=== PATIENT | female | born 1930 | race Caucasian/White ===

== ENCOUNTER 2019-02-07 06:43 | Inpatient (IN) | payer MEDICARE, OTHER ==
[~2019-02-07] VITALS: Ht 160 cm; Wt 54.9 kg
[~2019-02-07 06:43] MED LIST: CEREFOLIN NAC1 EAC1 PO; COLACE100 MG ORAL; COZAAR50 MG ORAL; CREON DR 24,001 EACH PO; CYMBALTA30 MG ORAL; DOXEPIN HCL10 MG ORAL; FERROUS SULFAT325 MG ORAL; IBUPROFEN400 MG ORAL; INVANZ1 G1 IM; INVANZ1 G1 IV; JANUVIA100 MG ORAL; LANTUS5 UNITS SUBQ; LINZESS145 MCG PO; LYRICA50 MG ORAL; METFORMIN HCL500 M1 ORAL; NORCO 5-325 TA1 EACH ORAL; NORTRIPTYLINE H50 MG PO; OMEPRAZOLE20 M2 ORAL; PRANDIN1 MG ORAL; REMERON15 MG ORAL; SYNTHROID75 MCG ORAL; TROSPIUM CHLORI20 MG PO; TYLENOL EXTRA500 MG ORAL; VITAMIN C500 M1 ORAL; VITAMIN D310000 UNIT PO; [UNRECOGNIZED DRUG - OTHER] PO
--- NOTE | 2019-02-07 06:45 | NUR ---
ED Nurse Note: pt brought in by [facility] from [facility] c/c seizure, per EMS report, pt was found on bed having seizure by nursing staff, tonic clonic 1 to 2 min. unk last known date for seizure, ems stated pt takes gabapentin for seizure. pt awake, withdraws to pain, makes incomprehensible sounds. Pt vss, NSR on radiographer cardiac catheterization, resp even and unlabored on RA, airway intact, -n/v/d. noted rooney. noted vaginal bleeding with clots. noted BM x1, brown formed stool. ERMD notified regarding pt's rooney condition and vaginal bleeding. noted redness on buttock area. pt cleaned and changed into gown. will cont monitor.
[2019-02-07] MEDS ORDERED: levETIRAcetam 1,000mg/NS100ml 100 ML IVPB ONE (07:00)
--- NOTE | 2019-02-07 07:05 | NUR ---
ED Nurse Note: pt off to CT.
--- NOTE | 2019-02-07 07:08 | NUR ---
HAND-OFF: Report given to YUE [facility]. PT KEISHALTEsther OFF TO CT.
--- NOTE | 2019-02-07 07:08 | NUR ---
ED Nurse Note: informed receiving RN regarding med recon, pt's packet w/ Dr. Armstrong, and regarding pt's skin condition, redness on buttoc, endorsed picture.
[2019-02-07 07:13] VITALS: BP 138/68
[2019-02-07 07:16] LABS: APPEARANCE,URINE CLEAR; BILIRUBIN, URINE NEGATIVE (NEGATIVE); COLOR,URINE PALE YELLOW; GLUCOSE, URINE (UA) NEGATIVE (NEGATIVE); KETONES,URINE NEGATIVE (NEGATIVE); LEUKOCYTE ESTERASE ,URINE 2+ (NEGATIVE); NITRITE,URINE NEGATIVE (NEGATIVE); PH,URINE 7 (4.5-8.0); PROTEIN,URINE 1+ (NEGATIVE); UROBILINOGEN,URINE NORMAL MG/DL (0.0-1.0)
[2019-02-07 07:21] LABS: BASOPHILS % (AUTO) 1.4 % (0.0-2.0); EOSINOPHILS % (AUTO) 1.8 % (0.0-3.0); HEMATOCRIT 38.7 % (37.0-47.0); HEMOGLOBIN 12.9 G/DL (12.0-16.0); LYMPHOCYTES % (AUTO) 36.4 % (20.0-45.0); MEAN CORPUSCULAR VOLUME 88 FL (80-99); MONOCYTES % (AUTO) 8.1 % (1.0-10.0); NEUTROPHILS % (AUTO) 52.2 % (45.0-75.0); PLATELET COUNT 145 K/UL (150-450); RED BLOOD COUNT 4.39 M/UL (4.20-5.40); RED CELL DISTRIBUTION WIDTH 12.4 % (11.6-14.8); WHITE BLOOD COUNT 7.7 K/UL (4.8-10.8)
[2019-02-07 07:29] LABS: INR 0.9 (0.9-1.1)
[2019-02-07 07:37] LABS: ANION GAP 11 mmol/L (5-15); BLOOD UREA NITROGEN 9 mg/dL (7-18); CALCIUM 9.7 MG/DL (8.5-10.1); CARBON DIOXIDE 23 MMOL/L (21-32); CHLORIDE 103 MMOL/L (98-107); CREATININE 0.7 MG/DL (0.55-1.30); POTASSIUM 4.5 MMOL/L (3.5-5.1); SODIUM 137 MMOL/L (136-145)
[2019-02-07 07:42] LABS: ALANINE AMINOTRANSFERASE 21 U/L (12-78); ALBUMIN 3.3 G/DL (3.4-5.0); ALBUMIN/GLOBULIN RATIO 1.1 (1.0-2.7); ALKALINE PHOSPHATASE 73 U/L (46-116); ASPARTATE AMINO TRANSFERASE 38 U/L (15-37); BILIRUBIN,TOTAL 0.3 MG/DL (0.2-1.0); CKMB 0.8 NG/ML (0.0-3.6); CREATINE KINASE 87 U/L (26-308)
--- NOTE | 2019-02-07 07:48 | NUR ---
ED Nurse Note: RN TOOK PICTURE OF SACRAL REDNESS. UNABLE TO UPLOAD IMAGE AT THIS TIME.
[2019-02-07] MEDS ORDERED: Azithromycin 500 MG in NS 275 ML IV ONE (08:00)
[2019-02-07] MEDS ORDERED: Piperacillin/Tazobactam 3.375 GM in NS 110 ML IVPB ONE (08:00)
--- NOTE | 2019-02-07 08:15 | History and Physical Report ---
DATE OF ADMISSION: 02/07/2019 CHIEF COMPLAINT: Seizures. HISTORY OF PRESENT ILLNESS: The patient is an 88-year-old female. She has multiple medical problems including history of stroke with left-sided hemiparesis, bronchospasm, bronchiectasis, history of urinary tract infections, meningioma, and diabetes. She was [facility] for [facility] antibiotic therapy for urinary tract infection. 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 She was less responsive after the seizure episode, was transferred here to the emergency room. She is currently just arrived. She is awake and just nod, but otherwise she does not follow commands. She is fairly somnolent and she does open her eyes and quickly falls back to sleep, but is easily arousable. PAST MEDICAL HISTORY: As above. PAST SURGICAL HISTORY: None. CURRENT MEDICATIONS: Reconciled and reviewed. ALLERGIES: None. FAMILY HISTORY: Unknown. SOCIAL HISTORY: There is no known history of tobacco, ethanol, or drugs. REVIEW OF SYSTEMS: Unobtainable as the patient is nonverbal. PHYSICAL EXAMINATION: VITAL SIGNS: Temperature 98 degrees, blood pressure 110/70, pulse 60, respirations 20. GENERAL: The patient is a chronically ill-appearing female. She is arousable, but is minimally verbal. NECK: Supple. HEART: Regular rate and rhythm. LUNGS: Clear. ABDOMEN: Soft, nontender, nondistended. EXTREMITIES: Without clubbing, cyanosis. NEUROLOGIC: The patient just nod yes and no to questions, but otherwise does not follow any commands. LABORATORY DATA: CT scan of the head are currently pending. ASSESSMENT: This is an elderly female with a history of diabetes, hypertension, prior history of stroke, questionable history of meningioma, admitted with new onset seizures. PLAN: Follow up head CT and routine laboratories. Well with Keppra. Neurology consultation. Admit to tele bed for further monitoring. The patient need swallow evaluation. Oh Armstrong M.D. DR: IVONE JOB#: [id number] CC:
[2019-02-07 09:00] VITALS: BP 117/60
--- NOTE | 2019-02-07 09:10 | NUR ---
ED Nurse Note: FAMILY MEMBER AT THE BED SIDE. SPOKEN TO DR GUTIERREZ ABOUT PT'S CONDITION.
--- NOTE | 2019-02-07 09:23 | Emergency Room Report ---
History of Present Illness General Chief Complaint: Seizure Source: Family Member, Medical Record, EMS Present Illness HPI 88-year-old female presents ED for evaluation. Patient brought in by EMS status post seizure this morning. Witnessed by nursing staff. Patient resides in [facility] facility. Lasted for a minute then resolved. Upon arrival patient postictal. EMS notes there is a history of seizures but does not see any antiepileptic occasions on her list. No reported fevers or chills. Nursing staff states that patient was transferred to SNF from [facility]. 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 At [facility]. Was on epileptic medication shortly after. But none at this time. Is currently receiving antibiotics for UTI. Patient is unable to provide any additional history at this time. No other aggravating relieving factors. No other associated symptoms Allergies: Coded Allergies: No Known Allergies (Unverified , 01/20/15) Patient History Past Medical History: DM, CVA/TIA Past Surgical History: other - brain surgery Pertinent Family History: none Social History: Denies: smoking, alcohol use, drug use Now: No Immunizations: UTD Reviewed Nursing Documentation: PMH: Agreed; PSxH: Agreed Nursing Documentation-PMH Hx Cardiac Problems: No Hx Diabetes: Yes Hx Cancer: Yes - Skin Ca on top of head,Bx done Hx Gastrointestinal Problems: No Hx Neurological Problems: Yes Hx Cerebrovascular Accident: Yes - 2011 Hx Neurologic Surgery: Yes - Head tumor surgery in 2011 Review of Systems All Other Systems: negative except mentioned in HPI Physical Exam Vital Signs Date Time Temp Pulse Resp B/P (MAP) Pulse Ox O2 Delivery O2 Flow Rate FiO2 02/07/19 06:45 98.8 79 18 138/68 (91) 100 Room Air Sp02 EP Interpretation: reviewed, normal General Appearance: lethargic, Postictal Head: normocephalic, atraumatic Eyes: bilateral eye normal inspection, bilateral eye PERRL ENT: hearing grossly normal, normal pharynx, no angioedema, normal voice Neck: full range of motion, supple/symm/no masses Respiratory: chest non-tender, lungs clear, normal breath sounds, speaking full sentences Cardiovascular #1: regular rate, rhythm, no edema Cardiovascular #2: 2+ carotid (R), 2+ carotid (L), 2+ radial (R), 2+ radial (L) , 2+ dorsalis pedis (R), 2+ dorsalis pedis (L) Gastrointestinal: normal bowel sounds, non tender, soft, non-distended, no guarding, no rebound Rectal: deferred Genitourinary: normal inspection, no CVA tenderness Musculoskeletal: back normal, gait/station normal, normal range of motion, non- tender Neurologic: other - nonverbal Psychiatric: other - nonverbal Reflexes: 3+ bicep (R), 3+ bicep (L), 3+ tricep (R), 3+ tricep (L), 3+ knee (R) , 3+ knee (L) Skin: normal color, no rash, warm/dry, well hydrated Lymphatic: no adenopathy Medical Decision Making Diagnostic Impression: Primary Impression: Sepsis Qualified Codes: A41.9 - Sepsis, unspecified organism Additional Impressions: UTI (lower urinary tract infection) Pneumonia Qualified Codes: J18.9 - Pneumonia, unspecified organism Seizure Brain mass ER Course Hospital Course 88-year-old F presents to ED status post seizure. currently on antibiotics for UTI. h/o brain mass Differential diagnosis includes- hypontremia, sepsis, intracranial bleed Clinical course Patient placed on stretcher. Initial history and physical I ordered labs, IV fluids, CT brain Labs-electrolytes okay, no leukocyosis, hemoglobin/hematocrit stable. UA + bacteria. lactic elevated EKG - NSR, no acute ischemic changes interpreted by me CXR - bilateral infltrates CT Brain R sided mass with some mass effect and edema Given loading dose of Keppra. Given 30 cc/kg fluid bolus. Given antibiotics. discussed findings with son who is at bedside. Case discussed with Dr. Armstrong and he agreed to accept the patient to his service for further care and support. i. I feel this is a highly complex case requiring extensive working including EKG/Rhythm strip, Xray/CT/US, Blood/urine lab work, repeat exams while in ED, and administration of strong opiates/narcotics for pain control, admission to hospital or close patient follow up. Diagnosis - sepsis, UTI, pneumonia, seizure, brain mass admitted to telemetry in serious condition Labs Test 02/07/19 06:30 White Blood Count 7.7 K/UL (4.8-10.8) Red Blood Count 4.39 M/UL (4.20-5.40) Hemoglobin 12.9 G/DL (12.0-16.0) Hematocrit 38.7 % (37.0-47.0) Mean Corpuscular Volume 88 FL (80-99) Mean Corpuscular Hemoglobin 29.4 PG (27.0-31.0) Mean Corpuscular Hemoglobin Concent 33.4 G/DL (32.0-36.0) Red Cell Distribution Width 12.4 % (11.6-14.8) Platelet Count 145 K/UL (150-450) Mean Platelet Volume 8.0 FL (6.5-10.1) Neutrophils (%) (Auto) 52.2 % (45.0-75.0) Lymphocytes (%) (Auto) 36.4 % (20.0-45.0) Monocytes (%) (Auto) 8.1 % (1.0-10.0) Eosinophils (%) (Auto) 1.8 % (0.0-3.0) Basophils (%) (Auto) 1.4 % (0.0-2.0) Prothrombin Time 10.1 SEC (9.30-11.50) Prothromb Time International Ratio 0.9 (0.9-1.1) Activated Partial Thromboplast Time 25 SEC (23-33) Urine Color Pale yellow Urine Appearance Clear Urine pH 7 (4.5-8.0) Urine Specific [place] 1.010 (1.005-1.035) Urine Protein 1+ (NEGATIVE) Urine Glucose (UA) Negative (NEGATIVE) Urine Ketones Negative (NEGATIVE) Urine Blood 4+ (NEGATIVE) Urine Nitrite Negative (NEGATIVE) Urine Bilirubin Negative (NEGATIVE) Urine Urobilinogen Normal MG/DL (0.0-1.0) Urine Leukocyte Esterase 2+ (NEGATIVE) Urine RBC 5-10 /HPF (0 - 2) Urine WBC 10-15 /HPF (0 - 2) Urine Squamous Epithelial Cells Few /LPF (NONE/OCC) Urine Bacteria Few /HPF (NONE) Sodium Level 137 MMOL/L (136-145) Potassium Level 4.5 MMOL/L (3.5-5.1) Chloride Level 103 MMOL/L (98-107) Carbon Dioxide Level 23 MMOL/L (21-32) Anion Gap 11 mmol/L (5-15) Blood Urea Nitrogen 9 mg/dL (7-18) Creatinine 0.7 MG/DL (0.55-1.30) Estimat Glomerular Filtration Rate mL/min (>60) Glucose Level 141 MG/DL (74-106) Lactic Acid Level 3.00 mmol/L (0.4-2.0) Calcium Level 9.7 MG/DL (8.5-10.1) Total Bilirubin 0.3 MG/DL (0.2-1.0) Aspartate Amino Transf (AST/SGOT) 38 U/L (15-37) Alanine Aminotransferase (ALT/SGPT) 21 U/L (12-78) Alkaline Phosphatase 73 U/L (46-116) Total Creatine Kinase 87 U/L (26-308) Creatine Kinase MB 0.8 NG/ML (0.0-3.6) Creatine Kinase MB Relative Index 0.9 Troponin I 0.007 ng/mL (0.000-0.056) Pro-B-Type Natriuretic Peptide 156 pg/mL (0-125) Total Protein 6.2 G/DL (6.4-8.2) Albumin 3.3 G/DL (3.4-5.0) Globulin 2.9 g/dL Albumin/Globulin Ratio 1.1 (1.0-2.7) EKG Diagnostic Results Rate: normal Rhythm: NSR ST Segments: no acute changes ASA given to the pt in ED: No Rhythm Strip Diag. Results EP Interpretation: yes Rhythm: NSR, no PVC's, no ectopy Chest X-Ray Diagnostic Results Chest X-Ray Diagnostic Results : Chest X-Ray Ordered: Yes # of Views/Limited/Complete: 1 View Indication: Other EP Interpretation: Yes Interpretation: no pneumothorax, other - interstitial congestion/infiltrate Impression: Other - pneumonia Electronically Signed by: Electronically signed by Scar Boo MD CT/MRI/US Diagnostic Results CT/MRI/US Diagnostic Results : Imaging Test Ordered: CT head Impression Brain: However, there is a new heterogeneous masslike structure in the right centrum semi-ovale, extending to the right vertex. It measures approximate 5.2 x 3.5 cm in AP by transverse dimension. There is evidence of surrounding edema. There is slight mass effect upon the occipital horn of the right lateral ventricle. There is no evidence of acute intracranial hemorrhage. Midline shift: There is slight midline shift to the left, approximately 5 mm. Ventricles: Unremarkable. No ventriculomegaly. Last Vital Signs Date Time Temp Pulse Resp B/P (MAP) Pulse Ox O2 Delivery O2 Flow Rate FiO2 02/07/19 07:13 79 18 Room Air 02/07/19 07:13 98.8 138/68 100 Status: improved Disposition: ADMITTED INPATIENT Condition: Serious Referrals: Oh Armstrong MD (PCP) Scar Boo MD Feb 07, 2019 09:23
--- NOTE | 2019-02-07 10:16 | NUR ---
ED Nurse Note: REPEAT LACTIC ACID SPECIMEN SENT.
[2019-02-07 11:00] VITALS: BP 108/70
--- NOTE | 2019-02-07 11:02 | NUR ---
ED Nurse Note: REPORT GIVEN TO HOLLI TURNER OF TELEMTRY UNIT.
--- NOTE | 2019-02-07 11:34 | NUR ---
ED Nurse Note: PT [facility] VSS.
--- NOTE | 2019-02-07 11:58 | NUR ---
NURSE NOTES: Pt transferred to floor safely from ED. teletypesetter monitor applied and pt is SR. Patient belongings list verified. Report received from YUE Beaver. Pt shows no signs of distress. Pt is oriented, but lethargic. Difficult to get answers to questions due to lethargy. Daughter at bedside. IV sites are patent, intact, and saline locked. Negron is in place, patent, and draining to gravity at foot of bed. Seizure precautions in place. Bed is at lowest position, brakes engaged, siderails x2, bed alarm on, and call light within reach. Pt is in stable condition. Left message with Dr. Armstrong regarding admission orders; awaiting response.
[2019-02-07 12:00] VITALS: BP 106/57
[2019-02-07] MEDS ORDERED: HYDROcodone/Acetamin 5/325 tab ORAL PRN (12:00)
[2019-02-07] MEDS ORDERED: Acetaminophen 500mg (ES) tab ORAL PRN (12:00)
--- NOTE | 2019-02-07 13:20 | NUR ---
NURSE NOTES: Left two messages (one at 1218 and one at 1311) with Dr. Armstrong regarding DVT prophylaxis, code status, and whether he wants to continue rooeny catheter. Awaiting response.
--- NOTE | 2019-02-07 13:50 | NUR ---
NURSE NOTES: Pt's heart rate getting at low as 45 on personnel monitor. With arousal, patient's heart rate increases to 60s. Left message with Dr. Armstrong regarding heart rate; awaiting response.
--- NOTE | 2019-02-07 15:24 | NUR ---
NURSE NOTES: Dr. Armstrong aware of pt's heart rate; no new orders. Dr. Armstrong also hasn't responded about code status, so patient will be full code for now until Dr. Armstrong responds.
[2019-02-07] MEDS: Ertapenem 1gm in NS 55ml IVPB SCH (15:39)
[2019-02-07] MEDS: Dexamethasone 4mg/ml vial IVP SCH ×2 (15:40→17:17)
[2019-02-07 16:00] VITALS: BP 145/93
--- NOTE | 2019-02-07 16:07 | Consultation ---
History of Present Illness General Date patient seen: Feb 07, 2019 Chief Complaint: Seizure Referring physician: Dr. Armstrong Present Illness HPI The patient is an 88-year-old female. She has multiple medical problems including history of stroke with left-sided hemiparesis, bronchospasm, bronchiectasis, history of urinary tract infections, meningioma, and diabetes. [facility] for urinary tract infection. 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 She was less responsive after the seizure episode, was transferred here to the emergency room. She is currently just arrived. She is awake and just nod, but otherwise she does not follow commands. She is fairly somnolent and she does open her eyes and quickly falls back to sleep, but is easily arousable. Allergies: Coded Allergies: No Known Allergies (Unverified , 01/20/15) Medication History Scheduled Amlodipine Besylate* (Amlodipine Besylate*), 2.5 MG ORAL DAILY, (Reported) Ascorbic Acid* (Vitamin C*), 500 MG ORAL DAILY, (Reported) Bisacodyl (Dulcolax), 10 MG RC DAILY, (Reported) Budesonide (Pulmicort), 0.5 MG IH RT BID, (Reported) Carvedilol* (Carvedilol*), 3.125 MG ORAL BID, (Reported) Cholecalciferol (Vitamin D3) (Vitamin D3), 1,000 UNIT PO Q1200, (Reported) Docusate Sodium* (Colace*), 100 MG ORAL TWICE A DAY, (Reported) Doxepin HCl (Doxepin HCl), 10 MG ORAL BEDTIME, (Reported) Duloxetine Hcl* (Cymbalta*), 30 MG ORAL DAILY, (Reported) Enoxaparin* (Lovenox*), 40 MG SUBQ DAILY, (Reported) Ertapenem (Invanz), 1 GM IV DAILY Famotidine (Famotidine), 20 MG ORAL TWICE A DAY, (Reported) Ferrous Sulfate* (Ferrous Sulfate*), 325 MG ORAL DAILY, (Reported) Gabapentin* (Gabapentin*), 100 MG ORAL BID, (Reported) Insulin Lispro (Humalog), 6 SUBQ 4X Daily WC and HS, (Reported) Levothyroxine Sodium* (Synthroid*), 88 MCG ORAL DAILY, (Reported) Lipase/Protease/Amylase (Creon Dr 24,000 Units Capsule), 1 EACH PO TID, ( Reported) Magnesium Hydroxide* (Milk Of Magnesia*), 30 ML ORAL DAILY, (Reported) Melatonin (Melatonin), 0.5 MG PO BEDTIME, (Reported) Potassium Chloride (Klor-Con 10), 10 MEQ ORAL BID, (Reported) Rosuvastatin Calcium* (Crestor*), 5 MG ORAL TWICE A WEEK, (Reported) Sennosides (Senokot), 8.6 MG PO BID, (Reported) Sitagliptin (Januvia), 50 MG ORAL DAILY, (Reported) [Erythromycin], 1 APPLIC BOTH EYES BEDTIME, (Reported) Scheduled PRN Acetaminophen (Tylenol), 650 MG ORAL Q6H PRN for Prn Pain/Headache/Temp > 101, ( Reported) Acetaminophen* (Tylenol Extra Strength*), 500 MG ORAL Q6H PRN for Mild Pain/ Temp > 100.5, (Reported) Hydrocodone Bit/Acetaminophen 5-325* ([place] 5-325*), 1 TAB ORAL Q6H PRN for For Pain, (Reported) Miscellaneous Medications Insulin Detemir (Levemir Flexpen), 12 SUBQ, (Reported) Discontinued Medications Erythromycin Base (Erythromycin*), 1 APPLIC BOTH EYES, (Reported) Discontinued Reason: Prescription changed Ibuprofen* (Motrin*), 400 MG ORAL Q6H PRN for Moderate Pain (Pain Scale 4-6), ( Reported) Discontinued Reason: Pt stopped taking med Insulin Glargine (Lantus), 12 SUBQ DAILY , (Reported) Discontinued Reason: Pt stopped taking med Levothyroxine Sodium* (Levothyroxine Sodium*), 88 MCG ORAL DAILY, (Reported) Discontinued Reason: Prescription changed Linaclotide (Linzess), 145 MCG PO DAILY, (Reported) Discontinued Reason: Pt stopped taking med Lmfol Ca/Acetyl/Mb12/Algal Oil (Cerefolin Nac Caplet), 1 EACH PO DAILY, ( Reported) Discontinued Reason: Pt stopped taking med Losartan Potassium* (Cozaar*), 50 MG ORAL DAILY, (Reported) Discontinued Reason: Pt stopped taking med Metformin Hcl* (Metformin Hcl*), 500 MG ORAL TID, (Reported) Discontinued Reason: Pt stopped taking med Mirtazapine* (Remeron*), 15 MG ORAL BEDTIME, (Reported) Discontinued Reason: Pt stopped taking med Nortriptyline Hcl (Nortriptyline Hcl), 50 MG PO QHS, (Reported) Discontinued Reason: Pt stopped taking med Omeprazole (Omeprazole), 20 MG ORAL ACBREAKFAST, (Reported) Discontinued Reason: Pt stopped taking med Pregabalin (Lyrica), 50 MG ORAL THREE TIMES A DAY, (Reported) Discontinued Reason: Pt stopped taking med Repaglinide (Prandin), 1 MG ORAL THREE TIMES A DAY, (Reported) Discontinued Reason: Pt stopped taking med Sitagliptin (Januvia), 100 MG ORAL 0800, (Reported) Discontinued Reason: Pt stopped taking med Trospium Chloride (Trospium Chloride), 20 MG PO BID, (Reported) Discontinued Reason: Pt stopped taking med [Mitochondrial Nrg], 1 TAB PO Q1200, (Reported) Discontinued Reason: Pt stopped taking med Patient History Limited by: language barrier History Provided By: Medical Record Healthcare decision maker Resuscitation status Full Code Advanced Directive on File No Review of Systems Constitutional: Denies: no symptoms, see HPI, chills, sweats, fever, malaise, weakness, other Eye: Denies: no symptoms, see HPI, eye pain, blurred vision, tearing, double vision, nose pain, nose congestion, acuity changes, discharge, other ENT: Denies: no symptoms, see HPI, ear pain, ear discharge, nose pain, nose congestion, throat pain, throat swelling, mouth pain, hearing loss, nasal discharge, other Respiratory: Denies: no symptoms, see HPI, cough, orthopnea, shortness of breath, stridor, wheezing, SHARP, sputum, other Cardiovascular: Denies: no symptoms, see HPI, chest pain, edema, palpitations, syncope, PND, other Gastrointestinal: Denies: no symptoms, see HPI, abdominal pain, constipation, diarrhea, nausea, vomiting, melena, hematemesis, other Genitourinary: Denies: no symptoms, see HPI, discharge, dysuria, frequency, hematuria, pain, retention, incontinence, urgency, vag bleed/dc, other Musculoskeletal: Denies: no symptoms, see HPI, back pain, gout, joint pain, joint swelling, muscle pain, muscle stiffness, other Skin: Denies: no symptoms, see HPI, rash, change in color, change in hair/nails , dryness, lesions, other Psychiatric: Denies: no symptoms, see HPI, prior hx, anxiety, depressed feelings, emotional problems, SI, HI, hallucinations, other Neurological: Denies: no symptoms, see HPI, headache, numbness, paresthesia, seizure, tingling, tremors, focal weakness, syncope, dizziness, other Endocrine: Denies: no symptoms, see HPI, excessive sweating, flushing, intolerance to temperature, increased thirst, increased urine, unexplained weight loss, other Hematologic/Lymphatic: Denies: no symptoms, see HPI, anemia, blood clots, easy bleeding, easy bruising, swollen glands, diathesis, other All Other Systems: negative except mentioned in HPI Physical Exam General Appearance: WD/WN, no apparent distress, alert Lines, tubes and drains: peripheral HEENT: normocephalic, atraumatic, anicteric, mucous membranes moist, PERRL Neck: non-tender, normal alignment, supple, normal inspection Respiratory/Chest: normal breath sounds, no respiratory distress, no accessory muscle use Cardiovascular/Chest: normal peripheral pulses, no JVD Extremities: normal range of motion, non-tender, normal inspection Skin Exam: normal pigmentation, warm/dry Neurologic: alert, oriented x 3, responsive, normal mood/affect, motor weakness , other - Left facial weakness, left arm/ leg hemiparesis. Full strength on right side. No dysarthria / aphasia Last 24 Hour Vital Signs Date Time Temp Pulse Resp B/P (MAP) Pulse Ox O2 Delivery O2 Flow Rate FiO2 02/07/19 11:34 98.6 88 15 105/76 98 Room Air 02/07/19 11:00 97.9 76 17 108/70 100 Room Air 02/07/19 09:00 98.5 80 15 117/60 100 Room Air 02/07/19 07:13 79 18 Room Air 02/07/19 07:13 98.8 79 18 138/68 100 Room Air 02/07/19 06:45 98.8 79 18 138/68 (91) 100 Room Air Laboratory Tests Test 02/07/19 06:30 02/07/19 10:10 02/07/19 14:06 White Blood Count 7.7 K/UL (4.8-10.8) Red Blood Count 4.39 M/UL (4.20-5.40) Hemoglobin 12.9 G/DL (12.0-16.0) Hematocrit 38.7 % (37.0-47.0) Mean Corpuscular Volume 88 FL (80-99) Mean Corpuscular Hemoglobin 29.4 PG (27.0-31.0) Mean Corpuscular Hemoglobin Concent 33.4 G/DL (32.0-36.0) Red Cell Distribution Width 12.4 % (11.6-14.8) Platelet Count 145 K/UL (150-450) L Mean Platelet Volume 8.0 FL (6.5-10.1) Neutrophils (%) (Auto) 52.2 % (45.0-75.0) Lymphocytes (%) (Auto) 36.4 % (20.0-45.0) Monocytes (%) (Auto) 8.1 % (1.0-10.0) Eosinophils (%) (Auto) 1.8 % (0.0-3.0) Basophils (%) (Auto) 1.4 % (0.0-2.0) Prothrombin Time 10.1 SEC (9.30-11.50) Prothromb Time International Ratio 0.9 (0.9-1.1) Activated Partial Thromboplast Time 25 SEC (23-33) Urine Color Pale yellow Urine Appearance Clear Urine pH 7 (4.5-8.0) Urine Specific [place] 1.010 (1.005-1.035) Urine Protein 1+ (NEGATIVE) H Urine Glucose (UA) Negative (NEGATIVE) Urine Ketones Negative (NEGATIVE) Urine Blood 4+ (NEGATIVE) H Urine Nitrite Negative (NEGATIVE) Urine Bilirubin Negative (NEGATIVE) Urine Urobilinogen Normal MG/DL (0.0-1.0) Urine Leukocyte Esterase 2+ (NEGATIVE) H Urine RBC 5-10 /HPF (0 - 2) H Urine WBC 10-15 /HPF (0 - 2) H Urine Squamous Epithelial Cells Few /LPF (NONE/OCC) Urine Bacteria Few /HPF (NONE) Sodium Level 137 MMOL/L (136-145) Potassium Level 4.5 MMOL/L (3.5-5.1) Chloride Level 103 MMOL/L (98-107) Carbon Dioxide Level 23 MMOL/L (21-32) Anion Gap 11 mmol/L (5-15) Blood Urea Nitrogen 9 mg/dL (7-18) Creatinine 0.7 MG/DL (0.55-1.30) Estimat Glomerular Filtration Rate mL/min (>60) Glucose Level 141 MG/DL (74-106) H Lactic Acid Level 3.00 mmol/L (0.4-2.0) H 1.50 mmol/L (0.66-2.22) Calcium Level 9.7 MG/DL (8.5-10.1) Total Bilirubin 0.3 MG/DL (0.2-1.0) Aspartate Amino Transf (AST/SGOT) 38 U/L (15-37) H Alanine Aminotransferase (ALT/SGPT) 21 U/L (12-78) Alkaline Phosphatase 73 U/L (46-116) Total Creatine Kinase 87 U/L (26-308) Creatine Kinase MB 0.8 NG/ML (0.0-3.6) Creatine Kinase MB Relative Index 0.9 Troponin I 0.007 ng/mL (0.000-0.056) Pro-B-Type Natriuretic Peptide 156 pg/mL (0-125) H Total Protein 6.2 G/DL (6.4-8.2) L Albumin 3.3 G/DL (3.4-5.0) L Globulin 2.9 g/dL Albumin/Globulin Ratio 1.1 (1.0-2.7) Thyroid Stimulating Hormone (TSH) 2.401 uiU/mL (0.358-3.740) Arterial Blood pH 7.452 (7.350-7.450) Arterial Blood Partial Pressure CO2 33.4 mmHg (35.0-45.0) L Arterial Blood Partial Pressure O2 90.6 mmHg (75.0-100.0) Arterial Blood HCO3 22.8 mmol/L (22.0-26.0) Arterial Blood Oxygen Saturation 96.3 % (95-100) Arterial Blood Base Excess -0.6 (-2-2) Bacilio Test Positive Height (Feet): 5 Height (Inches): 3.00 Weight (Pounds): 145 Medications Current Medications Medications (Trade) Dose Ordered Sig/Stefano Route PRN Reason Start Time Stop Time Status Last Admin Dose Admin Acetaminophen (Tylenol) 500 mg Q6H PRN ORAL Mild Pain/Temp > 100.5 02/07/19 12:00 03/09/19 11:59 Acetaminophen/ Hydrocodone Bitart ([place] 5/325) 1 tab Q6H PRN ORAL pain 4-10 02/07/19 12:00 02/14/19 11:59 Ascorbic Acid (Vitamin C) 500 mg DAILY ORAL 02/08/19 09:00 03/10/19 08:59 Dexamethasone Sodium Phosphate (Decadron 4mg/ml vial) 4 mg Q6HR IVP 02/07/19 15:00 03/09/19 14:59 02/07/19 15:40 Dextrose (Dextrose 50%) 25 ml Q30M PRN IV Hypoglycemia 02/07/19 12:15 03/09/19 12:14 Dextrose (Dextrose 50%) 50 ml Q30M PRN IV Hypoglycemia 02/07/19 12:15 03/09/19 12:14 Docusate Sodium (Colace) 100 mg TWICE A DAY ORAL 02/07/19 18:00 03/09/19 17:59 Doxepin HCl (SINEquan) 10 mg BEDTIME ORAL 02/07/19 21:00 03/09/19 20:59 Duloxetine HCl (Cymbalta) 30 mg DAILY ORAL 02/08/19 09:00 03/10/19 08:59 Ertapenem 1 gm/ Sodium Chloride 55 ml @ 110 mls/hr Q24H IVPB 02/07/19 15:00 02/12/19 14:59 02/07/19 15:39 Ferrous Sulfate (Feosol) 325 mg DAILY ORAL 02/08/19 09:00 03/10/19 08:59 Insulin Aspart (NovoLOG) BEFORE MEALS AND HS SUBQ 02/07/19 16:30 03/09/19 16:29 Insulin Detemir (Levemir) 12 units BEDTIME SUBQ 02/07/19 21:00 03/09/19 20:59 Levetiracetam 100 ml @ 400 mls/hr Q12HR IVPB 02/07/19 21:00 03/09/19 20:59 Levothyroxine Sodium (Synthroid) 75 mcg ACBREAKFAST ORAL 02/08/19 06:30 03/10/19 06:29 Losartan Potassium (Cozaar) 50 mg DAILY ORAL 02/08/19 09:00 03/10/19 08:59 Metformin HCl (Glucophage) 500 mg TID ORAL 02/07/19 18:00 03/09/19 17:59 Mirtazapine (Remeron) 15 mg BEDTIME ORAL 02/07/19 21:00 03/09/19 20:59 Pregabalin (Lyrica) 50 mg THREE TIMES A DAY ORAL 02/07/19 18:00 03/09/19 17:59 Repaglinide (Prandin) 1 mg TIAC ORAL 02/07/19 16:30 03/09/19 16:29 Sitagliptin Phosphate (Januvia) 100 mg Q24H ORAL 02/08/19 08:00 03/10/19 07:59 Assessment/Plan Problem List: (1) Limited mobility ICD Codes: Z74.09 - Limited mobility SNOMED: 6883794 (2) Pneumonia ICD Codes: J18.9 - Pneumonia, unspecified organism SNOMED: 979045337 Qualifiers: Qualified Codes: J18.9 - Pneumonia, unspecified organism (3) UTI (lower urinary tract infection) ICD Codes: N39.0 - Urinary tract infection, site not specified SNOMED: 0098045 (4) Sepsis ICD Codes: A41.9 - Sepsis, unspecified organism SNOMED: 18061947 Qualifiers: Qualified Codes: A41.9 - Sepsis, unspecified organism (5) Seizure ICD Codes: R56.9 - Unspecified convulsions SNOMED: 27751000 (6) Episode of generalized weakness ICD Codes: R53.1 - Weakness SNOMED: 52031398 (7) Encephalopathy due to metabolic factor or toxin SNOMED: 032423911 (8) Lactic acidosis ICD Codes: E87.2 - Acidosis SNOMED: 09483360 (9) History of meningioma of the brain ICD Codes: Z86.011 - Personal history of benign neoplasm of the brain SNOMED: 148696877 Status: stable Assessment/Plan: Metabolic disturbance vs Centralized seizure Q4 Hour Neuro Obs Keppra 500mg BID to continue IV EEG Routine MRI Brain W/o Contrast SBP<140 Maintain normoglycemia with ISS ST Evaluation Consider Enteral Nutrition? Seizure Precautions Fidelina Ortiz N.P. Feb 07, 2019 16:07
[2019-02-07] MEDS: Repaglinide 1mg tab ORAL SCH (16:13)
[2019-02-07] MEDS: NovoLOG Insulin Flexpen SUBQ SCH ×2 (16:30→21:11)
[2019-02-07] MEDS: metFORMIN 500mg tab ORAL SCH (17:08)
[2019-02-07] MEDS: Docusate 100mg cap ORAL SCH (17:08)
[2019-02-07] MEDS: Lyrica 50mg cap ORAL SCH (17:09)
--- NOTE | 2019-02-07 19:16 | NUR ---
HAND-OFF: Report given to YUE Cruz. Pt is in stable condition; plan of care endorsed.
--- NOTE | 2019-02-07 19:20 | NUR ---
NURSE NOTES: Received report from Denilson Briceño RN. Patient in bed asleep with no S/S of acute pain or distress noted at this time. Kept clean, dry, and comfortable in bed. IV line intact and patent SL and on continuous cardiac monitoring per protocol. FC intact patent, and draining for retention, MD aware and order renewed. Safety precaution in place; siderails X3 up, call light within reach, bed in lowest position, brakes and alarm on at all times. Needs and wants anticipated and attended, will continue plan of care and monitor for any changes noted.
[2019-02-07 20:00] VITALS: BP 156/66
--- NOTE | 2019-02-07 20:30 | NUR ---
NURSE NOTES: Called and notified Ferny Armstrong MD regarding additional orders. Left message and awaiting call-back
--- NOTE | 2019-02-07 21:00 | NUR ---
NURSE NOTES: New orders received and carried out per Ferny Armstrong MD. Will continue plan of care.
[2019-02-07] MEDS: levETIRAcetam 500mg/NS100ml 100 ML IVPB SCH (21:10)
[2019-02-07] MEDS: Levemir Flexpen SUBQ SCH (21:11)
[2019-02-07] MEDS: D5NS 1,000 ML IV SCH (21:25)
--- NOTE | 2019-02-07 23:15 | Consultation ---
DATE OF CONSULTATION: 02/07/2019 CARDIOLOGY CONSULTATION CONSULTING PHYSICIAN: Jimmie Cosby M.D. REQUESTING PHYSICIAN: Oh Armstrong M.D. REASON FOR CONSULTATION: Bradycardia in the setting of seizures. HISTORY OF PRESENT ILLNESS: This is an 88-year-old female. She has a known history of meningioma. She resides at a assisted facility. She developed twitching and partial seizure activity this morning and was transferred here. She was also notably less responsive after that episode. Cardiology consult has been requested due to the development of episodes of bradycardia. The patient has been arousable, but mostly somnolent since her admission. She has not had any episodes of hypertension. PAST MEDICAL HISTORY: Notable for coronary artery disease, insulin-requiring diabetes mellitus, dementia, depression, bronchiectasis, CVA with left hemiparesis, recurrent urinary tract infections, history of meningioma, and hypothyroidism. MEDICATIONS: Prior to admission, reviewed and reconciled. ALLERGIES: None. FAMILY HISTORY: Not known. SOCIAL HISTORY: Negative for smoking, alcohol, or substance abuse. REVIEW OF SYSTEMS: Cannot be reliably obtained from the patient. Pertinent data from review of records is outlined above. PHYSICAL EXAM: VITAL SIGNS: Blood pressure 110/70, heart rate 65, respiratory rate 20, and afebrile. Monitored rhythm, sinus with first-degree AV block and episodes of bradycardia as well as junctional rhythm in the high 30s. HEENT: Conjunctiva pink. Oropharynx clear. NECK: Supple. No jugular venous distention. LUNGS: Clear. CARDIAC: Regular rhythm and rate. Normal S1, S2. A 1/6 systolic apical murmur. ABDOMEN: Soft. EXTREMITIES: No edema. NEUROLOGIC: Left-sided weakness. LABORATORY DATA: Potassium 4.5, BUN 9, and creatinine 0.7. Lactic acid #1 is 3, repeated 1.5. Glucose 141. Troponin is normal. TSH 2.4. EKG with sinus rhythm, anterior and inferior infarction of indeterminate age. IMPRESSION: 1. Seizure disorder. 2. History of meningioma. 3. History of cerebrovascular accident. 4. 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 5. Ischemic heart disease with stable angina. 6. Mild protein-calorie malnutrition. 7. Insulin-requiring diabetes mellitus. 8. Resolved lactic acidosis. PLAN: 1. Cardiac monitoring. 2. Discontinue as necessary. 3. Psychiatric medications for now. 4. Maintenance hydration. 5. Seizure precautions. 6. Review CAT scan of the brain to evaluate for any central mediated etiology for her bradycardia. Otherwise, we will need to consider placement of a permanent pacemaker. 7. Echocardiogram will be obtained in the interim as well. Jimmie Cosby M.D. DR: SAMUEL JOB#: [id number] CC:
[2019-02-08] VITALS: BP 127/62
[2019-02-08] MEDS: Dexamethasone 4mg/ml vial IVP SCH ×4 (00:27→17:30)
--- NOTE | 2019-02-08 03:21 | NUR ---
NURSE NOTES: Patient in bed asleep with no S/S of distress at this time. Will continue to monitor.
[2019-02-08 04:00] VITALS: BP 117/68
[2019-02-08] MEDS: Repaglinide 1mg tab ORAL SCH ×3 (06:03→16:30)
[2019-02-08] MEDS: NovoLOG Insulin Flexpen SUBQ SCH ×4 (06:14→20:28)
--- NOTE | 2019-02-08 07:20 | NUR ---
HAND-OFF: Report given to Vitaliy Sales RN. Patient in bed with no S/S of distress noted. Endorsed plan of care.
--- NOTE | 2019-02-08 07:25 | NUR ---
NURSE NOTES: Received report from Anthony TURNER. Pt awake in bed and no c/o pain. Currently on NPO. No signs of distress noted. IV site in RFA 20G running with D5 NS@70ml/hr and LFA 22G SL patent and symptomatic. On room air. Bed in lowest position and locked. 3 X siderails up and covered with padding for seizure precaution. Pt on SCDs for DVT ppx. Will continue to monitor with current plan of care.
[2019-02-08 08:00] VITALS: BP 166/116
[2019-02-08] MEDS: Docusate 100mg cap ORAL SCH ×2 (08:43→18:00)
[2019-02-08] MEDS: Losartan 50mg tab ORAL SCH (08:43)
[2019-02-08] MEDS: metFORMIN 500mg tab ORAL SCH ×3 (08:43→18:00)
[2019-02-08] MEDS: DULoxetine 30mg cap ORAL SCH (08:43)
[2019-02-08] MEDS: Lyrica 50mg cap ORAL SCH ×3 (08:43→18:00)
[2019-02-08] MEDS: Ascorbic Acid 500mg tab ORAL SCH (08:44)
[2019-02-08] MEDS ORDERED: Ertapenem (INVanz) 1gm Inj IV SCH (09:00)
--- NOTE | 2019-02-08 09:30 | NUR ---
NURSE NOTES: Dr. Cosby aware of patient's intermittent A-Fib
[2019-02-08] MEDS: levETIRAcetam 500mg/NS100ml 100 ML IVPB SCH ×2 (09:31→20:23)
--- NOTE | 2019-02-08 09:35 | General Progress Note ---
Assessment/Plan Problem List: (1) Brain tumor ICD Codes: D49.6 - Neoplasm of unspecified behavior of brain SNOMED: 237994966 (2) Episode of generalized weakness ICD Codes: R53.1 - Weakness SNOMED: 08082607 (3) Brain mass ICD Codes: G93.9 - Disorder of brain, unspecified SNOMED: 046420305 (4) UTI (lower urinary tract infection) ICD Codes: N39.0 - Urinary tract infection, site not specified SNOMED: 6658449 (5) Sepsis ICD Codes: A41.9 - Sepsis, unspecified organism SNOMED: 58358068 Qualifiers: Qualified Codes: A41.9 - Sepsis, unspecified organism (6) Seizure ICD Codes: R56.9 - Unspecified convulsions SNOMED: 70638089 Status: stable, progressing Assessment/Plan: cont sz rx steroids swallow eval ivf monitor bs abx per id d/w son. wants to transfer pt to [facility](where pts PMD) is later this week Subjective ROS Limited/Unobtainable: No Constitutional: Reports: malaise, weakness HEENT: Reports: no symptoms Cardiovascular: Reports: no symptoms Respiratory: Reports: no symptoms Gastrointestinal/Abdominal: Reports: difficulty swallowing Genitourinary: Reports: no symptoms Neurologic/Psychiatric: Reports: pre-existing deficit, seizure Endocrine: Reports: no symptoms Hematologic/Lymphatic: Reports: no symptoms Allergies: Coded Allergies: No Known Allergies (Unverified , 01/20/15) All Systems: reviewed and negative except above Subjective no events. hypotension better. no szs. more alert. responds to simple questions/ commands. Objective Last 24 Hour Vital Signs Date Time Temp Pulse Resp B/P (MAP) Pulse Ox O2 Delivery O2 Flow Rate FiO2 02/08/19 08:43 117/68 02/08/19 04:00 60 02/08/19 04:00 97.9 75 17 117/68 (84) 95 02/08/19 00:00 98.1 73 18 127/62 (83) 97 02/08/19 00:00 66 02/07/19 21:00 Room Air 02/07/19 20:00 61 02/07/19 20:00 97.6 66 18 156/66 (96) 98 02/07/19 16:00 62 02/07/19 16:00 98.3 63 15 145/93 (110) 98 02/07/19 14:40 Room Air 02/07/19 12:00 60 02/07/19 12:00 97.7 73 16 106/57 (73) 98 02/07/19 11:34 98.6 88 15 105/76 98 Room Air 02/07/19 11:00 97.9 76 17 108/70 100 Room Air Intake and Output 02/07/19 02/08/19 19:00 07:00 Intake Total 2485 ml Output Total 1400 ml 850 ml Balance 1085 ml -850 ml Intake IV Total 2485 ml Output Urine Total 1400 ml 850 ml Laboratory Tests 02/07/19 10:10: Lactic Acid Level 1.50 02/07/19 14:06: Arterial Blood pH 7.452H, Arterial Blood Partial Pressure CO2 33.4L, Arterial Blood Partial Pressure O2 90.6, Arterial Blood HCO3 22.8, Arterial Blood Oxygen Saturation 96.3, Arterial Blood Base Excess -0.6, Bacilio Test Positive Height (Feet): 5 Height (Inches): 3.00 Weight (Pounds): 145 General Appearance: WD/WN, alert Neck: supple Cardiovascular: normal rate, regular rhythm Respiratory/Chest: chest wall non-tender, lungs clear, normal breath sounds Abdomen: normal bowel sounds, non tender, soft, no organomegaly Edema: no edema noted Arm (L), no edema noted Arm (R), no edema noted Leg (L), no edema noted Leg (R), no edema noted Pedal (L), no edema noted Pedal (R), no edema noted Generalized Neurologic: stitch separator II-XII grossly normal, motor weakness - left hemiparesis Oh Armstrong MD Feb 08, 2019 09:35
[2019-02-08 12:00] VITALS: BP 118/59
[2019-02-08] MEDS: D5NS 1,000 ML IV SCH (12:52)
[2019-02-08] MEDS: Ertapenem 1gm in NS 55ml IVPB SCH (14:34)
[2019-02-08 16:00] VITALS: BP 134/63
[2019-02-08] MEDS ORDERED: D5NS 1000ml IV ONE (16:02)
[2019-02-08] MEDS ORDERED: Tubing IV Secondary IV ONE (16:02)
[2019-02-08] MEDS ORDERED: LEVOTHYROXINE75 MCG ORAL (17:55)
[2019-02-08] MEDS ORDERED: HUMALOG100 UNIT/1 SUBQ (18:10)
[2019-02-08] MEDS ORDERED: DULCOLAX10 MG RC (18:10)
[2019-02-08] MEDS ORDERED: TYLENOL325 MG ORAL (18:10)
[2019-02-08] MEDS ORDERED: CARVEDILOL3.125 MG ORAL (18:10)
[2019-02-08] MEDS ORDERED: SENOKOT8.6 MG PO (18:10)
[2019-02-08] MEDS ORDERED: AMLODIPINE BES2.5 MG ORAL (18:10)
[2019-02-08] MEDS ORDERED: CRESTOR10 M2 ORAL (18:10)
[2019-02-08] MEDS ORDERED: ERYTHROMYCIN3.5 GM BOTH EYES (18:10)
[2019-02-08] MEDS ORDERED: PULMICORT0.5 MG/2 M IH (18:10)
[2019-02-08] MEDS ORDERED: KLOR-CON 1010 MEQ ORAL (18:10)
[2019-02-08] MEDS ORDERED: FAMOTIDINE20 MG ORAL (18:10)
[2019-02-08] MEDS ORDERED: LEVEMIR FL100 UNIT/1 SUBQ (18:10)
[2019-02-08] MEDS ORDERED: GABAPENTIN100 MG ORAL (18:10)
[2019-02-08] MEDS ORDERED: MILK OF MA400 MG/51 ORAL (18:10)
[2019-02-08] MEDS ORDERED: MELATONIN1 MG PO (18:10)
[2019-02-08] MEDS ORDERED: LOVENOX10 M4 SUBQ (18:10)
--- NOTE | 2019-02-08 18:45 | Consultation ---
DATE OF CONSULTATION: 02/08/2019 INFECTIOUS DISEASES CONSULTATION This consult is for coverage of Dr. Sue. CONSULTING PHYSICIAN: Phil Cortez M.D. PRIMARY ATTENDING PHYSICIAN: Oh Armstrong M.D. REASON FOR CONSULTATION: Pneumonitis, questionable urinary tract infection. HISTORY OF PRESENT ILLNESS: The patient is an 88-year-old white female admitted on 02/07/2019 from a halfway facility because of partial seizure. The patient was recently admitted to the nursing facility from another hospital and was taking ertapenem for treatment of UTI, seems to have dementia, and is a poor historian. PAST MEDICAL HISTORY: Significant for history of brain tumor, had craniotomy, diabetes mellitus, left CVA and hemiplegia, meningioma, hypothyroidism, and hypertension. ALLERGIES: No known drug allergy. MEDICATIONS: Ertapenem , Cymbalta, ferrous sulfate, losartan, Januvia, levothyroxine, Remeron, Keppra, Levemir insulin, Colace, metformin, [place], Tylenol. SOCIAL HISTORY: shelter resident with poor mental status. No other history obtainable. The patient speaks Farsi, few words. PHYSICAL EXAMINATION: VITAL SIGNS: Temperature 97.9, no fever since admission, pulse 68, blood pressure 117/68. GENERAL APPEARANCE: No acute distress. Awake. HEAD AND NECK: Julian conjunctivae. HEART: Normal rate. LUNGS: Clear. ABDOMEN: Soft and nontender. EXTREMITIES: Has no edema. NEUROLOGIC: Awake, alert, and responsive. Seems to have dementia. LABORATORY AND DIAGNOSTIC DATA: WBC 7.7, hemoglobin 12.9, hematocrit 38.7, and platelets 145,000. Sodium 137, potassium 4.5, chloride 103, bicarbonate 23, BUN 9, creatinine 0.7, glucose 141. Lactic acid 3. Albumin 3.3. Chest x-ray showed interstitial infiltrates, questionable pneumonitis, or edema. Blood gas showing pCO2 33.4, pO2 90.6, O2 saturation 96.3. CT scan of the head showed some mass in the brain. Urine culture still no growth. IMPRESSION: 1. Seizure activity, 2. Brain tumor. 3. Recent history of urinary tract infection, was on ertapenem. 4. May have pneumonitis or aspiration. 5. Diabetes mellitus. 6. Hypertension. 7. Hypothyroidism. RECOMMENDATIONS: We will continue Ertapenem. We will follow up the chest x-ray. If the patient remains stable, may stop antibiotics soon. At the end of my exam, I thank Dr. Armstrong, for involving me in the care of this patient. Phil Cortez M.D. DR: Quirino JOB#: [id number] CC: SELVIN
[2019-02-08] MEDS ORDERED: JANUVIA50 MG ORAL (19:08)
[2019-02-08] MEDS ORDERED: SYNTHROID88 MCG ORAL (19:08)
[2019-02-08] MEDS ORDERED: JANUVIA100 MG ORAL (19:08)
--- NOTE | 2019-02-08 19:08 | NUR ---
HAND-OFF: Report given to Anthony RN. Pt remains stable.
[2019-02-08] MEDS ORDERED: Erythromycin BOTH EYES (19:12)
--- NOTE | 2019-02-08 19:45 | NUR ---
NURSE NOTES: Still placed on NPO status until ST eval tomorrow. Will continue to monitor.
[2019-02-08 20:00] VITALS: BP 138/58
[2019-02-08] MEDS: Levemir Flexpen SUBQ SCH (20:27)
--- NOTE | 2019-02-08 20:30 | NUR ---
NURSE NOTES: Patient refusing cardiac care nurse placement. Whenever it is put pack, patient removes monitor. Explained risks and benefits but still takes it off. CN and monitoring tech aware. Will continue to monitor.
[2019-02-09] VITALS: BP 122/57
[2019-02-09] MEDS: Dexamethasone 4mg/ml vial IVP SCH ×5 (00:28→23:26)
--- NOTE | 2019-02-09 00:30 | NUR ---
NURSE NOTES: Patient still removes cardiac cath rn when put on. Explained risks and benefits but still refused.
--- NOTE | 2019-02-09 02:15 | Progress Note ---
DATE: 02/08/2019 CARDIOLOGY PROGRESS NOTE SUBJECTIVE: The patient developed atrial fibrillation today. Yesterday, she had pauses with first-degree AV block. All episodes were asymptomatic. Blood pressure has stabilized. OBJECTIVE: VITAL SIGNS: Blood pressure 117/68, heart rate 60 to 75 respiratory rate 17, and afebrile. LUNGS: Clear. CARDIAC: Irregularly irregular. Normal S1, S2. A 1/6 systolic murmur at apex. ABDOMEN: Soft. EXTREMITIES: No edema. DIAGNOSTIC DATA: Echocardiogram was reviewed. Ejection fraction normal with mild degenerative valve disease. CAT scan of the brain revealed brain tumor with some edema. IMPRESSION: 1. Paroxysmal atrial fibrillation. 2. Conduction system disease of the heart. 3. Sinus node disease. 4. CVA with left-sided weakness. 5. Brain tumor with edema and prior history of craniotomy. 6. Hypertensive heart disease. 7. Type 2 diabetes mellitus. 8. Hypothyroidism on replacement therapy. PLAN: 1. No anticoagulation due to increased risk of bleeding. 2. Continue to avoid any drugs with negative chronotropic potential. 3. Titrate antihypertensives. 4. Antiseizure therapy. 5. Maintenance dose of thyroid replacement. Jimmie Cosby M.D. DR: YESSICA JOB#: [id number] CC:
[2019-02-09] MEDS: D5NS 1,000 ML IV SCH ×2 (02:51→19:13)
--- NOTE | 2019-02-09 03:21 | NUR ---
NURSE NOTES: Patient asleep with no S/S of distress at this time. Will continue to monitor.
[2019-02-09 04:00] VITALS: BP 121/59
--- NOTE | 2019-02-09 04:38 | NUR ---
NURSE NOTES: Patient still removes appeals rn when put on. Explained risks and benefits but still refused.
[2019-02-09] MEDS: sitaGLIPtin 50mg tab ORAL SCH (05:33)
[2019-02-09] MEDS: Repaglinide 1mg tab ORAL SCH ×3 (05:34→16:49)
[2019-02-09] MEDS: NovoLOG Insulin Flexpen SUBQ SCH ×5 (07:02→20:07)
--- NOTE | 2019-02-09 07:38 | NUR ---
HAND-OFF: Report given to Monroe Golden RN. Patient in bed with no S/S of distress noted at this time. Endorsed plan of care.
--- NOTE | 2019-02-09 07:59 | General Progress Note ---
Assessment/Plan Problem List: (1) Brain tumor ICD Codes: D49.6 - Neoplasm of unspecified behavior of brain SNOMED: 137615312 (2) Episode of generalized weakness ICD Codes: R53.1 - Weakness SNOMED: 24600295 (3) Brain mass ICD Codes: G93.9 - Disorder of brain, unspecified SNOMED: 475568193 (4) UTI (lower urinary tract infection) ICD Codes: N39.0 - Urinary tract infection, site not specified SNOMED: 2850278 (5) Sepsis ICD Codes: A41.9 - Sepsis, unspecified organism SNOMED: 61435528 Qualifiers: Qualified Codes: A41.9 - Sepsis, unspecified organism (6) Seizure ICD Codes: R56.9 - Unspecified convulsions SNOMED: 15177024 Status: stable Assessment/Plan: cont sz rx steroids swallow eval ivf monitor bs abx per id d/w son. wants to transfer pt to [facility](where pts PMD) Subjective ROS Limited/Unobtainable: No Constitutional: Reports: malaise, weakness HEENT: Reports: no symptoms Cardiovascular: Reports: no symptoms Respiratory: Reports: no symptoms Gastrointestinal/Abdominal: Reports: difficulty swallowing Genitourinary: Reports: no symptoms Neurologic/Psychiatric: Reports: no symptoms Endocrine: Reports: no symptoms Hematologic/Lymphatic: Reports: no symptoms Allergies: Coded Allergies: No Known Allergies (Unverified , 01/20/15) All Systems: reviewed and negative except above Subjective no events. no szs. more alert. responds to simple questions/commands. Objective Last 24 Hour Vital Signs Date Time Temp Pulse Resp B/P (MAP) Pulse Ox O2 Delivery O2 Flow Rate FiO2 02/09/19 04:00 97.6 59 18 121/59 (79) 99 02/09/19 00:00 97.7 58 19 122/57 (78) 98 02/08/19 21:00 Room Air 02/08/19 20:00 97.5 64 19 138/58 (84) 98 02/08/19 16:00 54 02/08/19 16:00 97.0 55 22 134/63 (86) 98 02/08/19 12:00 70 02/08/19 12:00 97.0 76 21 118/59 (78) 97 02/08/19 09:00 Room Air 02/08/19 08:43 117/68 02/08/19 08:00 71 Intake and Output 02/08/19 02/09/19 18:59 06:59 Output Total 800 ml 700 ml Balance -800 ml -700 ml Output Urine Total 800 ml 700 ml # Bowel Movements 1 Height (Feet): 5 Height (Inches): 3.00 Weight (Pounds): 145 General Appearance: WD/WN, alert, confused Neck: supple Cardiovascular: normal peripheral pulses, normal rate, regular rhythm Respiratory/Chest: chest wall non-tender, lungs clear, normal breath sounds, no respiratory distress Abdomen: normal bowel sounds, non tender, soft, no organomegaly Edema: no edema noted Arm (L), no edema noted Arm (R), no edema noted Leg (L), no edema noted Leg (R), no edema noted Pedal (L), no edema noted Pedal (R), no edema noted Generalized Oh Armstrong MD Feb 09, 2019 07:59
[2019-02-09 08:00] VITALS: BP 130/46
[2019-02-09 08:37] LABS: BASOPHILS % (AUTO) 0.5 % (0.0-2.0); HEMATOCRIT 35.3 % (37.0-47.0); LYMPHOCYTES % (AUTO) 22.4 % (20.0-45.0); MEAN CORPUSCULAR VOLUME 87 FL (80-99); MONOCYTES % (AUTO) 3.1 % (1.0-10.0); NEUTROPHILS % (AUTO) 73.9 % (45.0-75.0); PLATELET COUNT 189 K/UL (150-450); RED BLOOD COUNT 4.07 M/UL (4.20-5.40); RED CELL DISTRIBUTION WIDTH 12.3 % (11.6-14.8); WHITE BLOOD COUNT 5.9 K/UL (4.8-10.8)
[2019-02-09 08:57] LABS: ALANINE AMINOTRANSFERASE 26 U/L (12-78); ALBUMIN 3.1 G/DL (3.4-5.0); ALBUMIN/GLOBULIN RATIO 1.1 (1.0-2.7); ALKALINE PHOSPHATASE 67 U/L (46-116); ANION GAP 12 mmol/L (5-15); ASPARTATE AMINO TRANSFERASE 34 U/L (15-37); BILIRUBIN,TOTAL 0.2 MG/DL (0.2-1.0); BLOOD UREA NITROGEN 10 mg/dL (7-18); CALCIUM 9.9 MG/DL (8.5-10.1); CARBON DIOXIDE 26 MMOL/L (21-32); CHLORIDE 107 MMOL/L (98-107); CREATININE 0.6 MG/DL (0.55-1.30); POTASSIUM 3.3 MMOL/L (3.5-5.1); SODIUM 144 MMOL/L (136-145)
[2019-02-09] MEDS: metFORMIN 500mg tab ORAL SCH ×3 (09:00→18:00)
[2019-02-09] MEDS: Ascorbic Acid 500mg tab ORAL SCH (09:00)
[2019-02-09] MEDS: DULoxetine 30mg cap ORAL SCH (09:00)
[2019-02-09] MEDS: Losartan 50mg tab ORAL SCH (09:00)
[2019-02-09] MEDS: Docusate 100mg cap ORAL SCH ×2 (09:00→18:00)
[2019-02-09] MEDS: Lyrica 50mg cap ORAL SCH ×3 (09:00→18:00)
--- NOTE | 2019-02-09 10:44 | NUR ---
ST NOTE: BEDSIDE SWALLOW EVAL RECEIVED BEDSIDE SWALLOW EVAL ORDER CHART REVIEWED PRIOR THE EVALUATION PT IS A 88-YEAR-OLD FEMALE WHO WAS ADMITTED DUE TO SEIZURE AND ALTERED MENTAL STATUS. DYSPHAGIA RISK FACTORS: H/O CVA W/L-SIDED HEMIPARESIS, BRAIN TUMOR, H/O MENINGIOMA, CHRONIC A-FIB, CRANIOTOMY (2011), DM, H/O ACUTE RESP FAILURE. PLOF: PT RESIDES AT [facility]. (RECENTLY DISCHARGED FROM [facility]) PER CHART, PT WAS ON REGULAR WITH THIN LIQUIDS. NO POLST WAS NOTED IN THE CHART. CURRENT STATUS: PT SEEN AT BEDSIDE. ALERT, COOPERATIVE, NOT ABLE TO FOLLOW DIRECTIONS, CONFUSED. GIVEN PO TRIALS: NECTAR THICK(TSP) AND PUREE(TSP) INITIAL IMPRESSION: PT HAS UPPER AND LOWER DENTURES. MILDLY INCREASED ORAL TRANSIT TIME (4 SECONDS) UNTIL PT INITIATED PHARYNGEAL SWALLOW, MILDLY REDUCED LARYNGEAL ELEVATION, NO OVERT S/S OF ASPIRATION. DUE TO PT HAS H/O CVA, NEW ONSET OF SEIZURE AND BRAIN TUMOR, PT HAS (HIGH) RISK FOR ASPIRATION. RECOMMENDATIONS: 1. CONSERVATIVELY, MODIFIED BARIUM SWALLOW STUDY IS RECOMMENDED PRIOR PO DIET. 2. FOR QUALITY OF LIFE, SLOWLY INITIATE LIQUIFIED PUREED, LIKE NECTAR THICK SOUP CONSISTENCY WITH NECTAR THICK LIQUIDS 3. STRICT ASPIRATION PRECAUTIONS WITH 1TO1 FEEDING 4. MODIFIED BARIUM SWALLOW STUDY 5. SKILLED ST SERVICE TO FOLLOW UP. D/W RNKEVIN AND THE STAFF POSTED ASPIRATION PRECAUTIONS SIGN.
[2019-02-09] MEDS ORDERED: LORazepam Inj 2mg/ml 1ml IV SCH (10:50)
[2019-02-09] MEDS: levETIRAcetam 500mg/NS100ml 100 ML IVPB SCH ×2 (11:00→20:53)
[2019-02-09] MEDS ORDERED: Gadavist 7.5mMol/7.5ml vial IV PRN (11:00)
[2019-02-09 12:00] VITALS: BP 136/70
--- NOTE | 2019-02-09 14:59 | NUR ---
MRI BRAIN W/O AND WITH CONTRAST COMPLETED.
--- NOTE | 2019-02-09 15:23 | NUR ---
CASE MANAGEMENT:REVIEW 88YR OLD FEMALE BIBA FROM [facility] CC: WITNESSED SEIZURE SI: SEIZURE. AMS SEPSIS. PNA. BRAIN MASS 98.7 79 18 138/68 100% ON RA GLUCOSE+141 AST+38 IS: IV KEPPRA URINE CX CT HEAD BLOOD CX CHEST XRAY : TO TELEMETRY PLAN: SEIZURE PRECAUTION NEURO CHECKS Q4
[2019-02-09 16:00] VITALS: BP 126/57
[2019-02-09] MEDS: Ertapenem 1gm in NS 55ml IVPB SCH (16:49)
[2019-02-09] MEDS: Pancrelipase Dr Cap ORAL SCH (18:00)
--- NOTE | 2019-02-09 18:32 | Diagnostic Imaging Report ---
Indication: Seizures, abnormal recent head CT Technique: sagittal T1 fast spin echo, axial T1 and T2 FLAIR PROPELLER, axial T2 FS PROPELLER, T2* GRE, axial diffusion weighted images, post contrast axial and coronal T1 FLAIR PROPELLER images. ADC and exponential ADC maps generated Comparison: Reference made to head CTs of 02/07/2019 and 01/22/2015. Findings: There is a large mass in the posterior parasagittal high parietal region. This measures 6 cm AP by 3.9 cm transverse by 4.8 cm craniocaudad. There is considerable edema of the occipital, temporal, parietal, and posterior frontal deep white matter. Mass effect mostly manifests as attenuation of the adjacent CSF spaces. There is approximately 4 mm of [id number]-er-[id number] midline shift. The basilar cisterns are open. Lesion is slightly hyperintense to gomez matter on the T2-weighted images, isointense to white matter on the T2 FLAIR, slightly hypointense to gomez matter on the T1-weighted images.. Lesion and intensely and fairly homogeneously. Lesion is probably although not definitively extra-axial. There is also a small separate lesion along the superior sagittal sinus which demonstrates similar signal characteristics, measures 13 mm long axis dimension. There is also generalized thickening and enhancement of the falx, with some extension of the meningeal thickening into the lateral dura on both sides of the falx. Parafalcine epidural components appear, however, to be separate from the main lesion. This area is subjacent to a craniotomy defect which is better appreciated on the prior CT scans. The lesions demonstrate restricted diffusion. Some abnormal signal in the posterior right temporal and occipital lobes is more suggestive of cystic encephalomalacia than of acute vasogenic edema and there is an addition some cortical encephalomalacia in this area There is an extra-axial mass in the left posterior frontal region which demonstrates intense susceptibility artifact, indicative of heavy calcification demonstrated on recent CT scans. Another similar 11 mm lesion is seen in the right frontal region. These are hypointense on the spin echo sequences, and has slightly on the postcontrast images. No other foci of restricted diffusion to suggest acute infarct. No acute hemorrhage. Old lacunar infarct is seen in the left parietal deep white matter. Visualized orbits and sinuses are unremarkable. Vascular flow voids are preserved. Impression: 6 x 3.9 x 4.8 cm mass in the parasagittal right posterior parietal region as described. Associated edema and mass effect as described. Quite possibly recurrent tumor, given location deep to a prior craniotomy. Most likely a meningioma, particularly in view of the stated clinical history of such. Old ossified left posterior frontal and right anterior frontal region meningiomas, also demonstrated on prior CT scans Some of the abnormal signal in the left posterior temporal and occipital lobe is more suggestive of chronic encephalomalacia than acute vasogenic edema. Age-related volume loss Old right parietal deep white matter lacunar infarct
[2019-02-09 20:00] VITALS: BP 143/76
[2019-02-09] MEDS: Levemir Flexpen SUBQ SCH ×2 (20:05→20:07)
--- NOTE | 2019-02-09 20:14 | NUR ---
NURSE NOTES: RECEIVED PATIENT FROM KEVIN TURNER. PATIENT ASLEEP, ON RA, NO SOB, NO S/SX OF DISTRESS. ON CARDIAC MONITORING PER PROTOCOL. IV ON R WRIST 20G INTACT, PATENT RUNNNING D5NS 70CC/HR. F/C INPLACE DRAINING URINE BY GRAVITY. SIDE RAILS PADDED FOR SEIZURE PRECAUTION. BED IN LOWEST POSITION, LOCKED, ALARMS ON. CALL LIGHT IN REACH. POTASSIUM NOTED 3.3, NOTIFIED DR GAITAN, RECEIVED ORDER FOR IV K. CARRIED OUT.
--- NOTE | 2019-02-09 20:16 | NUR ---
HAND-OFF: Report given to Gerber Dutta.
--- NOTE | 2019-02-09 22:16 | Neurology Progress Note ---
Interim History Interim History ROS Limited/Unobtainable: No Complaints: Seizure/ Weakness Events: No seizures recorded Interim History This visit was performed on February 08, [address] Dickson Fischer. Review of Systems Neuro Review of Systems No seizures, patient alert and oriented, eating and tolerating diet well. All Systems: reviewed and negative except above Objective Physical Exam Last Vital Signs Date Time Temp Pulse Resp B/P (MAP) Pulse Ox O2 Delivery O2 Flow Rate FiO2 02/09/19 21:00 Room Air 02/09/19 16:00 96 02/09/19 16:00 97.0 21 126/57 (80) 93 Laboratory Tests Test 02/09/19 08:20 White Blood Count 5.9 K/UL (4.8-10.8) Red Blood Count 4.07 M/UL (4.20-5.40) L Hemoglobin 12.0 G/DL (12.0-16.0) Hematocrit 35.3 % (37.0-47.0) L Mean Corpuscular Volume 87 FL (80-99) Mean Corpuscular Hemoglobin 29.5 PG (27.0-31.0) Mean Corpuscular Hemoglobin Concent 34.0 G/DL (32.0-36.0) Red Cell Distribution Width 12.3 % (11.6-14.8) Platelet Count 189 K/UL (150-450) Mean Platelet Volume 7.2 FL (6.5-10.1) Neutrophils (%) (Auto) 73.9 % (45.0-75.0) Lymphocytes (%) (Auto) 22.4 % (20.0-45.0) Monocytes (%) (Auto) 3.1 % (1.0-10.0) Eosinophils (%) (Auto) 0.0 % (0.0-3.0) Basophils (%) (Auto) 0.5 % (0.0-2.0) Sodium Level 144 MMOL/L (136-145) Potassium Level 3.3 MMOL/L (3.5-5.1) L Chloride Level 107 MMOL/L (98-107) Carbon Dioxide Level 26 MMOL/L (21-32) Anion Gap 12 mmol/L (5-15) Blood Urea Nitrogen 10 mg/dL (7-18) Creatinine 0.6 MG/DL (0.55-1.30) Estimat Glomerular Filtration Rate mL/min (>60) Glucose Level 247 MG/DL (74-106) H Calcium Level 9.9 MG/DL (8.5-10.1) Total Bilirubin 0.2 MG/DL (0.2-1.0) Aspartate Amino Transf (AST/SGOT) 34 U/L (15-37) Alanine Aminotransferase (ALT/SGPT) 26 U/L (12-78) Alkaline Phosphatase 67 U/L (46-116) Total Protein 6.0 G/DL (6.4-8.2) L Albumin 3.1 G/DL (3.4-5.0) L Globulin 2.9 g/dL Albumin/Globulin Ratio 1.1 (1.0-2.7) General: well developed, well nourished Head: normocophalic Neck: no rigidity EENT: benign Neurologic Exam Mental Status: awake, alert, oriented x4, normal cognition, good mathematical skills, normal recent memory, normal remote memory, preserved visuospatial function Speech: normal speech, no dysarthia Language: normal language, no aphasia Cranial Nerve II: fundus normal, visual perrin, no papilledema Cranial Nerves III, IV, : PERRLA, EOMI, pupils Cranial Nerve V: normal facial sensations, temporales function normal, masseters function normal, pterygoids function normal Cranial Nerve VII: normal facial expressions Cranial Nerve VIII: normal hearing, no nystagmus Cranial Nerve IX: normal palate elevation, gag response Cranial Nerve X: no voice hoarseness Cranial Nerve XI: SCM symmetric, trapezii function normal Cranial Nerve XII: no tongue atrophy/fasciculations Motor System: normal muscle tone, no involuntary movement, no muscle wasting Sensory: normal pinprick, normal light touch, normal position sense, normal graphesthesia Coordination: normal finger to nose bilaterally, normal heel to landeros bilaterally, negative Romberg test Deep Tendon Reflexes: 2+ bicep (L), 2+ bicep (R), 2+ tricep (L), 2+ tricep (R) , 2+ brachioradialis (L), 2+ brachioradialis (R), 2+ knee (L), 2+ knee (R), 2+ ankle (L), 2+ ankle (R) Stance: normal Objective Patient has left hemiparesis from prior tumor resection- left face/arm/leg Impression/Recommendations Problems: (1) Limited mobility (2) Pneumonia (3) UTI (lower urinary tract infection) (4) Sepsis (5) Seizure (6) Episode of generalized weakness (7) Encephalopathy due to metabolic factor or toxin (8) Lactic acidosis (9) History of meningioma of the brain (10) Brain mass Status: stable Diagnostic Impression Q4 Hour Neuro Obs Keppra 500mg BID to continue IV EEG Routine - pending Dexamethasone 2mg TID should be sufficient- try downtitrating dexamethasone from 6mg QID IV - SBP<140 Maintain normoglycemia with ISS ST Evaluation Consider Enteral Nutrition? Seizure Precautions Fidelina Ortiz N.P. Feb 09, 2019 22:16
--- NOTE | 2019-02-09 22:17 | Neurology Progress Note ---
Interim History Interim History ROS Limited/Unobtainable: Yes Complaints: Seizure Events: MRI done Interim History This visit was performed on February 09, [address] Dickson Fischer. Review of Systems Neuro Review of Systems No seizures seen - MRI showing mass Objective Physical Exam Last Vital Signs Date Time Temp Pulse Resp B/P (MAP) Pulse Ox O2 Delivery O2 Flow Rate FiO2 02/09/19 21:00 Room Air 02/09/19 16:00 96 02/09/19 16:00 97.0 21 126/57 (80) 93 Laboratory Tests Test 02/09/19 08:20 White Blood Count 5.9 K/UL (4.8-10.8) Red Blood Count 4.07 M/UL (4.20-5.40) L Hemoglobin 12.0 G/DL (12.0-16.0) Hematocrit 35.3 % (37.0-47.0) L Mean Corpuscular Volume 87 FL (80-99) Mean Corpuscular Hemoglobin 29.5 PG (27.0-31.0) Mean Corpuscular Hemoglobin Concent 34.0 G/DL (32.0-36.0) Red Cell Distribution Width 12.3 % (11.6-14.8) Platelet Count 189 K/UL (150-450) Mean Platelet Volume 7.2 FL (6.5-10.1) Neutrophils (%) (Auto) 73.9 % (45.0-75.0) Lymphocytes (%) (Auto) 22.4 % (20.0-45.0) Monocytes (%) (Auto) 3.1 % (1.0-10.0) Eosinophils (%) (Auto) 0.0 % (0.0-3.0) Basophils (%) (Auto) 0.5 % (0.0-2.0) Sodium Level 144 MMOL/L (136-145) Potassium Level 3.3 MMOL/L (3.5-5.1) L Chloride Level 107 MMOL/L (98-107) Carbon Dioxide Level 26 MMOL/L (21-32) Anion Gap 12 mmol/L (5-15) Blood Urea Nitrogen 10 mg/dL (7-18) Creatinine 0.6 MG/DL (0.55-1.30) Estimat Glomerular Filtration Rate mL/min (>60) Glucose Level 247 MG/DL (74-106) H Calcium Level 9.9 MG/DL (8.5-10.1) Total Bilirubin 0.2 MG/DL (0.2-1.0) Aspartate Amino Transf (AST/SGOT) 34 U/L (15-37) Alanine Aminotransferase (ALT/SGPT) 26 U/L (12-78) Alkaline Phosphatase 67 U/L (46-116) Total Protein 6.0 G/DL (6.4-8.2) L Albumin 3.1 G/DL (3.4-5.0) L Globulin 2.9 g/dL Albumin/Globulin Ratio 1.1 (1.0-2.7) Neurologic Exam Mental Status: awake, alert, oriented x4, normal cognition, good mathematical skills, normal recent memory, normal remote memory, preserved visuospatial function Speech: normal speech, no dysarthia Language: normal language, no aphasia Cranial Nerve II: fundus normal, visual perrin, no papilledema Cranial Nerves III, IV, : PERRLA, EOMI, pupils Cranial Nerve V: normal facial sensations, temporales function normal, masseters function normal, pterygoids function normal Cranial Nerve VII: other - Left facial weakness and hemiparesis at baseline and on exam. Cranial Nerve VIII: normal hearing, no nystagmus Cranial Nerve IX: normal palate elevation, gag response Cranial Nerve X: no voice hoarseness Cranial Nerve XI: SCM symmetric, trapezii function normal Cranial Nerve XII: tongue midline, no tongue atrophy/fasciculations Motor System: normal muscle tone, no involuntary movement, no muscle wasting Sensory: normal pinprick, normal light touch, normal position sense, normal graphesthesia Coordination: normal finger to nose bilaterally, normal heel to landeros bilaterally, negative Romberg test Stance: normal Gait: stable, normal regular, heel + toe gait Imaging [facility] [address] [place] [address] [phone], fax [phone] Anthony Monroe M.D. Child Neurologist Patient : PAOLA LEON Referring Physician: Fidelina Ortiz N.P. ID Number: [id number] Service Date: 02/09/19 : 1930 Report Date: 02/09/19 Gender: F Accession No.: [id number] Location: 2E Procedure: MRI Brain w/wo Contrast Indication: Seizures, abnormal recent head CT Technique: sagittal T1 fast spin echo, axial T1 and T2 FLAIR PROPELLER, axial T2 FS PROPELLER, T2* GRE, axial diffusion weighted images, post contrast axial and coronal T1 FLAIR PROPELLER images. ADC and exponential ADC maps generated Comparison: Reference made to head CTs of 02/07/2019 and 01/22/2015. Findings: There is a large mass in the posterior parasagittal high parietal region. This measures 6 cm AP by 3.9 cm transverse by 4.8 cm craniocaudad. There is considerable edema of the occipital, temporal, parietal, and posterior frontal deep white matter. Mass effect mostly manifests as attenuation of the adjacent CSF spaces. There is approximately 4 mm of [id number]-eh-[id number] midline shift. The basilar cisterns are open. Lesion is slightly hyperintense to gomez matter on the T2-weighted images, isointense to white matter on the T2 FLAIR, slightly hypointense to gomez matter on the T1-weighted images.. Lesion and intensely and fairly homogeneously. Lesion is probably although not definitively extra-axial. There is also a small separate lesion along the superior sagittal sinus which demonstrates similar signal characteristics, measures 13 mm long axis dimension. There is also generalized thickening and enhancement of the falx, with some extension of the meningeal thickening into the lateral dura on both sides of the falx. Parafalcine epidural components appear, however, to be separate from the main lesion. This area is subjacent to a craniotomy defect which is better appreciated on the prior CT scans. The lesions demonstrate restricted diffusion. Some abnormal signal in the posterior right temporal and occipital lobes is more suggestive of cystic encephalomalacia than of acute vasogenic edema and there is an addition some cortical encephalomalacia in this area There is an extra-axial mass in the left posterior frontal region which demonstrates intense susceptibility artifact, indicative of heavy calcification demonstrated on recent CT scans. Another similar 11 mm lesion is seen in the right frontal region. These are hypointense on the spin echo sequences, and has slightly on the postcontrast images. No other foci of restricted diffusion to suggest acute infarct. No acute hemorrhage. Old lacunar infarct is seen in the left parietal deep white matter. Visualized orbits and sinuses are unremarkable. Vascular flow voids are preserved. Impression: 6 x 3.9 x 4.8 cm mass in the parasagittal right posterior parietal region as described. Associated edema and mass effect as described. Quite possibly recurrent tumor, given location deep to a prior craniotomy. Most likely a meningioma, particularly in view of the stated clinical history of such. Old ossified left posterior frontal and right anterior frontal region meningiomas, also demonstrated on prior CT scans Some of the abnormal signal in the left posterior temporal and occipital lobe is more suggestive of chronic encephalomalacia than acute vasogenic edema. Age-related volume loss Old right parietal deep white matter lacunar infarct Dictated By: Juve Hill MD Electronically Signed By: Juve Hill MD Signed Date/Time 02/09/19 [id number] CC: Fidelina Ortiz N.P.; Oh Armstrong MD Impression/Recommendations Problems: (1) Limited mobility (2) Pneumonia (3) UTI (lower urinary tract infection) (4) Sepsis (5) Seizure (6) Episode of generalized weakness (7) Encephalopathy due to metabolic factor or toxin (8) Lactic acidosis (9) History of meningioma of the brain (10) Brain mass (11) Sepsis Status: stable Recommendations Start Dexamethasone 2mg BID for Cerebral Edema SBP<140 Continue Q4 Neuro Obs EEG Pending Continue ABx as per ID Maintain Normothermia Maintain normoglycemia with ISS Neurosurgical consultation + Heme Onc COnsultation regarding medical / surgical treatment options. Na 135-110 Fidelina Ortiz N.P. Feb 09, 2019 22:17
--- NOTE | 2019-02-09 22:45 | Progress Note ---
DATE: 02/09/2019 CARDIOLOGY PROGRESS NOTE SUBJECTIVE: The patient is awake, alert. No seizure activity. Monitored rhythm, sinus with paroxysms of atrial fibrillation. She does have episodes of bradycardia with heart rates in the high 30s, all asymptomatic. OBJECTIVE: VITAL SIGNS: Blood pressure 121/59, pulse 59, respiratory 18, afebrile. LUNGS: Bilateral breath sounds. HEART: Regular rhythm and rate. Normal S1, S2. ABDOMEN: Soft. EXTREMITIES: No edema. IMPRESSION: 1. Brain tumor with edema. 2. Seizure disorder. 3. Paroxysmal atrial fibrillation. 4. 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 5. Hypertensive heart disease. PLAN: 1. She is not a candidate for anticoagulation. 2. Seizure precautions. 3. Continue steroid. 4. No medications at this time with negative chronotropic potential and consideration for permanent pacemaker in the future. 5. The patient is more ambulatory. Family members want to defer to primary care physician at [facility]. Jimmie Cosby M.D. DR: ROGELIO JOB#: [id number] CC:
[2019-02-10] VITALS: BP 142/56
[2019-02-10 04:00] VITALS: BP 109/59
[2019-02-10] MEDS: sitaGLIPtin 50mg tab ORAL SCH (05:03)
[2019-02-10] MEDS: Dexamethasone 4mg/ml vial IVP SCH ×3 (05:26→17:10)
[2019-02-10] MEDS: NovoLOG Insulin Flexpen SUBQ SCH ×4 (05:53→21:51)
[2019-02-10] MEDS: D5NS 1,000 ML IV SCH (06:40)
--- NOTE | 2019-02-10 07:12 | NUR ---
HAND-OFF: Report given to Flor TURNER.
--- NOTE | 2019-02-10 07:34 | NUR ---
NURSE NOTES: Received report from YUE Dutta. Pt is sleeping in bed. No distress noted. Bed is in lowest position, side rails up X2, and call light is within reach. Will continue to monitor.
[2019-02-10 08:00] VITALS: BP 139/61
[2019-02-10] MEDS: Ascorbic Acid 500mg tab ORAL SCH (09:00)
[2019-02-10] MEDS: Lisinopril 10mg tab ORAL SCH (09:00)
[2019-02-10] MEDS: metFORMIN 500mg tab ORAL SCH ×3 (09:00→17:11)
[2019-02-10] MEDS: DULoxetine 30mg cap ORAL SCH (09:00)
[2019-02-10] MEDS: Pancrelipase Dr Cap ORAL SCH ×3 (09:00→17:11)
[2019-02-10] MEDS: Docusate 100mg cap ORAL SCH ×2 (09:00→17:11)
[2019-02-10] MEDS: Lyrica 50mg cap ORAL SCH ×3 (09:00→17:11)
--- NOTE | 2019-02-10 09:24 | General Progress Note ---
Assessment/Plan Problem List: (1) Brain tumor ICD Codes: D49.6 - Neoplasm of unspecified behavior of brain SNOMED: 732196829 (2) Episode of generalized weakness ICD Codes: R53.1 - Weakness SNOMED: 98793979 (3) Brain mass ICD Codes: G93.9 - Disorder of brain, unspecified SNOMED: 798253543 (4) UTI (lower urinary tract infection) ICD Codes: N39.0 - Urinary tract infection, site not specified SNOMED: 6969238 (5) Sepsis ICD Codes: A41.9 - Sepsis, unspecified organism SNOMED: 46905956 Qualifiers: Qualified Codes: A41.9 - Sepsis, unspecified organism (6) Seizure ICD Codes: R56.9 - Unspecified convulsions SNOMED: 27400683 Status: stable Assessment/Plan: cont sz rx steroids video swallow eeg- r/o subclinical seizures ivf monitor bs abx per id d/w son. wants to transfer pt to [facility](where pts PMD) Subjective ROS Limited/Unobtainable: No Constitutional: Reports: malaise, weakness HEENT: Reports: no symptoms Cardiovascular: Reports: no symptoms Respiratory: Reports: no symptoms Gastrointestinal/Abdominal: Reports: no symptoms Genitourinary: Reports: no symptoms Neurologic/Psychiatric: Reports: anxiety, pre-existing deficit, seizure Endocrine: Reports: no symptoms Hematologic/Lymphatic: Reports: no symptoms Allergies: Coded Allergies: No Known Allergies (Unverified , 01/20/15) All Systems: reviewed and negative except above Subjective no events. resting. no szs noted. w/o family- pt still more confused compared to baseline. Objective Last 24 Hour Vital Signs Date Time Temp Pulse Resp B/P (MAP) Pulse Ox O2 Delivery O2 Flow Rate FiO2 02/10/19 08:00 97.3 51 20 139/61 (87) 93 02/10/19 04:00 97.9 55 16 109/59 (76) 97 02/10/19 04:00 54 02/10/19 00:00 53 02/10/19 00:00 96.8 53 16 142/56 (84) 100 02/09/19 21:00 Room Air 02/09/19 20:00 37 02/09/19 20:00 97.2 55 20 143/76 (98) 98 02/09/19 16:00 96 02/09/19 16:00 97.0 52 21 126/57 (80) 93 02/09/19 12:00 40 02/09/19 12:00 97.5 58 21 136/70 (92) 95 Intake and Output 02/09/19 02/10/19 18:59 06:59 Output Total 600 ml 1100 ml Balance -600 ml -1100 ml Output Urine Total 600 ml 1100 ml Height (Feet): 5 Height (Inches): 3.00 Weight (Pounds): 145 General Appearance: WD/WN, alert, confused Neck: supple Cardiovascular: normal rate, regular rhythm Respiratory/Chest: chest wall non-tender, lungs clear, normal breath sounds, no respiratory distress Abdomen: normal bowel sounds, non tender, soft, no organomegaly Edema: no edema noted Arm (L), no edema noted Arm (R), no edema noted Leg (L), no edema noted Leg (R), no edema noted Pedal (L), no edema noted Pedal (R), no edema noted Generalized Neurologic: alert, responsive, disoriented Oh Armstrong MD Feb 10, 2019 09:24
--- NOTE | 2019-02-10 09:38 | NUR ---
NURSE NOTES: Received call from Alejandra BRAVO for Dr. Nazario at [facility]. She wants our case management department to start the process of transferring the patient to them. The admitting doctor for [facility] would be Dr. Xavier Hamilton. Left message for Paulette with all the information. Alejandra BRAVO cell: [phone] [facility]: [phone]
[2019-02-10 10:03] LABS: BASOPHILS % (AUTO) 0.5 % (0.0-2.0); HEMATOCRIT 40.1 % (37.0-47.0); HEMOGLOBIN 13.7 G/DL (12.0-16.0); LYMPHOCYTES % (AUTO) 26.8 % (20.0-45.0); MEAN CORPUSCULAR VOLUME 88 FL (80-99); MONOCYTES % (AUTO) 3.4 % (1.0-10.0); NEUTROPHILS % (AUTO) 69.3 % (45.0-75.0); PLATELET COUNT 196 K/UL (150-450); RED BLOOD COUNT 4.57 M/UL (4.20-5.40); RED CELL DISTRIBUTION WIDTH 12.2 % (11.6-14.8); WHITE BLOOD COUNT 4.3 K/UL (4.8-10.8)
[2019-02-10] MEDS: levETIRAcetam 500mg/NS100ml 100 ML IVPB SCH ×2 (10:14→21:50)
[2019-02-10 10:17] LABS: ALANINE AMINOTRANSFERASE 25 U/L (12-78); ALBUMIN 3.1 G/DL (3.4-5.0); ALBUMIN/GLOBULIN RATIO 1.1 (1.0-2.7); ALKALINE PHOSPHATASE 65 U/L (46-116); ANION GAP 12 mmol/L (5-15); ASPARTATE AMINO TRANSFERASE 38 U/L (15-37); BILIRUBIN,TOTAL 0.3 MG/DL (0.2-1.0); BLOOD UREA NITROGEN 10 mg/dL (7-18); CALCIUM 9.2 MG/DL (8.5-10.1); CARBON DIOXIDE 25 MMOL/L (21-32); CHLORIDE 104 MMOL/L (98-107); CREATININE 0.6 MG/DL (0.55-1.30); POTASSIUM 3.6 MMOL/L (3.5-5.1); SODIUM 141 MMOL/L (136-145)
--- NOTE | 2019-02-10 10:39 | Infectious Diseases Prog Note ---
Assessment/Plan Assessment/Plan antibiotics : ertapenem A 1. fungal UTI 2. meningioma 3. seizures 4. diabetes mellitus 5. hypertension P 1. start fluconazole 2. d/c ertapenem 3. will follow up cultures Subjective ROS Limited/Unobtainable: Yes Allergies: Coded Allergies: No Known Allergies (Unverified , 01/20/15) Objective Vital Signs Last 24 Hour Vital Signs Date Time Temp Pulse Resp B/P (MAP) Pulse Ox O2 Delivery O2 Flow Rate FiO2 02/10/19 08:00 97.3 51 20 139/61 (87) 93 02/10/19 08:00 50 02/10/19 04:00 97.9 55 16 109/59 (76) 97 02/10/19 04:00 54 02/10/19 00:00 53 02/10/19 00:00 96.8 53 16 142/56 (84) 100 02/09/19 21:00 Room Air 02/09/19 20:00 37 02/09/19 20:00 97.2 55 20 143/76 (98) 98 02/09/19 16:00 96 02/09/19 16:00 97.0 52 21 126/57 (80) 93 02/09/19 12:00 40 02/09/19 12:00 97.5 58 21 136/70 (92) 95 Height (Feet): 5 Height (Inches): 3.00 Weight (Pounds): 145 Respiratory/Chest: lungs clear Cardiovascular: normal rate, regular rhythm, no gallop/murmur Abdomen: soft, non tender Extremities: no edema Laboratory Tests Test 02/10/19 09:45 White Blood Count 4.3 K/UL (4.8-10.8) L Red Blood Count 4.57 M/UL (4.20-5.40) Hemoglobin 13.7 G/DL (12.0-16.0) Hematocrit 40.1 % (37.0-47.0) Mean Corpuscular Volume 88 FL (80-99) Mean Corpuscular Hemoglobin 30.0 PG (27.0-31.0) Mean Corpuscular Hemoglobin Concent 34.2 G/DL (32.0-36.0) Red Cell Distribution Width 12.2 % (11.6-14.8) Platelet Count 196 K/UL (150-450) Mean Platelet Volume 7.7 FL (6.5-10.1) Neutrophils (%) (Auto) 69.3 % (45.0-75.0) Lymphocytes (%) (Auto) 26.8 % (20.0-45.0) Monocytes (%) (Auto) 3.4 % (1.0-10.0) Eosinophils (%) (Auto) 0.0 % (0.0-3.0) Basophils (%) (Auto) 0.5 % (0.0-2.0) Sodium Level 141 MMOL/L (136-145) Potassium Level 3.6 MMOL/L (3.5-5.1) Chloride Level 104 MMOL/L (98-107) Carbon Dioxide Level 25 MMOL/L (21-32) Anion Gap 12 mmol/L (5-15) Blood Urea Nitrogen 10 mg/dL (7-18) Creatinine 0.6 MG/DL (0.55-1.30) Estimat Glomerular Filtration Rate mL/min (>60) Glucose Level 251 MG/DL (74-106) H Calcium Level 9.2 MG/DL (8.5-10.1) Total Bilirubin 0.3 MG/DL (0.2-1.0) Aspartate Amino Transf (AST/SGOT) 38 U/L (15-37) H Alanine Aminotransferase (ALT/SGPT) 25 U/L (12-78) Alkaline Phosphatase 65 U/L (46-116) Total Protein 6.0 G/DL (6.4-8.2) L Albumin 3.1 G/DL (3.4-5.0) L Globulin 2.9 g/dL Albumin/Globulin Ratio 1.1 (1.0-2.7) Current Medications Medications (Trade) Dose Ordered Sig/Stefano Route PRN Reason Start Time Stop Time Status Last Admin Dose Admin Acetaminophen (Tylenol) 500 mg Q6H PRN ORAL Mild Pain/Temp > 100.5 02/07/19 12:00 03/09/19 11:59 Acetaminophen/ Hydrocodone Bitart ([place] 5/325) 1 tab Q6H PRN ORAL pain 4-10 02/07/19 12:00 02/14/19 11:59 Amlodipine Besylate (Norvasc) 2.5 mg DAILY ORAL 02/10/19 09:00 03/12/19 08:59 Amylase/Lipase/ Protease (Zenpep) 1 ea TIPC ORAL 02/09/19 18:00 03/11/19 17:59 Ascorbic Acid (Vitamin C) 500 mg DAILY ORAL 02/08/19 09:00 03/10/19 08:59 Dexamethasone Sodium Phosphate (Decadron 4mg/ml vial) 4 mg Q6HR IVP 02/07/19 15:00 03/09/19 14:59 02/10/19 05:26 Dextrose (Dextrose 50%) 25 ml Q30M PRN IV Hypoglycemia 02/07/19 12:15 03/09/19 12:14 Dextrose (Dextrose 50%) 50 ml Q30M PRN IV Hypoglycemia 02/07/19 12:15 03/09/19 12:14 Dextrose/Sodium Chloride 1,000 ml @ 70 mls/hr [id number] IV 02/07/19 22:00 03/09/19 21:59 02/09/19 19:13 Docusate Sodium (Colace) 100 mg TWICE A DAY ORAL 02/07/19 18:00 03/09/19 17:59 Duloxetine HCl (Cymbalta) 30 mg DAILY ORAL 02/08/19 09:00 03/10/19 08:59 Ertapenem 1 gm/ Sodium Chloride 55 ml @ 110 mls/hr Q24H IVPB 02/07/19 15:00 02/12/19 14:59 02/09/19 16:49 Ferrous Sulfate (Feosol) 325 mg DAILY ORAL 02/08/19 09:00 03/10/19 08:59 Gadobutrol (Gadavist) 7.5 mmol NOW PRN IV Radiology Procedure 02/09/19 11:00 02/13/19 10:46 Insulin Aspart (NovoLOG) BEFORE MEALS AND HS SUBQ 02/07/19 16:30 03/09/19 16:29 02/10/19 05:53 Insulin Detemir (Levemir) 12 units BEDTIME SUBQ 02/07/19 21:00 03/09/19 20:59 02/08/19 20:27 Levetiracetam 100 ml @ 400 mls/hr Q12HR IVPB 02/07/19 21:00 03/09/19 20:59 02/10/19 10:14 Levothyroxine Sodium (Synthroid) 88 mcg DAILY@0630 ORAL 02/10/19 06:30 03/12/19 06:29 Lisinopril (Zestril) 10 mg DAILY ORAL 02/10/19 09:00 03/12/19 08:59 Metformin HCl (Glucophage) 500 mg TID ORAL 02/07/19 18:00 03/09/19 17:59 02/09/19 12:42 Mirtazapine (Remeron) 15 mg BEDTIME ORAL 02/07/19 21:00 03/09/19 20:59 Pregabalin (Lyrica) 50 mg THREE TIMES A DAY ORAL 02/07/19 18:00 03/09/19 17:59 02/09/19 12:43 Sitagliptin Phosphate (Januvia) 50 mg ACBREAKFAST ORAL 02/09/19 06:30 03/11/19 06:29 Teodoro Sue MD Feb 10, 2019 10:39
[2019-02-10] MEDS: Fluconazole 100mg tab ORAL SCH (12:37)
--- NOTE | 2019-02-10 14:21 | NUR ---
ST NOTE: MODIFIED BARIUM SWALLOW STUDY COMPLETED MODIFIED BARIUM SWALLOW STUDY PT ALERT, COOPERATIVE, LIMITED ABILITY TO FOLLOW SIMPLE DIRECTIONS, PT'S CAREGIVER PRESENTED. GIVEN PO TRIALS: THIN(TSPX2/MED CUP/MED CUP-SEQUENTIAL), NECTAR THICK(TSP/MED CUP-SEQUENTIAL), HONEY THICK(TSP) AND PUDDING(TSP), ATTEMPTED 1/2 CRACKER WITH 3CC PUDDING(PT HELD THE CRACKER AND DID NOT MASTICATE IT, REMOVED THE CRACKER AND PT SWALLOWED THE PUDDING). IMPRESSION: PT PRESENTS WITH MILD OROPHARYNGEAL DYSPHAGIA CHARACTERIZED BY MILDLY TO MODERATELY INCREASED ORAL TRANSIT TIME(3 TO 6 SECONDS) UNTIL PT INITIATED PHARYNGEAL SWALLOW WHEN BOLUS HEADED IN PYRIFORMS. NO SIGNIFICANT PENETRATION NOR ASPIRATION WITH ALL CONSISTENCY BUT DELAYED SWALLOW WAS NOTED. MILD TONGUE BASE AND VALLECULAR RESIDUE, ESPECIALLY WITH THIN LIQUID, WAS NOTED DUE TO REDUCED TONGUE BASE RETRACTION. PT HAS RISK FOR ASPIRATION IF PRECAUTIONS ARE NOT STRICTLY APPLIED. LIMITED SWALLOW TECHNIQUES WERE ABLE TO USE DUE TO PT IS COGNITIVELY IMPAIRED. PT BENEFITS FROM SWALLOW X 2 TIMES AND ALLOW TIME. RECOMMENDATIONS: 1. FOR QUALITY OF LIFE, SLOWLY INITIATE MOIST PUREE WITH THIN LIQUIDS DIET 2. STRICT ASPIRATION PRECAUTIONS WITH 1TO[address] SERVICE TO FOLLOW UP. D/W PT'S SON, CAREGIVER, RN AND INFORMED DR. ARNIE RUTLEDGE RE: RESULTS AND RECOMMENDATIONS. POSTED ASPIRATION PRECAUTIONS SIGN.
--- NOTE | 2019-02-10 15:17 | NUR ---
DISCHARGE PLANNING PATIENT HAS BEEN REFERRED TO [facility] T: [phone] F: [phone] SEVERAL MESSAGES LEFT FOR TEACHER INSTRUMENTAL AT [facility] WAITING FOR RETURN CALL
[2019-02-10 16:00] VITALS: BP 153/70
--- NOTE | 2019-02-10 16:15 | Electroencephalogram ---
DATE OF TRACIN02/09/2019 REQUESTING PHYSICIAN: Oh Armstrong M.D. READING PHYSICIAN: Sid Acuña M.D. HISTORY: This EEG was performed on an 88-year-old lady with a history of a brain tumor that was surgically removed with a right craniotomy and in addition multiple lesions involving the brain at this point in time. The patient was admitted with an altered mental state, a urinary tract infection and sepsis. The purpose of this EEG was to evaluate the patient for the degree and type of cerebral dysfunction and to exclude ongoing ictal or interictal phenomena as she continues to have an altered mental state. TECHNICAL NOTE: This EEG was performed on a [employer] Digital [employer] Unit with electrodes placed on the scalp according to the International 10-20 system. Bmtus-xm-xempe and stwch-kt-hrm montages were used. The EEG was technically satisfactory and was performed while the patient was in a stuporous state. OBSERVATIONS: In the reportedly stuporous state, the background activity consisted of 5-6 Hz theta with intermixed delta frequencies. Right frontocentroparietal polymorphic delta activity was also noted. Multiple episodes of sharp and wave and runs of rapid sharps lasting 10 to 50 seconds were seen emanating from the C4-T4 electrodes. No clinical manifestations were noted when the patient was having these abnormal discharges. IMPRESSION: This is an abnormal EEG characterized by: 1. Slowing of the background predominantly in the 5-6 Hz theta range with some intermixed delta frequencies. 2. Right frontocentroparietal polymorphic delta activity. 3. Multiple runs of electrographic discharges emanating from C4-T4 lasting 10 to 50 seconds at a time. COMMENT: This study is consistent with: 1. An encephalopathy of a moderate degree. 2. Focal right frontocentroparietal dysfunction. 3. Electrographic seizures emanating from the right centrotemporal region. Clinical correlation is recommended. Sid Acuña M.D., M.S.P.H. DR: KHADRA JOB#: [id number]
--- NOTE | 2019-02-10 16:19 | NUR ---
NURSE NOTES: left message for Dr. Armstrong regarding patients regular diet and fluids she is currently on. Asked if we could DC the fluids and change diet to [facility]. Will await call back.
--- NOTE | 2019-02-10 16:32 | NUR ---
DISCHARGE PLANNING THIS FAMILY COURT REGISTRAR RECEIVED MESSAGE FROM BUCK AT [facility] STATING THEY CAN ACCEPT THIS PATIENT TOMORROW TO THEIR FACILITY Addendum: 02/11/19 at 0647 by JC RASHID LVN LVN RECEIVED VMM FROM MELY SANTOS, T: [phone] STATING HE WOULD LIKE HIS MOTHER TRANSFERRED TO [facility] IN [place] REQUEST IS FOR HOSPITAL CHANGE NOT USP CHANGE FAMILY COURT REGISTRAR WILL RETURN SON'S CALL TODAY AT THE APPROPRIATE HOUR
--- NOTE | 2019-02-10 19:43 | NUR ---
HAND-OFF: Report given to Gerber Dutta.
--- NOTE | 2019-02-10 19:44 | NUR ---
NURSE NOTES: Received report from YUE Ray. Pt is resting in bed. In no acute distress. IV line intact and patents. Bed in lowest position, call light within reach. Will continue plan of care.
[2019-02-10 20:00] VITALS: BP 153/70
[2019-02-10] MEDS: Levemir Flexpen SUBQ SCH (21:51)
--- NOTE | 2019-02-10 23:57 | Neurology Progress Note ---
Interim History Interim History ROS Limited/Unobtainable: Yes - Secondary to primary language-Far Complaints: Seizure Events: Currently on 4mg QID Dex Interim History Patient is alert / eating well with no seizures. Objective Physical Exam Last Vital Signs Date Time Temp Pulse Resp B/P (MAP) Pulse Ox O2 Delivery O2 Flow Rate FiO2 02/10/19 21:00 Room Air 02/10/19 20:00 74 02/10/19 20:00 98.2 18 153/70 (97) 100 Laboratory Tests Test 02/10/19 09:45 White Blood Count 4.3 K/UL (4.8-10.8) L Red Blood Count 4.57 M/UL (4.20-5.40) Hemoglobin 13.7 G/DL (12.0-16.0) Hematocrit 40.1 % (37.0-47.0) Mean Corpuscular Volume 88 FL (80-99) Mean Corpuscular Hemoglobin 30.0 PG (27.0-31.0) Mean Corpuscular Hemoglobin Concent 34.2 G/DL (32.0-36.0) Red Cell Distribution Width 12.2 % (11.6-14.8) Platelet Count 196 K/UL (150-450) Mean Platelet Volume 7.7 FL (6.5-10.1) Neutrophils (%) (Auto) 69.3 % (45.0-75.0) Lymphocytes (%) (Auto) 26.8 % (20.0-45.0) Monocytes (%) (Auto) 3.4 % (1.0-10.0) Eosinophils (%) (Auto) 0.0 % (0.0-3.0) Basophils (%) (Auto) 0.5 % (0.0-2.0) Sodium Level 141 MMOL/L (136-145) Potassium Level 3.6 MMOL/L (3.5-5.1) Chloride Level 104 MMOL/L (98-107) Carbon Dioxide Level 25 MMOL/L (21-32) Anion Gap 12 mmol/L (5-15) Blood Urea Nitrogen 10 mg/dL (7-18) Creatinine 0.6 MG/DL (0.55-1.30) Estimat Glomerular Filtration Rate mL/min (>60) Glucose Level 251 MG/DL (74-106) H Calcium Level 9.2 MG/DL (8.5-10.1) Total Bilirubin 0.3 MG/DL (0.2-1.0) Aspartate Amino Transf (AST/SGOT) 38 U/L (15-37) H Alanine Aminotransferase (ALT/SGPT) 25 U/L (12-78) Alkaline Phosphatase 65 U/L (46-116) Total Protein 6.0 G/DL (6.4-8.2) L Albumin 3.1 G/DL (3.4-5.0) L Globulin 2.9 g/dL Albumin/Globulin Ratio 1.1 (1.0-2.7) Neurologic Exam Mental Status: awake, alert, oriented x4, normal cognition, good mathematical skills, normal recent memory, normal remote memory, preserved visuospatial function Speech: normal speech, no dysarthia Language: normal language, no aphasia Cranial Nerve II: fundus normal, visual perrin, no papilledema Cranial Nerves III, IV, : PERRLA, EOMI, pupils Cranial Nerve V: normal facial sensations, temporales function normal, masseters function normal, pterygoids function normal Cranial Nerve VII: normal facial expressions Cranial Nerve VIII: normal hearing, no nystagmus Cranial Nerve IX: normal palate elevation, gag response Cranial Nerve X: no voice hoarseness Cranial Nerve XI: SCM symmetric, trapezii function normal Cranial Nerve XII: tongue midline, no tongue atrophy/fasciculations Motor System: normal muscle tone, no involuntary movement, no muscle wasting, other Sensory: normal pinprick, normal light touch, normal position sense, normal graphesthesia Coordination: other Objective Patient with left facial weakness of left lower face and hemiparesis of left side at baseline and on exam. Imaging [facility] Medical Imaging [address] [place] [address] [phone], fax [phone] Anthony Monroe M.D. Electromyographic Technician Patient : PAOLA LEON Referring Physician: Fidelina Ortiz N.P. ID Number: [id number] Service Date: 02/09/19 : 1930 Report Date: 02/09/19 Gender: F Accession No.: [id number] Location: Procedure: MRI Brain w/wo Contrast Indication: Seizures, abnormal recent head CT Technique: sagittal T1 fast spin echo, axial T1 and T2 FLAIR PROPELLER, axial T2 FS PROPELLER, T2* GRE, axial diffusion weighted images, post contrast axial and coronal T1 FLAIR PROPELLER images. ADC and exponential ADC maps generated Comparison: Reference made to head CTs of 02/07/2019 and 01/22/2015. Findings: There is a large mass in the posterior parasagittal high parietal region. This measures 6 cm AP by 3.9 cm transverse by 4.8 cm craniocaudad. There is considerable edema of the occipital, temporal, parietal, and posterior frontal deep white matter. Mass effect mostly manifests as attenuation of the adjacent CSF spaces. There is approximately 4 mm of [id number]-vx-[id number] midline shift. The basilar cisterns are open. Lesion is slightly hyperintense to gomez matter on the T2-weighted images, isointense to white matter on the T2 FLAIR, slightly hypointense to gomez matter on the T1-weighted images.. Lesion and intensely and fairly homogeneously. Lesion is probably although not definitively extra-axial. There is also a small separate lesion along the superior sagittal sinus which demonstrates similar signal characteristics, measures 13 mm long axis dimension. There is also generalized thickening and enhancement of the falx, with some extension of the meningeal thickening into the lateral dura on both sides of the falx. Parafalcine epidural components appear, however, to be separate from the main lesion. This area is subjacent to a craniotomy defect which is better appreciated on the prior CT scans. The lesions demonstrate restricted diffusion. Some abnormal signal in the posterior right temporal and occipital lobes is more suggestive of cystic encephalomalacia than of acute vasogenic edema and there is an addition some cortical encephalomalacia in this area There is an extra-axial mass in the left posterior frontal region which demonstrates intense susceptibility artifact, indicative of heavy calcification demonstrated on recent CT scans. Another similar 11 mm lesion is seen in the right frontal region. These are hypointense on the spin echo sequences, and has slightly on the postcontrast images. No other foci of restricted diffusion to suggest acute infarct. No acute hemorrhage. Old lacunar infarct is seen in the left parietal deep white matter. Visualized orbits and sinuses are unremarkable. Vascular flow voids are preserved. Impression: 6 x 3.9 x 4.8 cm mass in the parasagittal right posterior parietal region as described. Associated edema and mass effect as described. Quite possibly recurrent tumor, given location deep to a prior craniotomy. Most likely a meningioma, particularly in view of the stated clinical history of such. Old ossified left posterior frontal and right anterior frontal region meningiomas, also demonstrated on prior CT scans Some of the abnormal signal in the left posterior temporal and occipital lobe is more suggestive of chronic encephalomalacia than acute vasogenic edema. Age-related volume loss Old right parietal deep white matter lacunar infarct Dictated By: Juve Hill MD Electronically Signed By: Juve Hlil MD Signed Date/Time 02/09/19 5420 CC: Fidelina Ortiz N.P.; Oh Armstrong MD [facility] Medical Imaging [address] [place] [address] [phone], fax [phone] Anthony Monroe M.D. Electromyographic Technician Patient : ADRIAN BURNETTE Referring Physician: Kehinde Leo MD ID Number: [id number] Service Date: 02/09/19 : 07/05/1949 Report Date: 02/09/19 Gender: M Accession No.: [id number] Location: Procedure: MRI Brain no Contrast Indication: Seizure, altered level consciousness Technique: sagittal T1 fast spin echo, axial T1 FLAIR, axial T2 FLAIR, axial T2 FS PROPELLER, axial T2* GRE, axial diffusion weighted images. ADC and exponential ADC maps generated Comparison: Head CT 02/08/2019 Findings: Large area of encephalomalacia is seen involving the right parietal lobe, posterior frontal lobe, and much of the temporal lobe. A few areas of cortex at the edge of the encephalomalacia demonstrate high diffusion signal and corresponding low intensity on the ADC map.. Minimal susceptibility artifact at the medial periphery of the area of encephalomalacia likely reflects old petechial microhemorrhage. No acute intracranial hemorrhage. No acute edema. Also demonstrated is encephalomalacia involving the right cerebellar hemisphere. There is generalized age-related enlargement of the ventricles and extra axial CSF spaces. There is periventricular deep white matter high T2 signal consistent with chronic microvascular ischemic change. No mass effect nor midline shift. The vascular flow voids are preserved.. There is a mucous retention cyst or polyp in the left maxillary sinus.. 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 Negative for acute intracranial bleed or mass effect Old right cerebellar hemispheric infarct, also previously reported Chronic age-related volume loss and periventricular deep white matter high T2 signal consistent with chronic periventricular deep white matter ischemic changes Dictated By: Juve Hill MD Electronically Signed By: Juve Hill MD Signed Date/Time 02/09/19 4438 CC: Kehinde Leo MD Impression/Recommendations Problems: (1) Limited mobility (2) Pneumonia (3) UTI (lower urinary tract infection) (4) Sepsis (5) Seizure (6) Episode of generalized weakness (7) Encephalopathy due to metabolic factor or toxin (8) Lactic acidosis (9) History of meningioma of the brain (10) Brain mass (11) Sepsis Status: stable Recommendations Consider decreased dose of dexamethasone as able. 4mg TID now rec'd SBP<140 Continue Q4 Neuro Obs EEG Pending Continue ABx as per ID Maintain Normothermia Maintain normoglycemia with ISS Neurosurgical consultation + Heme Onc COnsultation regarding medical / surgical treatment options. Na 135-145 Fidelina Ortiz N.P. Feb 10, 2019 23:57
[2019-02-11] VITALS: BP 129/70
[2019-02-11] MEDS: Dexamethasone 4mg/ml vial IVP SCH ×4 (00:52→17:20)
[2019-02-11 04:00] VITALS: BP 119/66
[2019-02-11] MEDS: sitaGLIPtin 50mg tab ORAL SCH (06:25)
[2019-02-11] MEDS: NovoLOG Insulin Flexpen SUBQ SCH ×4 (06:30→20:19)
--- NOTE | 2019-02-11 06:47 | NUR ---
TRANSFER REQUEST RECEIVED VMM FROM SON, MELY, T: [phone] STATING HE WOULD LIKE HIS MOTHER TRANSFERRED TO [facility] IN [place] REQUEST IS FOR HOSPITAL CHANGE NOT HALF-WAY CHANGE PLATE DRYING MACHINE TENDER WILL RETURN SON'S CALL TODAY AT THE APPROPRIATE HOUR TO DISCUSS THE NAME OF ACCEPTING PHYSICIAN. [facility] T: [phone]
[2019-02-11 07:33] LABS: BASOPHILS % (AUTO) 0.7 % (0.0-2.0); HEMATOCRIT 39.6 % (37.0-47.0); HEMOGLOBIN 13.7 G/DL (12.0-16.0); LYMPHOCYTES % (AUTO) 25.9 % (20.0-45.0); MEAN CORPUSCULAR VOLUME 87 FL (80-99); MONOCYTES % (AUTO) 5.6 % (1.0-10.0); NEUTROPHILS % (AUTO) 67.8 % (45.0-75.0); PLATELET COUNT 212 K/UL (150-450); RED BLOOD COUNT 4.55 M/UL (4.20-5.40); RED CELL DISTRIBUTION WIDTH 12.1 % (11.6-14.8)
--- NOTE | 2019-02-11 07:37 | NUR ---
HAND-OFF: Report given to YUE Oden.
--- NOTE | 2019-02-11 07:39 | NUR ---
NURSE NOTES: Report received from YUE Dutta. Patient lying in bed. AO 1. Will continue to monitor and orient to situation. Denies pain. No S/S of breathing difficulty noticed. IV patent, intact and SL. Bed on lowest position, side rails upx2, brakes engaged, alarm on. Call light within easy reach.
[2019-02-11 07:55] LABS: ALANINE AMINOTRANSFERASE 45 U/L (12-78); ALBUMIN 3.1 G/DL (3.4-5.0); ALBUMIN/GLOBULIN RATIO 0.9 (1.0-2.7); ALKALINE PHOSPHATASE 71 U/L (46-116); ANION GAP 11 mmol/L (5-15); ASPARTATE AMINO TRANSFERASE 49 U/L (15-37); BILIRUBIN,TOTAL 0.3 MG/DL (0.2-1.0); BLOOD UREA NITROGEN 13 mg/dL (7-18); CARBON DIOXIDE 25 MMOL/L (21-32); CHLORIDE 110 MMOL/L (98-107); CREATININE 0.6 MG/DL (0.55-1.30); SODIUM 146 MMOL/L (136-145)
[2019-02-11 08:00] VITALS: BP 114/76
--- NOTE | 2019-02-11 08:34 | General Progress Note ---
Assessment/Plan Problem List: (1) Brain tumor ICD Codes: D49.6 - Neoplasm of unspecified behavior of brain SNOMED: 663667069 (2) Episode of generalized weakness ICD Codes: R53.1 - Weakness SNOMED: 53616980 (3) Brain mass ICD Codes: G93.9 - Disorder of brain, unspecified SNOMED: 952656932 (4) UTI (lower urinary tract infection) ICD Codes: N39.0 - Urinary tract infection, site not specified SNOMED: 0463265 (5) Sepsis ICD Codes: A41.9 - Sepsis, unspecified organism SNOMED: 47725467 Qualifiers: Qualified Codes: A41.9 - Sepsis, unspecified organism (6) Seizure ICD Codes: R56.9 - Unspecified convulsions SNOMED: 99419218 Status: stable Assessment/Plan: cont sz rx steroids eeg- r/o subclinical seizures ivf as neeed monitor bs abx per id d/w son. wants to transfer pt to [facility](where pts PMD) Subjective ROS Limited/Unobtainable: No Constitutional: Reports: malaise, weakness HEENT: Reports: no symptoms Cardiovascular: Reports: no symptoms Respiratory: Reports: no symptoms Gastrointestinal/Abdominal: Reports: no symptoms Genitourinary: Reports: no symptoms Neurologic/Psychiatric: Reports: pre-existing deficit, seizure Endocrine: Reports: no symptoms Hematologic/Lymphatic: Reports: no symptoms Allergies: Coded Allergies: No Known Allergies (Unverified , 01/20/15) All Systems: reviewed and negative except above Subjective no events. resting. no szs noted. d/w neurosurgeon at [facility]. recommends hospice eval. Objective Last 24 Hour Vital Signs Date Time Temp Pulse Resp B/P (MAP) Pulse Ox O2 Delivery O2 Flow Rate FiO2 02/11/19 04:00 46 02/11/19 04:00 98.0 46 20 119/66 (83) 96 02/11/19 00:00 56 02/11/19 00:00 97.5 56 20 129/70 (89) 100 02/10/19 21:00 Room Air 02/10/19 20:00 74 02/10/19 20:00 98.2 74 18 153/70 (97) 100 02/10/19 16:00 97.3 60 18 153/70 (97) 100 02/10/19 16:00 63 6/18/19 12:00 50 02/10/19 09:00 Room Air Intake and Output 02/10/19 02/11/19 18:59 06:59 Intake Total 120 ml Output Total 2000 ml Balance 120 ml -2000 ml Intake Oral 120 ml Output Urine Total 2000 ml # Bowel Movements 2 Laboratory Tests 02/10/19 09:45: White Blood Count 4.3L, Red Blood Count 4.57, Hemoglobin 13.7, Hematocrit 40.1, Mean Corpuscular Volume 88, Mean Corpuscular Hemoglobin 30.0, Mean Corpuscular Hemoglobin Concent 34.2, Red Cell Distribution Width 12.2, Platelet Count 196, Mean Platelet Volume 7.7, Neutrophils (%) (Auto) 69.3, Lymphocytes (%) (Auto) 26.8, Monocytes (%) (Auto) 3.4, Eosinophils (%) (Auto) 0.0, Basophils (%) (Auto ) 0.5, Sodium Level 141, Potassium Level 3.6, Chloride Level 104, Carbon Dioxide Level 25, Anion Gap 12, Blood Urea Nitrogen 10, Creatinine 0.6, Estimat Glomerular Filtration Rate , Glucose Level 251H, Calcium Level 9.2, Total Bilirubin 0.3, Aspartate Amino Transf (AST/SGOT) 38H, Alanine Aminotransferase ( ALT/SGPT) 25, Alkaline Phosphatase 65, Total Protein 6.0L, Albumin 3.1L, Globulin 2.9, Albumin/Globulin Ratio 1.1 02/11/19 06:35: White Blood Count 5.0, Red Blood Count 4.55, Hemoglobin 13.7, Hematocrit 39.6, Mean Corpuscular Volume 87, Mean Corpuscular Hemoglobin 30.1, Mean Corpuscular Hemoglobin Concent 34.5, Red Cell Distribution Width 12.1, Platelet Count 212, Mean Platelet Volume 7.5, Neutrophils (%) (Auto) 67.8, Lymphocytes (%) (Auto) 25.9, Monocytes (%) (Auto) 5.6, Eosinophils (%) (Auto) 0.0, Basophils (%) (Auto ) 0.7, Sodium Level 146H, Potassium Level 3.0L, Chloride Level 110H, Carbon Dioxide Level 25, Anion Gap 11, Blood Urea Nitrogen 13, Creatinine 0.6, Estimat Glomerular Filtration Rate , Glucose Level 193H, Calcium Level 10.0, Total Bilirubin 0.3, Aspartate Amino Transf (AST/SGOT) 49H, Alanine Aminotransferase ( ALT/SGPT) 45, Alkaline Phosphatase 71, Total Protein 6.4, Albumin 3.1L, Globulin 3.3, Albumin/Globulin Ratio 0.9L, Magnesium Level 1.8, Pro-B-Type Natriuretic Peptide 1475H Height (Feet): 5 Height (Inches): 3.00 Weight (Pounds): 121 General Appearance: WD/WN, alert, lethargic, confused Neck: supple Cardiovascular: normal peripheral pulses, normal rate, regular rhythm Respiratory/Chest: chest wall non-tender, lungs clear, normal breath sounds, no respiratory distress Abdomen: normal bowel sounds, non tender, soft, no organomegaly Edema: no edema noted Arm (L), no edema noted Arm (R), no edema noted Leg (L), no edema noted Leg (R), no edema noted Pedal (L), no edema noted Pedal (R), no edema noted Generalized Oh Armstrong MD Feb 11, 2019 08:34
[2019-02-11] MEDS ORDERED: Sodium Chloride for KCL Premix X 3hrs IV SCH (09:00)
[2019-02-11] MEDS: Docusate 100mg cap ORAL SCH ×2 (09:51→17:20)
[2019-02-11] MEDS: Pancrelipase Dr Cap ORAL SCH ×3 (09:53→17:20)
[2019-02-11] MEDS: Fluconazole 100mg tab ORAL SCH (09:54)
[2019-02-11] MEDS: Ascorbic Acid 500mg tab ORAL SCH (09:54)
[2019-02-11] MEDS: metFORMIN 500mg tab ORAL SCH ×3 (09:55→17:20)
[2019-02-11] MEDS: Lyrica 50mg cap ORAL SCH ×3 (09:55→17:27)
[2019-02-11] MEDS: Lisinopril 10mg tab ORAL SCH (09:56)
[2019-02-11] MEDS: DULoxetine 30mg cap ORAL SCH (09:57)
[2019-02-11] MEDS: levETIRAcetam 500mg/NS100ml 100 ML IVPB SCH ×2 (10:59→20:16)
--- NOTE | 2019-02-11 11:12 | Diagnostic Imaging Report ---
EXAM: XR Chest, 1 View CLINICAL HISTORY: SZ TECHNIQUE: Frontal view of the chest. COMPARISON: 01/20/2015 FINDINGS: Lungs: There are diffuse interstitial infiltrates which are less prominent than on the prior study, possibly due to a greater degree of inspiration. These could represent chronic interstitial changes but mild pulmonary edema and/or pneumonitis cannot be excluded. There is no area of consolidation or evidence of pleural effusion. Heart: There is stable mild enlargement of the cardiac silhouette. The aorta is tortuous. Mediastinum: Unremarkable. Bones/joints: Unremarkable. IMPRESSION: Diffuse interstitial infiltrates which may represent chronic interstitial change but mild pulmonary edema and/or pneumonitis cannot definitely be excluded.
--- NOTE | 2019-02-11 11:12 | Diagnostic Imaging Report ---
EXAM: CT Head Without Intravenous Contrast CLINICAL HISTORY: SZ TECHNIQUE: Axial computed tomography images of the head/brain without intravenous contrast. CTDI is 70.5 mGy and DLP is 1386 mGy-cm. One or more of the following dose reduction techniques were used: automated exposure control, adjustment of the mA and/or kV according to patient size, use of iterative reconstruction technique. COMPARISON: 01/22/2015 FINDINGS: Brain: However, there is a new heterogeneous masslike structure in the right centrum semi-ovale, extending to the right vertex. It measures approximate 5.2 x 3.5 cm in AP by transverse dimension. There is evidence of surrounding edema. There is slight mass effect upon the occipital horn of the right lateral ventricle. There is no evidence of acute intracranial hemorrhage. Midline shift: There is slight midline shift to the left, approximately 5 mm. Ventricles: Unremarkable. No ventriculomegaly. Bones/joints: There are stable postsurgical changes from craniotomy at the posterior vertex. There are stable extra-axial calcification of the frontal regions bilaterally, possibly calcified granulomas. No acute fracture. Soft tissues: Unremarkable. Sinuses: There is minimal mucosal thickening within mastoid air cells bilaterally.. No acute sinusitis. Mastoid air cells: Unremarkable as visualized. No mastoid effusion. IMPRESSION: There is an ill-defined heterogeneous masslike area in the right centrum semiovale extending to the vertex with surrounding edema. Further evaluation with MRI, with and without contrast is recommended. No evidence of acute intracranial hemorrhage. <MYCVCSECTION> Critical Value Communications 02/07/19 07:47 Verify Receipt Verified receipt with ANA Carver, given to Dr Alcantar on 02/07 07:47 (-07:00)
--- NOTE | 2019-02-11 11:19 | NUR ---
CASE MANAGEMENT:REVIEW 02/11/19 SI: SEPSIS. UTI. BRAIN TUMOR/MASS 97.4 55 20 114/76 98% ON RA K-3.0 IS: IV KCL Q1HRS X3 BAGS IVF@100/HR IV KEPPRA Q12 DIFLUCAN PO QD NORVASC PO QD LISINOPRIL PO QD SYNTHROID PO QD CYMBALTA PO QD : TELEMETRY STATUS DCP: PATIENT IS FROM [facility]
[2019-02-11 12:00] VITALS: BP 128/62
--- NOTE | 2019-02-11 13:23 | NUR ---
RD ASSESSMENT & RECOMMENDATIONS SEE CARE ACTIVITY FOR COMPLETE ASSESSMENT DAILY ESTIMATED NEEDS: Needs based on DM, CA/ 55kg 25-30 kcals/kg 3815-2003 total kcals 1-1.5 g protein/kg 55-83 g total protein 25-30 mL/kg 0974-3623 total fluid mLs NUTRITION DIAGNOSIS: * Swallowing difficulty R/T dysphagia, h/o CVA and brain tumor, s/p craniotomy as evidenced by pt on pureed moist, HTL at this time. * Altered nutrition related lab values R/T diabetes as evidenced by elev BGs and POC glu ([phone]) CURRENT DIET:CCHO MED, pureed moist NTL PO DIET RECOMMENDATIONS: CCHO LOW, LOW NA/ Texture per AUTOMATIC BUFFING WHEEL FORMER ADDITIONAL RECOMMENDATIONS: * Calibrated bedscale wt for accurate CBW * Monitor lytes, replete as needed (K 3.0) * Add Glucerna 1 bottle BID in b/w meals w/ variable PO intake * A1C for eval of glycemic control
[2019-02-11 16:00] VITALS: BP 115/64
--- NOTE | 2019-02-11 16:01 | NUR ---
Social Service Note MALCOLM spoke with patient's son Lenin Méndez [phone] regarding family request for transfer to [facility]. Per son he has spoke with Dr. Be patient's PCP regarding possible transfer. Son will follow up with Dr. Be tomorrow once he speaks to patient's neurologist Dr. Duke to formulate a transfer plan. Son will follow up with MALCOLM in AM.
--- NOTE | 2019-02-11 19:48 | NUR ---
HAND-OFF: Report given to YUE Gardiner. Patient in stable condition.
--- NOTE | 2019-02-11 19:49 | NUR ---
NURSE NOTES: Report received from YUE Oden. PAtient seen in bed in semi loo position on room air with no SOB noted. Alert, verbally responsive, able to make needs known with episode of confusion. denies any pain at this time. Noted IV Site to right wrist 20g and is intact. Negron cath in place and is intact. urine is flowing. Bed is in lowest position. Call light is within easy reach while in bed. will continue to monitor.
[2019-02-11 20:00] VITALS: BP 119/66
[2019-02-11] MEDS: Levemir Flexpen SUBQ SCH (20:17)
[2019-02-12] VITALS: BP 104/59
[2019-02-12] MEDS: Dexamethasone 4mg/ml vial IVP SCH ×5 (00:15→23:57)
--- NOTE | 2019-02-12 02:07 | Neurology Progress Note ---
Interim History Interim History ROS Limited/Unobtainable: Yes - Secondary to primary language-Farsi Complaints: Seizure/ Weakness Events: Currently on 4mg QID Dex Interim History This visit was performed on February 11, [address] Fischer Review of Systems Neuro Review of Systems No seizures noted, Video Swallow study pending All Systems: reviewed and negative except above Objective Physical Exam Last Vital Signs Date Time Temp Pulse Resp B/P (MAP) Pulse Ox O2 Delivery O2 Flow Rate FiO2 02/12/19 00:00 98.0 71 18 104/59 (74) 96 02/11/19 21:00 Room Air Laboratory Tests Test 02/11/19 06:35 White Blood Count 5.0 K/UL (4.8-10.8) Red Blood Count 4.55 M/UL (4.20-5.40) Hemoglobin 13.7 G/DL (12.0-16.0) Hematocrit 39.6 % (37.0-47.0) Mean Corpuscular Volume 87 FL (80-99) Mean Corpuscular Hemoglobin 30.1 PG (27.0-31.0) Mean Corpuscular Hemoglobin Concent 34.5 G/DL (32.0-36.0) Red Cell Distribution Width 12.1 % (11.6-14.8) Platelet Count 212 K/UL (150-450) Mean Platelet Volume 7.5 FL (6.5-10.1) Neutrophils (%) (Auto) 67.8 % (45.0-75.0) Lymphocytes (%) (Auto) 25.9 % (20.0-45.0) Monocytes (%) (Auto) 5.6 % (1.0-10.0) Eosinophils (%) (Auto) 0.0 % (0.0-3.0) Basophils (%) (Auto) 0.7 % (0.0-2.0) Sodium Level 146 MMOL/L (136-145) H Potassium Level 3.0 MMOL/L (3.5-5.1) L Chloride Level 110 MMOL/L (98-107) H Carbon Dioxide Level 25 MMOL/L (21-32) Anion Gap 11 mmol/L (5-15) Blood Urea Nitrogen 13 mg/dL (7-18) Creatinine 0.6 MG/DL (0.55-1.30) Estimat Glomerular Filtration Rate mL/min (>60) Glucose Level 193 MG/DL (74-106) H Calcium Level 10.0 MG/DL (8.5-10.1) Magnesium Level 1.8 MG/DL (1.8-2.4) Total Bilirubin 0.3 MG/DL (0.2-1.0) Aspartate Amino Transf (AST/SGOT) 49 U/L (15-37) H Alanine Aminotransferase (ALT/SGPT) 45 U/L (12-78) Alkaline Phosphatase 71 U/L (46-116) Pro-B-Type Natriuretic Peptide 1475 pg/mL (0-125) H Total Protein 6.4 G/DL (6.4-8.2) Albumin 3.1 G/DL (3.4-5.0) L Globulin 3.3 g/dL Albumin/Globulin Ratio 0.9 (1.0-2.7) L General: well developed, well nourished Head: normocophalic Neck: no rigidity EENT: benign Neurologic Exam Mental Status: awake, alert, oriented x4, normal cognition, good mathematical skills, normal recent memory, normal remote memory, preserved visuospatial function Speech: normal speech, no dysarthia Language: normal language, no aphasia Cranial Nerve II: fundus normal, visual perrin, no papilledema Cranial Nerves III, IV, : PERRLA, EOMI, pupils Cranial Nerve V: normal facial sensations, temporales function normal, masseters function normal, pterygoids function normal Cranial Nerve VII: normal facial expressions Cranial Nerve VIII: normal hearing, no nystagmus Cranial Nerve IX: normal palate elevation, gag response Cranial Nerve X: no voice hoarseness Cranial Nerve XI: SCM symmetric, trapezii function normal Cranial Nerve XII: no tongue atrophy/fasciculations Motor System: normal muscle tone, no involuntary movement, no muscle wasting, other Sensory: normal pinprick, normal light touch, normal position sense, normal graphesthesia Coordination: other Objective Patient with left facial weakness of left lower face and hemiparesis of left side at baseline and on exam. Imaging [facility] [place] Medical Imaging [address] [place] , [place] [id number] , fax [phone] Anthony Monroe M.D. Lace Sewer Patient : PAOLA LEON Referring Physician: Fidelina Ortiz N.P. Number: [id number] Service Date: 02/09/19 : 1930 Report Date: 02/09/19 Gender: F Accession No.: [id number] Location: 2E Procedure: MRI Brain w/wo Contrast Indication: Seizures, abnormal recent head CT Technique: sagittal T1 fast spin echo, axial T1 and T2 FLAIR PROPELLER, axial T2 FS PROPELLER, T2* GRE, axial diffusion weighted images, post contrast axial and coronal T1 FLAIR PROPELLER images. ADC and exponential ADC maps generated Comparison: Reference made to head CTs of 02/07/2019 and 01/22/2015. Findings: There is a large mass in the posterior parasagittal high parietal region. This measures 6 cm AP by 3.9 cm transverse by 4.8 cm craniocaudad. There is considerable edema of the occipital, temporal, parietal, and posterior frontal deep white matter. Mass effect mostly manifests as attenuation of the adjacent CSF spaces. There is approximately 4 mm of vhybp-sm-ovzk midline shift. The basilar cisterns are open. Lesion is slightly hyperintense to gomez matter on the T2-weighted images, isointense to white matter on the T2 FLAIR, slightly hypointense to gomez matter on the T1-weighted images.. Lesion and intensely and fairly homogeneously. Lesion is probably although not definitively extra-axial. There is also a small separate lesion along the superior sagittal sinus which demonstrates similar signal characteristics, measures 13 mm long axis dimension. There is also generalized thickening and enhancement of the falx, with some extension of the meningeal thickening into the lateral dura on both sides of the falx. Parafalcine epidural components appear, however, to be separate from the main lesion. This area is subjacent to a craniotomy defect which is better appreciated on the prior CT scans. The lesions demonstrate restricted diffusion. Some abnormal signal in the posterior right temporal and occipital lobes is more suggestive of cystic encephalomalacia than of acute vasogenic edema and there is an addition some cortical encephalomalacia in this area There is an extra-axial mass in the left posterior frontal region which demonstrates intense susceptibility artifact, indicative of heavy calcification demonstrated on recent CT scans. Another similar 11 mm lesion is seen in the right frontal region. These are hypointense on the spin echo sequences, and has slightly on the postcontrast images. No other foci of restricted diffusion to suggest acute infarct. No acute hemorrhage. Old lacunar infarct is seen in the left parietal deep white matter. Visualized orbits and sinuses are unremarkable. Vascular flow voids are preserved. Impression: 6 x 3.9 x 4.8 cm mass in the parasagittal right posterior parietal region as described. Associated edema and mass effect as described. Quite possibly recurrent tumor, given location deep to a prior craniotomy. Most likely a meningioma, particularly in view of the stated clinical history of such. Old ossified left posterior frontal and right anterior frontal region meningiomas, also demonstrated on prior CT scans Some of the abnormal signal in the left posterior temporal and occipital lobe is more suggestive of chronic encephalomalacia than acute vasogenic edema. Age-related volume loss Old right parietal deep white matter lacunar infarct Dictated By: Juve Hill MD Electronically Signed By: Juve Hill MD Signed Date/Time 02/09/19 1827 CC: Fidelina Ortiz N.P.; Oh Armstrong MD DATE OF TRACIN02/09/2019 REQUESTING PHYSICIAN: Oh Armstrong M.D. READING PHYSICIAN: Sid Acuña M.D. HISTORY: This EEG was performed on an 88-year-old lady with a history of a brain tumor that was surgically removed with right craniotomy and in addition multiple lesions involving the brain at this point in time. The patient was admitted with an altered mental state, urinary tract infection and sepsis. The purpose of this EEG was to evaluate the patient for the degree and type of cerebral dysfunction and to exclude ongoing ictal or interictal phenomena as she continues to have an altered mental state. TECHNICAL NOTE: This EEG was performed on a [employer] with electrodes placed on the scalp according to the international 10-20 system. Fcwbp-st-knwve and whucp-re-bxf montages were used. The EEG was technically satisfactory and was performed while the patient was in a stuporous state. OBSERVATIONS: In the reportedly stuporous state, the background activity consisted of 5 to 6 hertz theta with intermixed delta frequencies. Right frontocentral parietal polymorphic delta activity was also noted. Multiple episodes of spike and wave and runs of rapid spikes lasting 10 to 50 seconds was seen emanating from the C4-T4 electrodes. No clinical manifestations were noted when the patient was having these abnormal discharges. IMPRESSION: This is an abnormal EEG characterized by, 1. Slowing of the background predominantly in the 5 to 6 hertz theta range with some intermixed delta frequencies. 2. Right frontocentral parietal polymorphic delta activity. 3. Multiple runs of electrographic discharges emanating from C4-T4 lasting 10 to 50 seconds at a time. COMMENT: The study is consistent with: 1. An encephalopathy of a moderate degree. 2. Focal right frontocentral parietal dysfunction. 3. Electrographic seizures emanating from the right central parietal region. Clinical correlation is recommended. Sid Acuña M.D. DR: KHADRA JOB#: [id number] CC: Impression/Recommendations Problems: (1) Limited mobility (2) Pneumonia (3) UTI (lower urinary tract infection) (4) Sepsis (5) Seizure (6) Episode of generalized weakness (7) Encephalopathy due to metabolic factor or toxin (8) Lactic acidosis (9) History of meningioma of the brain (10) Brain mass Status: stable Diagnostic Impression Q4 Hour Neuro Obs Given waxing/ waning mentation- stay on 4mg QID Dex Evidence of seizures on EEG- increased Keppra to 1000mg BID- converting to oral given transfer planning for [facility] with primary Neurologist. SBP<140 Maintain normoglycemia with [facility] Evaluation- Recs given regarding need for supervised feeding. Consider Enteral Nutrition? Seizure Precautions Recommendations Consider decreased dose of dexamethasone as able. 4mg TID now rec'd SBP<140 Continue Q4 Neuro Obs EEG Pending Continue ABx as per ID Maintain Normothermia Maintain normoglycemia with ISS Neurosurgical consultation + Heme Onc COnsultation regarding medical / surgical treatment options. Na 135-145 Fidelina Ortiz N.P. Feb 12, 2019 02:06
[2019-02-12 03:20] VITALS: BP 103/61
--- NOTE | 2019-02-12 04:15 | Progress Note ---
DATE: 02/10/2019 CARDIOLOGY PROGRESS NOTE SUBJECTIVE: She remains confused especially when family members are not at bedside. She has not had any apparent shortness of breath. Monitored rhythm, paroxysms of atrial fibrillation, short episodes of bradyarrhythmias, asymptomatic with heart rates in the high 30s and 40s. OBJECTIVE: VITAL SIGNS: Blood pressure 139/61, heart rate 51, and respirations 20. LUNGS: Clear. CARDIAC: Irregular. Normal S1, S2 with no murmur. ABDOMEN: Soft. EXTREMITIES: Without edema. IMPRESSION: 1. Brain tumor, malignant. 2. Associated edema. 3. Seizure disorder. 4. Paroxysmal atrial fibrillation. 5. Advanced conduction system disease of the heart. 6. Dementia with confusion. PLAN: 1. The patient is not on any medications with negative chronotropic potential. 2. Antiseizure therapy with seizure precautions. 3. No plan for anticoagulation due to bleeding risk. 4. No class 1 criteria for permanent pacemaker at this time. The patient is not ambulatory. Jimmie Cosby M.D. DR: SAMUEL JOB#: [id number] CC:
--- NOTE | 2019-02-12 04:15 | Progress Note ---
DATE: 02/11/2019 CARDIOLOGY PROGRESS NOTE SUBJECTIVE: The patient remains without seizures. She continues on steroids and antiseizure therapy. The patient has had episodes of bradycardia, asymptomatic with no loss of consciousness. Paroxysms of atrial fibrillation noted as well. OBJECTIVE: VITAL SIGNS: Blood pressure 119/66, heart rate 46, and respirations 20. LUNGS: Clear. CARDIAC: Regular rhythm. Slow rate. ABDOMEN: Soft. EXTREMITIES: No edema. IMPRESSION: 1. Advanced conduction system disease. 2. Paroxysmal atrial fibrillation. 3. Hypertensive heart disease with controlled blood pressure. 4. Chronic diastolic congestive heart failure. 5. Malignant brain tumor with edema and seizures. PLAN: 1. Neurosurgery has recommended hospice care. 2. The patient does not have symptomatic bradyarrhythmias and has a very poor performance status as well as prognosis apparently. At this time, permanent pacemaker is not recommended. However if the patient's condition improves and she becomes ambulatory, this will be readdressed. Jimmie Cosby M.D. DR: SAMUEL JOB#: [id number] CC:
[2019-02-12] MEDS: sitaGLIPtin 50mg tab ORAL SCH (05:42)
[2019-02-12] MEDS: NovoLOG Insulin Flexpen SUBQ SCH ×4 (05:43→20:37)
--- NOTE | 2019-02-12 07:19 | NUR ---
HAND-OFF: Report given to Radha Grubbs RN.
--- NOTE | 2019-02-12 07:36 | General Progress Note ---
Assessment/Plan Problem List: (1) Brain tumor ICD Codes: D49.6 - Neoplasm of unspecified behavior of brain SNOMED: 052390733 (2) Episode of generalized weakness ICD Codes: R53.1 - Weakness SNOMED: 60491713 (3) Brain mass ICD Codes: G93.9 - Disorder of brain, unspecified SNOMED: 030140093 (4) UTI (lower urinary tract infection) ICD Codes: N39.0 - Urinary tract infection, site not specified SNOMED: 4684095 (5) Sepsis ICD Codes: A41.9 - Sepsis, unspecified organism SNOMED: 42972039 Qualifiers: Qualified Codes: A41.9 - Sepsis, unspecified organism (6) Seizure ICD Codes: R56.9 - Unspecified convulsions SNOMED: 38194176 Status: stable Assessment/Plan: cont sz rx per neuro steroids ivf as neeed monitor bs abx per id d/w son. wants to transfer pt to [facility](where pts PMD) Subjective ROS Limited/Unobtainable: No Constitutional: Reports: malaise, weakness HEENT: Reports: no symptoms Cardiovascular: Reports: no symptoms Respiratory: Reports: no symptoms Gastrointestinal/Abdominal: Reports: no symptoms Genitourinary: Reports: no symptoms Neurologic/Psychiatric: Reports: seizure Endocrine: Reports: no symptoms Hematologic/Lymphatic: Reports: no symptoms Allergies: Coded Allergies: No Known Allergies (Unverified , 01/20/15) All Systems: reviewed and negative except above Subjective no events. resting. no szs noted. EEG shows +sz activity. keppra increased by neuro Objective Last 24 Hour Vital Signs Date Time Temp Pulse Resp B/P (MAP) Pulse Ox O2 Delivery O2 Flow Rate FiO2 02/12/19 03:20 97.3 60 18 103/61 (75) 97 02/12/19 03:20 59 02/12/19 00:00 98.0 71 18 104/59 (74) 96 02/11/19 23:33 63 02/11/19 21:00 Room Air 02/11/19 20:00 98.4 74 18 119/66 (83) 99 02/11/19 19:51 68 02/11/19 16:00 97.6 59 20 115/64 (81) 96 02/11/19 16:00 55 02/11/19 12:00 97.4 60 18 128/62 (84) 96 02/11/19 09:56 114/76 02/11/19 09:53 63 114/76 02/11/19 09:00 Room Air 02/11/19 08:00 55 02/11/19 08:00 97.4 60 20 114/76 (89) 98 Intake and Output 02/11/19 02/12/19 19:00 07:00 Intake Total 100 ml Output Total 700 ml 600 ml Balance -700 ml -500 ml IV Total 100 ml Output Urine Total 700 ml 600 ml # Bowel Movements 1 1 Height (Feet): 5 Height (Inches): 3.00 Weight (Pounds): 121 General Appearance: WD/WN, lethargic, confused Neck: supple Cardiovascular: normal peripheral pulses, normal rate, regular rhythm Respiratory/Chest: chest wall non-tender, lungs clear, normal breath sounds Abdomen: normal bowel sounds, non tender, soft, no organomegaly Edema: no edema noted Arm (L), no edema noted Arm (R), no edema noted Leg (L), no edema noted Leg (R), no edema noted Pedal (L), no edema noted Pedal (R), no edema noted Generalized Neurologic: responsive Oh Armstrong MD Feb 12, 2019 07:36
[2019-02-12 08:00] VITALS: BP 115/59
--- NOTE | 2019-02-12 08:06 | NUR ---
NURSE NOTES: Patient is asleep. No s/s of discomfort. Side rails are up x2, Side rails are padded, bed is locked and in lowest position. Patient is near nurse's station. Will continue to monitor.
[2019-02-12 08:47] LABS: ALANINE AMINOTRANSFERASE 37 U/L (12-78); ALBUMIN 2.8 G/DL (3.4-5.0); ALBUMIN/GLOBULIN RATIO 0.9 (1.0-2.7); ALKALINE PHOSPHATASE 67 U/L (46-116); ANION GAP 10 mmol/L (5-15); ASPARTATE AMINO TRANSFERASE 33 U/L (15-37); BILIRUBIN,TOTAL 0.2 MG/DL (0.2-1.0); BLOOD UREA NITROGEN 15 mg/dL (7-18); CALCIUM 9.6 MG/DL (8.5-10.1); CARBON DIOXIDE 27 MMOL/L (21-32); CHLORIDE 109 MMOL/L (98-107); CREATININE 0.6 MG/DL (0.55-1.30); POTASSIUM 3.8 MMOL/L (3.5-5.1); SODIUM 146 MMOL/L (136-145)
[2019-02-12] MEDS: Pancrelipase Dr Cap ORAL SCH ×3 (09:18→17:39)
[2019-02-12] MEDS: DULoxetine 30mg cap ORAL SCH (09:18)
[2019-02-12] MEDS: Fluconazole 100mg tab ORAL SCH (09:18)
[2019-02-12] MEDS: metFORMIN 500mg tab ORAL SCH ×3 (09:19→17:39)
[2019-02-12] MEDS: Docusate 100mg cap ORAL SCH ×2 (09:19→17:39)
[2019-02-12] MEDS: Lyrica 50mg cap ORAL SCH ×3 (09:19→17:39)
[2019-02-12] MEDS: Lisinopril 10mg tab ORAL SCH (09:20)
[2019-02-12] MEDS: Ascorbic Acid 500mg tab ORAL SCH (09:20)
--- NOTE | 2019-02-12 11:36 | Infectious Diseases Prog Note ---
Assessment/Plan Assessment/Plan antibiotics : fluconazole A 1. fungal UTI 2. meningioma 3. seizures 4. diabetes mellitus 5. hypertension P 1. continue fluconazole 4 more days 2. will follow up cultures Subjective ROS Limited/Unobtainable: Yes Allergies: Coded Allergies: No Known Allergies (Unverified , 01/20/15) Objective Vital Signs Last 24 Hour Vital Signs Date Time Temp Pulse Resp B/P (MAP) Pulse Ox O2 Delivery O2 Flow Rate FiO2 02/12/19 09:20 115/59 02/12/19 09:19 64 115/59 02/12/19 08:30 Room Air 02/12/19 08:00 48 02/12/19 08:00 98.2 64 20 115/59 (77) 95 02/12/19 03:20 97.3 60 18 103/61 (75) 97 02/12/19 03:20 59 02/12/19 00:00 98.0 71 18 104/59 (74) 96 02/11/19 23:33 63 02/11/19 21:00 Room Air 02/11/19 20:00 98.4 74 18 119/66 (83) 99 02/11/19 19:51 68 02/11/19 16:00 97.6 59 20 115/64 (81) 96 02/11/19 16:00 55 02/11/19 12:00 97.4 60 18 128/62 (84) 96 Height (Feet): 5 Height (Inches): 3.00 Weight (Pounds): 121 Respiratory/Chest: lungs clear Cardiovascular: normal rate, regular rhythm, no gallop/murmur Abdomen: soft, non tender Extremities: no edema Laboratory Tests Test 02/12/19 07:56 Sodium Level 146 MMOL/L (136-145) H Potassium Level 3.8 MMOL/L (3.5-5.1) Chloride Level 109 MMOL/L (98-107) H Carbon Dioxide Level 27 MMOL/L (21-32) Anion Gap 10 mmol/L (5-15) Blood Urea Nitrogen 15 mg/dL (7-18) Creatinine 0.6 MG/DL (0.55-1.30) Estimat Glomerular Filtration Rate mL/min (>60) Glucose Level 213 MG/DL (74-106) H Calcium Level 9.6 MG/DL (8.5-10.1) Total Bilirubin 0.2 MG/DL (0.2-1.0) Aspartate Amino Transf (AST/SGOT) 33 U/L (15-37) Alanine Aminotransferase (ALT/SGPT) 37 U/L (12-78) Alkaline Phosphatase 67 U/L (46-116) Total Protein 6.0 G/DL (6.4-8.2) L Albumin 2.8 G/DL (3.4-5.0) L Globulin 3.2 g/dL Albumin/Globulin Ratio 0.9 (1.0-2.7) L Current Medications Medications (Trade) Dose Ordered Sig/Stefano Route PRN Reason Start Time Stop Time Status Last Admin Dose Admin Acetaminophen (Tylenol) 500 mg Q6H PRN ORAL Mild Pain/Temp > 100.5 02/07/19 12:00 03/09/19 11:59 Acetaminophen/ Hydrocodone Bitart ([place] 5/325) 1 tab Q6H PRN ORAL pain 4-10 02/07/19 12:00 02/14/19 11:59 Amlodipine Besylate (Norvasc) 2.5 mg DAILY ORAL 02/10/19 09:00 03/12/19 08:59 02/12/19 09:19 Amylase/Lipase/ Protease (Zenpep) 1 ea TIPC ORAL 02/09/19 18:00 03/11/19 17:59 02/12/19 09:18 Ascorbic Acid (Vitamin C) 500 mg DAILY ORAL 02/08/19 09:00 03/10/19 08:59 02/12/19 09:20 Dexamethasone Sodium Phosphate (Decadron 4mg/ml vial) 4 mg Q6HR IVP 02/07/19 15:00 03/09/19 14:59 02/12/19 05:41 Dextrose (Dextrose 50%) 25 ml Q30M PRN IV Hypoglycemia 02/07/19 12:15 03/09/19 12:14 Dextrose (Dextrose 50%) 50 ml Q30M PRN IV Hypoglycemia 02/07/19 12:15 03/09/19 12:14 Docusate Sodium (Colace) 100 mg TWICE A DAY ORAL 02/07/19 18:00 03/09/19 17:59 02/12/19 09:19 Duloxetine HCl (Cymbalta) 30 mg DAILY ORAL 02/08/19 09:00 03/10/19 08:59 02/12/19 09:18 Ferrous Sulfate (Feosol) 325 mg DAILY ORAL 02/08/19 09:00 03/10/19 08:59 02/12/19 09:19 Fluconazole (Diflucan) 100 mg DAILY ORAL 02/10/19 10:45 02/17/19 10:44 02/12/19 09:18 Gadobutrol (Gadavist) 7.5 mmol NOW PRN IV Radiology Procedure 02/09/19 11:00 02/13/19 10:46 Insulin Aspart (NovoLOG) BEFORE MEALS AND HS SUBQ 02/07/19 16:30 03/09/19 16:29 02/12/19 05:43 Insulin Detemir (Levemir) 12 units BEDTIME SUBQ 02/07/19 21:00 03/09/19 20:59 02/11/19 20:17 Levetiracetam (Keppra) 1,000 mg Q12HR ORAL 02/12/19 09:00 03/14/19 08:59 02/12/19 09:18 Levothyroxine Sodium (Synthroid) 88 mcg DAILY@0630 ORAL 02/10/19 06:30 03/12/19 06:29 02/12/19 05:42 Lisinopril (Zestril) 10 mg DAILY ORAL 02/10/19 09:00 03/12/19 08:59 02/12/19 09:20 Metformin HCl (Glucophage) 500 mg TID ORAL 02/07/19 18:00 03/09/19 17:59 02/12/19 09:19 Mirtazapine (Remeron) 15 mg BEDTIME ORAL 02/07/19 21:00 03/09/19 20:59 02/11/19 20:16 Pregabalin (Lyrica) 50 mg THREE TIMES A DAY ORAL 02/07/19 18:00 03/09/19 17:59 02/12/19 09:19 Sitagliptin Phosphate (Januvia) 50 mg ACBREAKFAST ORAL 02/09/19 06:30 03/11/19 06:29 02/12/19 05:42 Teodoro Sue MD Feb 12, 2019 11:36
[2019-02-12 12:00] VITALS: BP 110/82
[2019-02-12 16:00] VITALS: BP 126/63
--- NOTE | 2019-02-12 19:15 | NUR ---
NURSE NOTES: Received bedside report from YUE Garcia.Patient stable,no c/o pain,no respiratory distress noted,oriented x1,A-fib on cafeteria monitor,tolerated r/air well,f/cath for retention draining toward gravity,skin intact,IV on R wrist 20G asymptomatic,intact SL,bed secured,call light within a reach,will continue to monitor and follow POC.
--- NOTE | 2019-02-12 19:26 | NUR ---
HAND-OFF: Report given to YEU Zelaya.
[2019-02-12 20:00] VITALS: BP 109/63
[2019-02-12] MEDS: Levemir Flexpen SUBQ SCH (20:36)
--- NOTE | 2019-02-12 23:14 | Diagnostic Imaging Report ---
APPROVED REPORT CPT Code: 99500 Present Symptoms Comments: AMS EDEMA BILATERAL: Imaging reveals a patent deep venous system bilaterally. There is no evidence of thrombus within the femoral, popliteal or tibial segments. The greater saphenous veins are also within normal limits. Doppler indicates normal spontaneous flow within these segments.
[2019-02-13] VITALS (7 sets, daily range): BP systolic 105–148; BP diastolic 56–79
--- NOTE | 2019-02-13 04:15 | Progress Note ---
DATE: 02/12/2019 CARDIOLOGY PROGRESS NOTE SUBJECTIVE: The patient's EEG reveals ongoing seizure activity. Therapy was adjusted accordingly. The patient remains with sinus rhythm, paroxysms of atrial fibrillation and episodes of bradycardia. No associated loss of consciousness. OBJECTIVE: VITAL SIGNS: Blood pressure 103/61, pulse 60, respirations 18, and afebrile. LUNGS: Clear. CARDIAC: Irregular. Normal S1, S2. ABDOMEN: Soft. EXTREMITIES: No edema. IMPRESSION: 1. Malignant brain tumor with edema. 2. Seizure disorder. 3. Paroxysmal atrial fibrillation. 4. Advanced conduction system disease of the heart. 5. Hypertensive heart disease. PLAN: 1. Steroids. 2. Antiseizure therapy. 3. Maintenance hydration. 4. Cardiac monitoring. 5. No class 1 indication for pacemaker as the patient is presently nonambulatory with poor performance status and prognosis. Jimmie Cosby M.D. DR: YESSICA JOB#: [id number] CC:
[2019-02-13] MEDS: sitaGLIPtin 50mg tab ORAL SCH (05:50)
[2019-02-13] MEDS: Dexamethasone 4mg/ml vial IVP SCH ×4 (05:50→23:15)
[2019-02-13] MEDS: NovoLOG Insulin Flexpen SUBQ SCH ×4 (05:52→21:31)
--- NOTE | 2019-02-13 07:13 | NUR ---
HAND-OFF: Report given to YUE Lin.Patient stable.
--- NOTE | 2019-02-13 07:30 | NUR ---
NURSE NOTES: Received bedside report from Nathalie TURNER. Pt. in bed, asleep but arousable. No sign of distress. No grimacing noted. IV at right wrist #[id number]. in placed SL. Padded side rails in placed. Bed in low position, locked. Call light within reach. Will cont. to monitor.
--- NOTE | 2019-02-13 08:23 | General Progress Note ---
Assessment/Plan Problem List: (1) Brain tumor ICD Codes: D49.6 - Neoplasm of unspecified behavior of brain SNOMED: 168073538 (2) Episode of generalized weakness ICD Codes: R53.1 - Weakness SNOMED: 74617975 (3) Brain mass ICD Codes: G93.9 - Disorder of brain, unspecified SNOMED: 844474189 (4) UTI (lower urinary tract infection) ICD Codes: N39.0 - Urinary tract infection, site not specified SNOMED: 4543057 (5) Sepsis ICD Codes: A41.9 - Sepsis, unspecified organism SNOMED: 00473477 Qualifiers: Qualified Codes: A41.9 - Sepsis, unspecified organism (6) Seizure ICD Codes: R56.9 - Unspecified convulsions SNOMED: 28351623 Status: stable Assessment/Plan: cont sz rx per neuro steroids ivf as neeed monitor bs abx per id d/w son. PMD at [facility] recommends NOT TRANSFERRING to [facility] son aware. dc planning to [facility] if stable- cleared by neuro Subjective ROS Limited/Unobtainable: No Constitutional: Reports: malaise, weakness HEENT: Reports: no symptoms Cardiovascular: Reports: no symptoms Respiratory: Reports: no symptoms Gastrointestinal/Abdominal: Reports: no symptoms Genitourinary: Reports: no symptoms Neurologic/Psychiatric: Reports: pre-existing deficit, seizure Endocrine: Reports: no symptoms Hematologic/Lymphatic: Reports: no symptoms Allergies: Coded Allergies: No Known Allergies (Unverified , 01/20/15) All Systems: reviewed and negative except above Subjective no events. resting. no szs noted. remains confused. according to son- pt closer to baseline Objective Last 24 Hour Vital Signs Date Time Temp Pulse Resp B/P (MAP) Pulse Ox O2 Delivery O2 Flow Rate FiO2 02/13/19 04:00 97.9 61 14 108/58 (75) 97 02/13/19 03:55 67 02/13/19 00:00 97.5 87 16 113/56 (75) 95 02/12/19 23:56 81 02/12/19 21:00 Room Air 02/12/19 20:00 97.5 78 16 109/63 (78) 95 02/12/19 19:14 57 02/12/19 16:00 98.7 51 18 126/63 (84) 97 02/12/19 16:00 58 02/12/19 12:00 97.2 50 18 110/82 (91) 97 02/12/19 12:00 53 02/12/19 09:20 115/59 02/12/19 09:19 64 115/59 02/12/19 08:30 Room Air Intake and Output 02/12/19 02/13/19 19:00 07:00 Intake Total 240 ml 240 ml Output Total 300 ml 350 ml Balance -60 ml -110 ml Intake Oral 240 ml 240 ml Output Urine Total 300 ml 350 ml Height (Feet): 5 Height (Inches): 3.00 Weight (Pounds): 121 Objective helena: supple Cardiovascular: normal peripheral pulses, normal rate, regular rhythm Respiratory/Chest: chest wall non-tender, lungs clear, normal breath sounds Abdomen: normal bowel sounds, non tender, soft, no organomegaly Edema: no edema noted Arm (L), no edema noted Arm (R), no edema noted Leg (L), no edema noted Leg (R), no edema noted Pedal (L), no edema noted Pedal (R), no edema noted Generalized Neurologic: responsive Oh Armstrong MD Feb 13, 2019 08:23
[2019-02-13] MEDS: Pancrelipase Dr Cap ORAL SCH ×3 (09:19→17:25)
[2019-02-13] MEDS: Ascorbic Acid 500mg tab ORAL SCH (09:19)
[2019-02-13] MEDS: metFORMIN 500mg tab ORAL SCH ×3 (09:19→17:25)
[2019-02-13] MEDS: DULoxetine 30mg cap ORAL SCH (09:19)
[2019-02-13] MEDS: Docusate 100mg cap ORAL SCH ×2 (09:19→17:25)
[2019-02-13] MEDS: Fluconazole 100mg tab ORAL SCH (09:19)
[2019-02-13] MEDS: Lisinopril 10mg tab ORAL SCH (09:20)
[2019-02-13] MEDS: Lyrica 50mg cap ORAL SCH ×3 (09:20→17:25)
--- NOTE | 2019-02-13 10:07 | NUR ---
ST NOTE: SWALLOW/SPEECH/COGNITION STATUS: FOLLOWED PT'S CONDITIONS. PT SEEN AT BEDSIDE IN AM. ALERT, COOPERATIVE, NURSING STAFF IS AT BEDSIDE. ADJUST PT AT UPRIGHT POSITIONS. COMPLETED MEAL OBSERVATION, PT TOLERATED PUREE WITH HONEY THICK LIQUIDS, PT TOLERATED CURRENT DIET WITHOUT OVERT S/S OF ASPIRATION. PER NURSING STAFF, PT TOLERATED IT WELL. SPOKE TO NASEEM TURNER RE: PT'S CONDITIONS AND DIET RECOMMENDATIONS. REVIEWED MODIFIED BARIUM SWALLOW STUDY, PT TOLERATED ALL CONSISTENCIES WITHOUT OVERT S/S OF ASPIRATION. UPGRADE PT'S DIET TO CCHO(MEDIUM) MOIST PUREE WITH NECTAR THICK LIQUIDS WITH STRICT ASPIRATION PRECAUTIONS WITH 1TO1 FEEDING. D/W NASEEM TURNER AND THE STAFF.
[2019-02-13 10:19] LABS: BASOPHILS % (AUTO) 0.5 % (0.0-2.0); EOSINOPHILS % (AUTO) 0.1 % (0.0-3.0); HEMATOCRIT 42.7 % (37.0-47.0); HEMOGLOBIN 14.3 G/DL (12.0-16.0); LYMPHOCYTES % (AUTO) 24.3 % (20.0-45.0); MEAN CORPUSCULAR VOLUME 89 FL (80-99); MONOCYTES % (AUTO) 4.4 % (1.0-10.0); NEUTROPHILS % (AUTO) 70.7 % (45.0-75.0); PLATELET COUNT 222 K/UL (150-450); RED BLOOD COUNT 4.81 M/UL (4.20-5.40); RED CELL DISTRIBUTION WIDTH 12.4 % (11.6-14.8); WHITE BLOOD COUNT 6.3 K/UL (4.8-10.8)
--- NOTE | 2019-02-13 10:34 | Infectious Diseases Prog Note ---
Assessment/Plan Assessment/Plan antibiotics : fluconazole A 1. fungal UTI 2. meningioma 3. seizures 4. diabetes mellitus 5. hypertension P 1. continue fluconazole 3 more days 2. will follow up cultures Subjective ROS Limited/Unobtainable: Yes Allergies: Coded Allergies: No Known Allergies (Unverified , 01/20/15) Objective Vital Signs Last 24 Hour Vital Signs Date Time Temp Pulse Resp B/P (MAP) Pulse Ox O2 Delivery O2 Flow Rate FiO2 02/13/19 09:20 148/66 02/13/19 09:18 54 148/66 02/13/19 08:00 97.8 54 20 148/66 (93) 98 02/13/19 04:00 97.9 61 14 108/58 (75) 97 02/13/19 03:55 67 02/13/19 00:00 97.5 87 16 113/56 (75) 95 02/12/19 23:56 81 02/12/19 21:00 Room Air 02/12/19 20:00 97.5 78 16 109/63 (78) 95 02/12/19 19:14 57 02/12/19 16:00 98.7 51 18 126/63 (84) 97 02/12/19 16:00 58 02/12/19 12:00 97.2 50 18 110/82 (91) 97 02/12/19 12:00 53 Height (Feet): 5 Height (Inches): 3.00 Weight (Pounds): 121 Respiratory/Chest: lungs clear Cardiovascular: normal rate, regular rhythm, no gallop/murmur Abdomen: soft, non tender Extremities: no edema Laboratory Tests Test 02/13/19 09:45 White Blood Count 6.3 K/UL (4.8-10.8) Red Blood Count 4.81 M/UL (4.20-5.40) Hemoglobin 14.3 G/DL (12.0-16.0) Hematocrit 42.7 % (37.0-47.0) Mean Corpuscular Volume 89 FL (80-99) Mean Corpuscular Hemoglobin 29.8 PG (27.0-31.0) Mean Corpuscular Hemoglobin Concent 33.6 G/DL (32.0-36.0) Red Cell Distribution Width 12.4 % (11.6-14.8) Platelet Count 222 K/UL (150-450) Mean Platelet Volume 7.5 FL (6.5-10.1) Neutrophils (%) (Auto) 70.7 % (45.0-75.0) Lymphocytes (%) (Auto) 24.3 % (20.0-45.0) Monocytes (%) (Auto) 4.4 % (1.0-10.0) Eosinophils (%) (Auto) 0.1 % (0.0-3.0) Basophils (%) (Auto) 0.5 % (0.0-2.0) Sodium Level Pending Potassium Level Pending Chloride Level Pending Carbon Dioxide Level Pending Blood Urea Nitrogen Pending Creatinine Pending Estimat Glomerular Filtration Rate Pending Glucose Level Pending Calcium Level Pending Magnesium Level Pending Total Bilirubin Pending Aspartate Amino Transf (AST/SGOT) Pending Alanine Aminotransferase (ALT/SGPT) Pending Alkaline Phosphatase Pending Total Protein Pending Albumin Pending Globulin Pending Current Medications Medications (Trade) Dose Ordered Sig/Stefano Route PRN Reason Start Time Stop Time Status Last Admin Dose Admin Acetaminophen (Tylenol) 500 mg Q6H PRN ORAL Mild Pain/Temp > 100.5 02/07/19 12:00 03/09/19 11:59 Acetaminophen/ Hydrocodone Bitart ([place] 5/325) 1 tab Q6H PRN ORAL pain 4-10 02/07/19 12:00 02/14/19 11:59 Amlodipine Besylate (Norvasc) 2.5 mg DAILY ORAL 02/10/19 09:00 03/12/19 08:59 02/13/19 09:18 Amylase/Lipase/ Protease (Zenpep) 1 ea TIPC ORAL 02/09/19 18:00 03/11/19 17:59 02/13/19 09:19 Ascorbic Acid (Vitamin C) 500 mg DAILY ORAL 02/08/19 09:00 03/10/19 08:59 02/13/19 09:19 Dexamethasone Sodium Phosphate (Decadron 4mg/ml vial) 4 mg Q6HR IVP 02/07/19 15:00 03/09/19 14:59 02/13/19 05:50 Dextrose (Dextrose 50%) 25 ml Q30M PRN IV Hypoglycemia 02/07/19 12:15 03/09/19 12:14 Dextrose (Dextrose 50%) 50 ml Q30M PRN IV Hypoglycemia 02/07/19 12:15 03/09/19 12:14 Docusate Sodium (Colace) 100 mg TWICE A DAY ORAL 02/07/19 18:00 03/09/19 17:59 02/13/19 09:19 Duloxetine HCl (Cymbalta) 30 mg DAILY ORAL 02/08/19 09:00 03/10/19 08:59 02/13/19 09:19 Ferrous Sulfate (Feosol) 325 mg DAILY ORAL 02/08/19 09:00 03/10/19 08:59 02/13/19 09:19 Fluconazole (Diflucan) 100 mg DAILY ORAL 02/10/19 10:45 02/17/19 10:44 02/13/19 09:19 Gadobutrol (Gadavist) 7.5 mmol NOW PRN IV Radiology Procedure 02/09/19 11:00 02/13/19 10:46 Insulin Aspart (NovoLOG) BEFORE MEALS AND HS SUBQ 02/07/19 16:30 03/09/19 16:29 02/13/19 05:52 Insulin Detemir (Levemir) 12 units BEDTIME SUBQ 02/07/19 21:00 03/09/19 20:59 02/12/19 20:36 Levetiracetam (Keppra) 1,000 mg Q12HR ORAL 02/12/19 09:00 03/14/19 08:59 02/13/19 09:19 Levothyroxine Sodium (Synthroid) 88 mcg DAILY@0630 ORAL 02/10/19 06:30 03/12/19 06:29 02/13/19 05:50 Lisinopril (Zestril) 10 mg DAILY ORAL 02/10/19 09:00 03/12/19 08:59 02/13/19 09:20 Metformin HCl (Glucophage) 500 mg TID ORAL 02/07/19 18:00 03/09/19 17:59 02/13/19 09:19 Mirtazapine (Remeron) 15 mg BEDTIME ORAL 02/07/19 21:00 03/09/19 20:59 02/12/19 20:35 Pregabalin (Lyrica) 50 mg THREE TIMES A DAY ORAL 02/07/19 18:00 03/09/19 17:59 02/13/19 09:20 Sitagliptin Phosphate (Januvia) 50 mg ACBREAKFAST ORAL 02/09/19 06:30 03/11/19 06:29 02/13/19 05:50 Teodoro Sue MD Feb 13, 2019 10:34
[2019-02-13 10:43] LABS: ALANINE AMINOTRANSFERASE 31 U/L (12-78); ALBUMIN 2.9 G/DL (3.4-5.0); ALKALINE PHOSPHATASE 64 U/L (46-116); ANION GAP 6 mmol/L (5-15); ASPARTATE AMINO TRANSFERASE 26 U/L (15-37); BILIRUBIN,TOTAL 0.2 MG/DL (0.2-1.0); BLOOD UREA NITROGEN 18 mg/dL (7-18); CALCIUM 9.6 MG/DL (8.5-10.1); CARBON DIOXIDE 30 MMOL/L (21-32); CHLORIDE 106 MMOL/L (98-107); CREATININE 0.5 MG/DL (0.55-1.30); POTASSIUM 3.8 MMOL/L (3.5-5.1); SODIUM 142 MMOL/L (136-145)
--- NOTE | 2019-02-13 11:00 | NUR ---
NURSE NOTES: Pt's son Lenin called RN and informed that his mom will cont. care here at [facility] and no more transfer to [facility]. Pt. BIBI and Dr. Armstrong agreed upon. Called and left message to MALCOLM Miramontes. Will cont. to monitor.
--- NOTE | 2019-02-13 11:37 | NUR ---
Social Service Note SW received a message from patient's son Lenin Méndez [phone]. Per son Dr. Armstrong and patient's PCP Dr. Be spoke and patient will continue her medical care at [facility]. Patient will not transfer to [facility]. Upon discharge patient will return to [facility]. MALCOLM will inform CM.
--- NOTE | 2019-02-13 12:07 | NUR ---
CASE MANAGEMENT:REVIEW 02/13/19 SI: SEPSIS. UTI. BRAIN TUMOR/MASS 97.8 54 20 148/66 98% ON RA IS: IVF@100/HR IV DECADRON Q6HRS KEPPRA PO Q12 DIFLUCAN PO QD NORVASC PO QD LISINOPRIL PO QD SYNTHROID PO QD CYMBALTA PO QD : TELEMETRY STATUS DCP: PATIENT IS FROM [facility]
--- NOTE | 2019-02-13 14:17 | NUR ---
ST NOTE: SWALLOW STATUS: SPOKE TO PT'S GRANDDAUGHTER RE: PT'S CONDITIONS, PLAN OF CARE AND MODIFIED BARIUM SWALLOW STUDY AND RECOMMENDATIONS. SHOWED PT'S DAUGHTER RE: MODIFIED BARIUM SWALLOW IMAGES, INDICATED THAT PT HAS MILD OROPHARYNGEAL DYSPHAGIA, ASPIRATION PRECAUTIONS AND DIET RECOMMENDATIONS. OKAY FOR PT'S FAMILY TO GIVE SMALL AMOUNT OF THIN LIQUIDS VIA SPONGE WITH STRICT ASPIRATION PRECAUTIONS. RNNASEEM, AWARE
--- NOTE | 2019-02-13 15:54 | Diagnostic Imaging Report ---
Indications: Reason For Exam: DYSPHAGIA Technique: Patient ingested multiple substances under the supervision of speech pathology. Video fluoroscopic recording performed. Total fluoroscopy time 127.8 seconds. Total dose area product 0.70352 mGycm2 Total number of images-9 Comparison: none Findings: Occasional delay in initiation of deglutition. No evidence of aspiration or penetration demonstrated. No significant residual. Impression: Negative for evidence of aspiration or penetration Please refer to speech pathology report for more detailed analysis.
--- NOTE | 2019-02-13 16:15 | Electroencephalogram ---
DATE OF PROCEDURE: 02/10/2019 REQUESTING PHYSICIAN: Oh Armstrong M.D. READING PHYSICIAN: Sid Acuña M.D. PROCEDURE PERFORMED: Electroencephalogram. HISTORY: This EEG was performed on an 88-year-old lady with a history of brain mass, which was surgically removed. The patient has exhibited seizure-like phenomena and thus this EEG was performed to evaluate the patient for ongoing ictal or interictal phenomena. TECHNICAL NOTE: This EEG was performed on a [employer] with electrodes placed on the scalp according to the international 10-20 system. [id number]-[id number] and vrprt-ao-scy montages were used. The EEG was technically satisfactory and was performed in the awake state. OBSERVATIONS: In the reportedly awake state, the background activity consisted of 7 to 7.5 hertz posterior rhythmic theta activity. Right central parietal polymorphic delta activity was seen throughout the tracing. In addition, runs of rapid sharps and runs of rhythmic sharp and slow wave discharges and in addition, rapid rhythmic fast activity was seen emanating from the C4 and P4 electrodes independently lasting 10 to 40 seconds. IMPRESSION: This is an abnormal EEG characterized by, 1. Slowing of the background in the 7 to 7.5 hertz theta range in the best awake state. 2. The presence of right central parietal polymorphic delta activity. 3. Runs of rapid sharps, rapid sharp and slow waves, and rhythmic fast activity emanating from the C4 and P4 electrodes independently lasting from 10 to 40 seconds at a time. COMMENT: The study is consistent with: 1. An encephalopathy of a [id number]-rq-suquxqhv degree. 2. Focal dysfunction in the right central parietal region. 3. Electrographic seizures emanating from the right central and parietal regions. Clinical correlation is recommended. Sid Acuña M.D. DR: DANIA JOB#: [id number] CC:
--- NOTE | 2019-02-13 19:37 | NUR ---
HAND-OFF: Report given to Yasir Childress RN. Pt. remain stable.
--- NOTE | 2019-02-13 20:19 | NUR ---
NURSE NOTES: RECEIVED PATIENT IN BED. A/O X 2, CONFUSED. ON RA, NO SOB, NO ACUTE DISTRESS. ON CARDIAC MONITORING PER PROTOCOL. R WRIST 20G SALINE LOCK INTACT, PATENT. SIDE RAIL PADDED FOR SEIZURE PRECAUTION. PATIENT IN CALM. BED IN LOWEST POSITION, LOCKED, ALARMS ON. CALL LIGHT IN REACH.
[2019-02-13] MEDS: Levemir Flexpen SUBQ SCH (21:30)
--- NOTE | 2019-02-13 23:30 | Progress Note ---
DATE: 02/13/2019 CARDIOLOGY PROGRESS NOTE SUBJECTIVE: The patient has no new seizures. EEG did reveal seizure activity yesterday and her medication dose was advanced. Monitored rhythm continues to reveal sinus rhythm with paroxysms of atrial fibrillation and episodes of bradycardia in the high 30s and 40s during sleep. OBJECTIVE: VITAL SIGNS: Blood pressure 108/58, pulse 61, respirations 14. LUNGS: Bilateral breath sounds. CARDIAC: Irregularly irregular rhythm. Normal S1, S2. ABDOMEN: Soft. EXTREMITIES: No edema. LABORATORY DATA: White count 6, hemoglobin 14. Potassium 3.8, BUN 18, creatinine 0.5, albumin 2.9. IMPRESSION: 1. Brain tumor. 2. Seizures. 3. Paroxysmal atrial fibrillation. 4. Conduction system disease of the heart. 5. Hypertensive heart disease. 6. Bradyarrhythmias. PLAN: 1. Neuro follow up. 2. Cardiac monitoring. 3. Avoid tight blood pressure control. 4. No emergent indication for pacing at this time especially in view of poor performance status and prognosis. Jimmie Cosby M.D. DR: EN JOB#: [id number] CC:
[2019-02-14 04:00] VITALS: BP 116/76
[2019-02-14] MEDS: Dexamethasone 4mg/ml vial IVP SCH ×2 (05:50→11:43)
[2019-02-14] MEDS: sitaGLIPtin 50mg tab ORAL SCH (05:55)
[2019-02-14] MEDS: NovoLOG Insulin Flexpen SUBQ SCH ×3 (06:10→16:45)
--- NOTE | 2019-02-14 07:15 | NUR ---
NURSE NOTES: I received the patient resting in bed. Patient does not display any signs of distress or SOB. Bed in the lowest position and call light within reach. I will continue to monitor the patient and implement care.
--- NOTE | 2019-02-14 07:31 | NUR ---
HAND-OFF: Report given to Margaret TURNER.
[2019-02-14 08:00] VITALS: BP 92/79
[2019-02-14] MEDS: Lisinopril 10mg tab ORAL SCH (09:00)
[2019-02-14] MEDS: Docusate 100mg cap ORAL SCH ×2 (09:25→17:35)
[2019-02-14] MEDS: DULoxetine 30mg cap ORAL SCH (09:26)
[2019-02-14] MEDS: Fluconazole 100mg tab ORAL SCH (09:26)
[2019-02-14] MEDS: Lyrica 50mg cap ORAL SCH ×3 (09:26→18:02)
[2019-02-14] MEDS: metFORMIN 500mg tab ORAL SCH (09:26)
[2019-02-14] MEDS: Ascorbic Acid 500mg tab ORAL SCH (09:26)
[2019-02-14] MEDS: Pancrelipase Dr Cap ORAL SCH ×3 (09:26→18:02)
--- NOTE | 2019-02-14 10:39 | Infectious Diseases Prog Note ---
Assessment/Plan Assessment/Plan antibiotics : fluconazole A 1. fungal UTI 2. meningioma 3. seizures 4. diabetes mellitus 5. hypertension P 1. continue fluconazole 2 more days 2. will follow up cultures Subjective ROS Limited/Unobtainable: Yes Allergies: Coded Allergies: No Known Allergies (Unverified , 01/20/15) Objective Vital Signs Last 24 Hour Vital Signs Date Time Temp Pulse Resp B/P (MAP) Pulse Ox O2 Delivery O2 Flow Rate FiO2 02/14/19 09:00 Room Air 02/14/19 08:00 54 02/14/19 08:00 97.0 55 20 92/79 (83) 98 02/14/19 04:00 97.0 63 20 116/76 (89) 98 02/14/19 04:00 55 02/14/19 00:00 64 02/13/19 23:51 97.4 77 20 134/79 (97) 100 02/13/19 21:00 Room Air 02/13/19 20:00 97.4 87 20 120/70 (87) 99 02/13/19 20:00 80 02/13/19 16:00 98.1 85 20 105/61 (76) 98 02/13/19 15:43 76 02/13/19 12:01 63 02/13/19 12:00 98.1 60 18 132/69 (90) 94 Height (Feet): 5 Height (Inches): 3.00 Weight (Pounds): 121 Respiratory/Chest: lungs clear Cardiovascular: normal rate, regular rhythm, no gallop/murmur Abdomen: soft, non tender Extremities: no edema Current Medications Medications (Trade) Dose Ordered Sig/Stefano Route PRN Reason Start Time Stop Time Status Last Admin Dose Admin Acetaminophen (Tylenol) 500 mg Q6H PRN ORAL Mild Pain/Temp > 100.5 02/07/19 12:00 03/09/19 11:59 Acetaminophen/ Hydrocodone Bitart (Dane 5/325) 1 tab Q6H PRN ORAL pain 4-10 02/07/19 12:00 02/14/19 11:59 Amlodipine Besylate (Norvasc) 2.5 mg DAILY ORAL 02/10/19 09:00 03/12/19 08:59 02/13/19 09:18 Amylase/Lipase/ Protease (Zenpep) 1 ea TIPC ORAL 02/09/19 18:00 03/11/19 17:59 02/14/19 09:26 Ascorbic Acid (Vitamin C) 500 mg DAILY ORAL 02/08/19 09:00 03/10/19 08:59 02/14/19 09:26 Dexamethasone Sodium Phosphate (Decadron 4mg/ml vial) 4 mg Q6HR IVP 02/07/19 15:00 03/09/19 14:59 02/14/19 05:50 Dextrose (Dextrose 50%) 25 ml Q30M PRN IV Hypoglycemia 02/07/19 12:15 03/09/19 12:14 Dextrose (Dextrose 50%) 50 ml Q30M PRN IV Hypoglycemia 02/07/19 12:15 03/09/19 12:14 Docusate Sodium (Colace) 100 mg TWICE A DAY ORAL 02/07/19 18:00 03/09/19 17:59 02/14/19 09:25 Duloxetine HCl (Cymbalta) 30 mg DAILY ORAL 02/08/19 09:00 03/10/19 08:59 02/14/19 09:26 Ferrous Sulfate (Feosol) 325 mg DAILY ORAL 02/08/19 09:00 03/10/19 08:59 02/14/19 09:26 Fluconazole (Diflucan) 100 mg DAILY ORAL 02/10/19 10:45 02/17/19 10:44 02/14/19 09:26 Insulin Aspart (NovoLOG) BEFORE MEALS AND HS SUBQ 02/07/19 16:30 03/09/19 16:29 02/14/19 06:10 Insulin Detemir (Levemir) 12 units BEDTIME SUBQ 02/07/19 21:00 03/09/19 20:59 02/13/19 21:30 Levetiracetam (Keppra) 500 mg Q6HR ORAL 02/13/19 13:00 03/15/19 12:59 02/14/19 05:55 Levothyroxine Sodium (Synthroid) 88 mcg DAILY@0630 ORAL 02/10/19 06:30 03/12/19 06:29 02/14/19 05:56 Lisinopril (Zestril) 10 mg DAILY ORAL 02/10/19 09:00 03/12/19 08:59 02/13/19 09:20 Metformin HCl (Glucophage) 500 mg TID ORAL 02/07/19 18:00 03/09/19 17:59 02/14/19 09:26 Mirtazapine (Remeron) 15 mg BEDTIME ORAL 02/07/19 21:00 03/09/19 20:59 02/13/19 21:29 Pregabalin (Lyrica) 50 mg THREE TIMES A DAY ORAL 02/07/19 18:00 03/09/19 17:59 02/14/19 09:26 Sitagliptin Phosphate (Januvia) 50 mg ACBREAKFAST ORAL 02/09/19 06:30 03/11/19 06:29 02/14/19 05:55 Teodoro Sue MD Feb 14, 2019 10:39
[2019-02-14 12:00] VITALS: BP 114/68
[2019-02-14] MEDS ORDERED: DEXAMETHAS10 MG/1 M1 IJ (15:14)
[2019-02-14] MEDS ORDERED: FLUCONAZOLE100 MG ORAL (15:15)
[2019-02-14] MEDS ORDERED: KEPPRA500 M4 ORAL (15:15)
[2019-02-14] MEDS ORDERED: METFORMIN500 MG/5 M PO ×2 (15:16→15:21)
[2019-02-14] MEDS ORDERED: LISINOPRIL5 MG ORAL (15:16)
[2019-02-14] MEDS ORDERED: LYRICA20 MG/1 ML ORAL (15:17)
[2019-02-14] MEDS ORDERED: REMERON15 M1 ORAL (15:17)
[2019-02-14] MEDS ORDERED: LISINOPRIL10 MG ORAL (15:21)
[2019-02-14 16:01] VITALS: BP 118/65
--- NOTE | 2019-02-14 16:13 | NUR ---
NURSE NOTES: RN called [facility] and spoke with YUE Hummel. The facility is accepting the patient back to room 58. Report was given to YUE Hummel. RN arranged transportation back to the facility. Telemetry box was removed from the patient. Patient's daughter, Ifrah, was made aware of the patient's transfer back to [facility].
[2019-02-14] MEDS ORDERED: metFORMIN 500mg tab ORAL SCH (18:00)
--- NOTE | 2019-02-14 18:34 | NUR ---
NURSE NOTES: Patient discharged in stable condition. Patient's family at the bedside and aware of patient's transfer to [facility]. Patient's IV removed and the IV site did not display any signs of bleeding or swelling. Patient was in possession of all her belongings. Patient transported via ambulance to [facility]. Patient in stable condition and did not display any signs of distress or SOB.
[2019-02-14] MEDS ORDERED: NS 275ml ONE (18:39)
--- NOTE | 2019-02-14 19:10 | Cardiology Report ---
APPROVED REPORT EKG Measurement Heart [id number] Sinus rhythm with sinus arrhythmia with 1st degree AV block Left axis deviation Low voltage QRS Inferior infarct, age undetermined Anterolateral infarct, age undetermined Abnormal ECG
--- NOTE | 2019-02-14 20:01 | Progress Note ---
DATE: 02/14/2019 SUBJECTIVE: The patient has new seizures, monitored rhythm sinus with paroxysms of atrial fibrillation. Bradycardia at night has been asymptomatic, but and has improved. OBJECTIVE: VITAL SIGNS: Blood pressure ranging from 92/79 to 114/68, heart rate 54 to 75, respiratory rate 20, afebrile. LUNGS: Clear. CARDIAC: Irregularly irregular. Normal S1, S2 with no new murmur. ABDOMEN: Soft and nontender. EXTREMITIES: Without edema. IMPRESSION: 1. Malignant brain tumor with edema and seizure disorder. 2. Breakthrough seizures, now controlled. 3. Type 2 diabetes mellitus. 4. Hypertensive heart disease. 5. Paroxysmal atrial fibrillation. 6. Sinus node disease. PLAN: 1. Stable for detention facility. 2. Medication list has been updated for discharge with consolidation of therapies . 3. Antiseizure regimen will be maintained. 4. Follow up with may be considered although primary neurologist feels no additional treatment options are available. 5. Family members are aware. Jimmie Cosby M.D. DR: ROGELIO JOB#: [id number] CC:
[2019-02-15] MEDS ORDERED: Lisinopril 10mg tab ORAL SCH (09:00)
[2019-02-15] MEDS ORDERED: Fluconazole 100mg tab ORAL SCH (09:00)
--- NOTE | 2019-02-17 11:35 | Discharge Summary ---
Discharge Summary Discharge Summary _ DATE OF ADMISSION: 02/07/2019 DATE OF DISCHARGE: 01/2219 DISCHARGED BY: Dr. Armstrong REASON FOR ADMISSION: 88 years old female with past medical history of diabetes mellitus, HTN, CVA/TIA , brain surgery due to meningioma, was brought by paramedics after seizure episode earlier that morning. Seizure episode was witnessed by nursing staff at the facility. It lasted for about a minute and then resolved. Upon arrival patient was postictal. Patient apparently had a history of seizure disorder, but currently was not on any anti-epileptic medication. No reported fever or chills. Patient apparently had meningioma, which was removed in 2011 at [facility]. Patient was on antiepileptic medication shortly afterwards , which later discontinued. Patient at that time was receiving antibiotics for urinary tract infection. Patient was unable to provide any information. Upon evaluation vital signs were stable. Laboratory work-up revealed no leukocytosis, stable hemoglobin and hematocrit,. Platelet count 145 urinalysis revealed pyuria and few bacteria. Stable electrolytes and renal parameters. Next lactic acid 3.0 9. Glucose 141. Stable LFT 9. Troponin 0.007, pro BNP 156 .EKG revealed normal sinus rhythm no acute ischemic changes Albumin 3.3. Chest x-ray demonstrated diffuse interstitial infiltrates, possibly representing chronic interstitial changes, but mild pulmonary edema and/or pneumonitis could not be completely excluded. CT of the head revealed ill-defined heterogeneous masslike area in the right centrum semi-ovale extending to the vertex with surrounding edema. Further evaluation with MRI was recommended. In the emergency department patient received a loading dose of Keppra. Patient received fluid challenge , pancultured and started on empiric antibiotics. Findings were discussed with son , who was present at the bedside. Patient was subsequently admitted to telemetry floor for further management. CONSULTANTS: hand welt butter Dr. Cosby neurologist Dr. Fischer ID specialist Dr. Sue [facility] COURSE: Patient admitted to telemetry floor. Patient started on maintenance IV hydration. Seizure precautions maintained. Patient started on Keppra. Neurology consult was requested. MRI of the brain revealed 6 x 3.9 x 4.8 cm mass in the parasagittal right posterior parietal region; associated edema and mass-effect noted. Quite possibly recurrent tumor , given location deep to a prior craniotomy. Most likely a meningioma, particularly in the view of the stated clinical history. Old calcified left posterior frontal and right anterior frontal region meningioma as demonstrated on prior CT scan. Old right parietal deep white matter lacunar infarct. EEG was abnormal and consistent with encephalopathy of a mild to moderate degree with focal dysfunction in the right central parietal region. Electrographic seizures emanating from the right central and parietal regions. Neurologist followed. Patient started on steroids. Due to evidence of seizure activity on EEG, Keppra dose was increased to 1000 mg twice daily. Normoglycemia was maintained. Swallow evaluation at the bedside was completed. Diet provided as per speech therapist recommendation with strict aspiration precaution. Neuro-checks were performed every 4 hours. Neurologist recommended neurosurgical consultation regarding possible surgery Infectious disease specialist followed. Blood cultures were negative. Urine culture revealed Bianka. Patient remained afebrile, no leukocytosis. Antibiotic guided as per ID specialist recommendation. Warp Dyeing Vat Tender followed. Venous duplex bilateral lower extremity revealed no evidence of acute DVT. Echocardiogram demonstrated preserved ejection fraction of 55% with no evidence of left ventricular hypertrophy. No evidence of wall motion abnormality. Moderately elevated left atrial pressure grade 2. Patient noted to have paroxysmal atrial fibrillation. No anticoagulation was initiated at this time due to increased risk of bleeding. Patient also noted to have advanced conduction system disease with bradyarrhythmia. Any drugs with negative chronotropic potential were avoided. Antihypertensive medication regimen was titrated to keep blood pressure under control. Patient was continued on maintenance dose of thyroid replacement. Patient did not exhibited symptomatic bradycardia. Per hand welt butter , no class I indication for pacemaker implantation at this time , as the patient was not ambulatory with poor performance status and prognosis. Blood sugar was managed with long-acting Levemir. Sliding scale of insulin was on board as needed. Family initially desired to transfer patient to [facility] , where her primary care provider was. Primary medical doctor at [facility] recommended do not transfer patient to the hospital. Neurosurgeon recommended hospice care Son was aware of this decision. Patient subsequently was transferred to [facility] for continuation of care. Overall prognosis poor. 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 DISCHARGE INSTRUCTIONS: Patient was discharged to the [facility] facility. Follow up with medical doctor at the facility. I have been assigned to dictate discharge summary for this account. I was not involved in the patient's management. Imelda Palacios NP Feb 17, 2019 11:35
== END 2019-02-14 18:40 | DRG 100 ==
LOC: EDBD 06:43 → EMR 06:59 → 2E 07:48 → EDBEDREQ 10:26 → 2E 02-09 19:51
DX: G40.909 Epilepsy, unspecified, not intractable, without status epilepticus (principal); G93.41 Metabolic encephalopathy; E44.1 Mild protein-calorie malnutrition; N39.0 Urinary tract infection, site not specified; I50.32 Chronic diastolic (congestive) heart failure; I69.354 Hemiplegia and hemiparesis following cerebral infarction affecting left non-dominant side; B37.49 Other urogenital candidiasis; E87.2 Acidosis; I11.0 Hypertensive heart disease with heart failure; I48.0 Paroxysmal atrial fibrillation; E11.9 Type 2 diabetes mellitus without complications; D33.2 Benign neoplasm of brain, unspecified; I49.8 Other specified cardiac arrhythmias; E03.9 Hypothyroidism, unspecified; F03.90 Unspecified dementia, unspecified severity, without behavioral disturbance, psychotic disturbance, mood disturbance, and anxiety; Z74.09 Other reduced mobility; Z86.011 Personal history of benign neoplasm of the brain; Z79.4 Long term (current) use of insulin; I25.118 Atherosclerotic heart disease of native coronary artery with other forms of angina pectoris; Z68.21 Body mass index [BMI] 21.0-21.9, adult
CPT/HCPCS: 36415; 36600; 70450; 70553; 71045; 74230; 80053; 80299; 81003; 82550; 82553; 82803; 82962; 83605; 83735; 83880; 84443; 84484; 85025; 85610; 85730; 86850; 86900; 86901; 87040; 87081; 87086; 93005; 93306; 93970; 95819; 96361; 96365; 96368; 96375; 99285; A9585; J1815; S5561

== ENCOUNTER 2019-04-03 23:22 | Inpatient (IN) | payer MEDICARE, OTHER ==
[~2019-04-03] VITALS: Ht 160 cm; Wt 52.0 kg
[~2019-04-03 23:22] MED LIST changes: +AMLODIPINE BES2.5 MG ORAL; +CARVEDILOL3.125 MG ORAL; +CRESTOR10 M2 ORAL; +DEXAMETHAS10 MG/1 M1 IJ; +DULCOLAX10 MG RC; +ERYTHROMYCIN3.5 GM BOTH EYES; +Erythromycin BOTH EYES; +FAMOTIDINE20 MG ORAL; +FLUCONAZOLE100 MG ORAL; +GABAPENTIN100 MG ORAL; +HUMALOG100 UNIT/1 SUBQ; +JANUVIA50 MG ORAL; +KEPPRA500 M4 ORAL; +KLOR-CON 1010 MEQ ORAL; +LEVEMIR FL100 UNIT/1 SUBQ; +LEVOTHYROXINE75 MCG ORAL; +LISINOPRIL10 MG ORAL; +LISINOPRIL5 MG ORAL; +LOVENOX10 M4 SUBQ; +LYRICA20 MG/1 ML ORAL; +MELATONIN1 MG PO; +METFORMIN500 MG/5 M PO; +MILK OF MA400 MG/51 ORAL; +PULMICORT0.5 MG/2 M IH; +REMERON15 M1 ORAL; +SENOKOT8.6 MG PO; +SYNTHROID88 MCG ORAL; +TYLENOL325 MG ORAL
--- NOTE | 2019-04-03 23:22 | NUR ---
ED Nurse Note: pt brought in by Maryjane Fung from [facility] via gurney for AMS and elevated blood sugar level. VSS pt is obtunded, responds to painful stimuli
[2019-04-03 23:25] VITALS: BP 126/70
[2019-04-03 23:49] LABS: BASOPHILS % (AUTO) 0.2 % (0.0-2.0); HEMATOCRIT 38.4 % (37.0-47.0); HEMOGLOBIN 12.9 G/DL (12.0-16.0); LYMPHOCYTES % (AUTO) 23.6 % (20.0-45.0); MEAN CORPUSCULAR VOLUME 92 FL (80-99); MONOCYTES % (AUTO) 2.6 % (1.0-10.0); NEUTROPHILS % (AUTO) 73.7 % (45.0-75.0); PLATELET COUNT 205 K/UL (150-450); RED BLOOD COUNT 4.15 M/UL (4.20-5.40); RED CELL DISTRIBUTION WIDTH 13.9 % (11.6-14.8); WHITE BLOOD COUNT 6.1 K/UL (4.8-10.8)
[2019-04-04 00:02] LABS: APPEARANCE,URINE CLEAR; BILIRUBIN, URINE NEGATIVE (NEGATIVE); COLOR,URINE PALE YELLOW; GLUCOSE, URINE (UA) 4+ (NEGATIVE); KETONES,URINE 3+ (NEGATIVE); LEUKOCYTE ESTERASE ,URINE 1+ (NEGATIVE); NITRITE,URINE NEGATIVE (NEGATIVE); PH,URINE 6 (4.5-8.0); PROTEIN,URINE 1+ (NEGATIVE); UROBILINOGEN,URINE NORMAL MG/DL (0.0-1.0)
[2019-04-04 00:13] LABS: ALANINE AMINOTRANSFERASE 21 U/L (12-78); ALBUMIN/GLOBULIN RATIO 0.6 (1.0-2.7); ALKALINE PHOSPHATASE 92 U/L (46-116); ANION GAP 11 mmol/L (5-15); ASPARTATE AMINO TRANSFERASE 21 U/L (15-37); BILIRUBIN,TOTAL 0.2 MG/DL (0.2-1.0); BLOOD UREA NITROGEN 16 mg/dL (7-18); CALCIUM 8.8 MG/DL (8.5-10.1); CARBON DIOXIDE 24 MMOL/L (21-32); CHLORIDE 107 MMOL/L (98-107); CKMB 1.4 NG/ML (0.0-3.6); CREATINE KINASE 8 U/L (26-308); SODIUM 141 MMOL/L (136-145)
[2019-04-04 00:16] LABS: POTASSIUM 2.7 MMOL/L (3.5-5.1)
--- NOTE | 2019-04-04 00:30 | Diagnostic Imaging Report ---
EXAM: XR Chest, 1 View CLINICAL HISTORY: CP TECHNIQUE: Frontal view of the chest. COMPARISON: 02/07/19. FINDINGS: Lungs: Mild increased hazy opacities in the mid and lower lungs suggestive of edema and/or infiltrate. Pleural space: Mild blunting of the costophrenic angles suggestive of small pleural effusions versus pleural thickening. No definite plain film evidence for pneumothorax. Heart: Mild prominence of the cardiac silhouette. Mediastinum: Unremarkable. Bones/joints: Degenerative changes of the thoracolumbar spine. IMPRESSION: 1. Mild increased hazy opacities in the mid and lower lungs suggestive of edema and/or infiltrate. 2. Mild blunting of the costophrenic angles suggestive of small pleural effusions versus pleural thickening. 3. Mild prominence of the cardiac silhouette.
--- NOTE | 2019-04-04 00:44 | Diagnostic Imaging Report ---
EXAM: CT Head Without Intravenous Contrast CLINICAL HISTORY: [facility] TECHNIQUE: Axial computed tomography images of the head/brain without intravenous contrast. CTDI is 0.15, 70.38 mGy and DLP is 1396 mGy-cm. One or more of the following dose reduction techniques were used: automated exposure control, adjustment of the mA and/or kV according to patient size, use of iterative reconstruction technique. COMPARISON: 02/07/19 FINDINGS: Brain: A mass is again noted in the right parieto-occipital region. The mass appears decreased in size compared to the prior exam, however, this may at least partly be related to differences in technique. Evaluation is limited without IV contrast. Decreased density is seen in the right frontoparietal occipital region adjacent to the mass which is likely related to edema and/or encephalomalacia. This has a similar appearance compared to the prior exam. Cerebral atrophy. Areas of decreased density in the white matter which are nonspecific but are likely related to small vessel ischemic changes. Calcified extra-axial masses are again noted in the frontal regions which have a similar appearance compared to the prior exam and are likely related to meningiomas. No evidence for acute intracranial hemorrhage. Midline shift: There is approximately 3 mm of midline shift towards the left. Ventricles: Unremarkable. Bones/joints: Status post right parieto-occipital craniotomy. No acute fracture. Soft tissues: Unremarkable. Sinuses: Focal areas of mild mucosal thickening in the paranasal sinuses. Mastoid air cells: Unremarkable as visualized. No mastoid effusion. IMPRESSION: 1. A mass is again noted in the right parieto-occipital region. The mass appears decreased in size compared to the prior exam, however, this may at least partly be related to differences in technique. Evaluation is limited without IV contrast. 2. Decreased density is seen in the right frontoparietal occipital region adjacent to the mass which is likely related to edema and/or encephalomalacia. This has a similar appearance compared to the prior exam. 3. Cerebral atrophy with probable small vessel ischemic changes.
[2019-04-04] MEDS ORDERED: Insulin Human Regular 100units/ml 3ml IV ONE (00:45)
[2019-04-04] MEDS ORDERED: cefTRIAXone 1 GM in NS 55 ML IVPB ONE (00:45)
[2019-04-04 01:07] VITALS: BP 122/71
--- NOTE | 2019-04-04 01:21 | Emergency Room Report ---
History of Present Illness General Chief Complaint: Altered Mental Status Source: Family Member, Medical Record Present Illness HPI Patient presents from nursing facility with reports of decreased oral intake increased weakness Patient has had previous meningioma underlying dementia Later on it was also reported that the patient is under hospice care Family reports that over the past several days she has been deteriorating After checking the glucose level today was found to be significantly elevated Family also reports that yesterday she appears to be eating Better than previous and did have ice cream and some fruit They deny any vomiting patient has had recent cough unknown regarding fever Allergies: Coded Allergies: No Known Allergies (Unverified , 01/20/15) Patient History Past Medical History: see triage record Pertinent Family History: none Last Menstrual Period: n/a Reviewed Nursing Documentation: PMH: Agreed; PSxH: Agreed Nursing Documentation-PMH Past Medical History: No History, Except For Hx Cardiac Problems: No Hx Diabetes: Yes Hx Cancer: Yes - Skin Ca on top of head,Bx done Hx Gastrointestinal Problems: No Hx Neurological Problems: Yes - hemangioma Hx Cerebrovascular Accident: Yes - 2011 Hx Seizures: Yes Hx Neurologic Surgery: Yes - Head tumor surgery in 2011 Review of Systems All Other Systems: negative except mentioned in HPI Physical Exam Vital Signs Date Time Temp Pulse Resp B/P (MAP) Pulse Ox O2 Delivery O2 Flow Rate FiO2 04/03/19 23:22 98.2 70 16 108/58 (75) 98 Room Air 04/03/19 23:22 96 Sp02 EP Interpretation: reviewed, normal General Appearance: other - Patient has decreased responsiveness Head: normocephalic, atraumatic Eyes: bilateral eye PERRL ENT: dry mucus membranes Neck: supple Respiratory: no respiratory distress, no retraction, crackles - Bilaterally Cardiovascular #1: regular rate, rhythm Gastrointestinal: non tender, soft Genitourinary: no CVA tenderness Musculoskeletal: other - Patient does not follow commands has very limited responsiveness does respond to physical stimuli, Neurologic: responsive - To physical stimuli Skin: other - Poor skin turgor Lymphatic: no adenopathy Medical Decision Making Diagnostic Impression: Primary Impression: Sepsis Additional Impressions: UTI (lower urinary tract infection) Pneumonia Hypokalemia ER Course Patient is a fairly complex patient with multiple differential to consideration including but not limited to cardiac cardiopulmonary and vascular emergencies Other infectious pathology, neurological neurosurgical pathology entertained as well, Patient's blood work reveals a low potassium level Lactic acid level was also elevated Patient's x-ray shows questionable pneumonia Labs Test 04/03/19 23:23 04/03/19 23:35 04/03/19 23:53 Arterial Blood pH 7.528 (7.350-7.450) Arterial Blood Partial Pressure CO2 23.5 mmHg (35.0-45.0) Arterial Blood Partial Pressure O2 158.5 mmHg (75.0-100.0) Arterial Blood HCO3 19.1 mmol/L (22.0-26.0) Arterial Blood Oxygen Saturation 98.2 % (95-100) Arterial Blood Base Excess -1.9 (-2-2) Bacilio Test Positive White Blood Count 6.1 K/UL (4.8-10.8) Red Blood Count 4.15 M/UL (4.20-5.40) Hemoglobin 12.9 G/DL (12.0-16.0) Hematocrit 38.4 % (37.0-47.0) Mean Corpuscular Volume 92 FL (80-99) Mean Corpuscular Hemoglobin 31.1 PG (27.0-31.0) Mean Corpuscular Hemoglobin Concent 33.7 G/DL (32.0-36.0) Red Cell Distribution Width 13.9 % (11.6-14.8) Platelet Count 205 K/UL (150-450) Mean Platelet Volume 5.4 FL (6.5-10.1) Neutrophils (%) (Auto) 73.7 % (45.0-75.0) Lymphocytes (%) (Auto) 23.6 % (20.0-45.0) Monocytes (%) (Auto) 2.6 % (1.0-10.0) Eosinophils (%) (Auto) 0.0 % (0.0-3.0) Basophils (%) (Auto) 0.2 % (0.0-2.0) Prothrombin Time 10.9 SEC (9.30-11.50) Prothromb Time International Ratio 1.0 (0.9-1.1) Activated Partial Thromboplast Time 23 SEC (23-33) Sodium Level 141 MMOL/L (136-145) Potassium Level 2.7 MMOL/L (3.5-5.1) Chloride Level 107 MMOL/L (98-107) Carbon Dioxide Level 24 MMOL/L (21-32) Anion Gap 11 mmol/L (5-15) Blood Urea Nitrogen 16 mg/dL (7-18) Creatinine 1.0 MG/DL (0.55-1.30) Estimat Glomerular Filtration Rate mL/min (>60) Glucose Level 481 MG/DL (74-106) Lactic Acid Level 4.40 mmol/L (0.4-2.0) Calcium Level 8.8 MG/DL (8.5-10.1) Total Bilirubin 0.2 MG/DL (0.2-1.0) Aspartate Amino Transf (AST/SGOT) 21 U/L (15-37) Alanine Aminotransferase (ALT/SGPT) 21 U/L (12-78) Alkaline Phosphatase 92 U/L (46-116) Total Creatine Kinase 8 U/L (26-308) Creatine Kinase MB 1.4 NG/ML (0.0-3.6) Creatine Kinase MB Relative Index 17.5 Troponin I 0.045 ng/mL (0.000-0.056) Pro-B-Type Natriuretic Peptide 1388 pg/mL (0-125) Total Protein 5.4 G/DL (6.4-8.2) Albumin 2.0 G/DL (3.4-5.0) Globulin 3.4 g/dL Albumin/Globulin Ratio 0.6 (1.0-2.7) Lipase 91 U/L (73-393) Urine Color Pale yellow Urine Appearance Clear Urine pH 6 (4.5-8.0) Urine Specific Claunch 1.010 (1.005-1.035) Urine Protein 1+ (NEGATIVE) Urine Glucose (UA) 4+ (NEGATIVE) Urine Ketones 3+ (NEGATIVE) Urine Blood 2+ (NEGATIVE) Urine Nitrite Negative (NEGATIVE) Urine Bilirubin Negative (NEGATIVE) Urine Urobilinogen Normal MG/DL (0.0-1.0) Urine Leukocyte Esterase 1+ (NEGATIVE) Urine RBC 2-4 /HPF (0 - 2) Urine WBC 5-10 /HPF (0 - 2) Urine Squamous Epithelial Cells Few /LPF (NONE/OCC) Urine Bacteria Few /HPF (NONE) Urine Yeast Few /HPF (NONE) Rhythm Strip Diag. Results EP Interpretation: yes Rate: 77 Rhythm: no PVC's, no ectopy, other - aflutter Chest X-Ray Diagnostic Results Chest X-Ray Diagnostic Results : Chest X-Ray Ordered: Yes # of Views/Limited/Complete: 1 View Indication: Shortness of Breath EP Interpretation: Yes Interpretation: no effusion, no pneumothorax, other - Bilateral markings question infiltrate versus fluid Impression: Other - Bilateral markings consider infiltrate Electronically Signed by: Imelda Jimenez DO CT/MRI/US Diagnostic Results CT/MRI/US Diagnostic Results : Impression CT head similar to previous no acute change Last Vital Signs Date Time Temp Pulse Resp B/P (MAP) Pulse Ox O2 Delivery O2 Flow Rate FiO2 04/04/19 01:07 98.4 91 28 122/71 98 Room Air 04/03/19 23:22 96 Status: improved Disposition: ADMITTED INPATIENT Condition: Serious Referrals: NON PHYSICIAN (PCP) Imelda Jimenez DO Apr 04, 2019 01:21
--- NOTE | 2019-04-04 02:05 | NUR ---
ER DISCHARGE NOTE: pt bought up to tele floor rm [id number] accompanied by RN and aviation technician in stable condition. VSS. report given to nell Garcia RN. Belonging signed ( no belonging) family members bye bedside.
--- NOTE | 2019-04-04 03:00 | NUR ---
NURSE NOTES: Pt arrived from ER via gurney. Got report from Aundrea TURNER. Pt is unresponsive and unable to move in bed. Pt breathing on 3L nasal cannula. Negron catheter in place. No skin issues noted. VS- T:98.2 HR:84 R:16 BP:109/64 O2:100% on 3L nasal cannula. Pt resting in bed comfortably. No s/s of distress or discomfort noted. No facial grimacing or pain noted. Family in room. Family sent updated Code Status of DNR/DNI, copy in the chart. Continue to monitor. Dr. Armstrong paged. Awaiting orders.
[2019-04-04 04:00] VITALS: BP 109/64
--- NOTE | 2019-04-04 07:30 | NUR ---
HAND-OFF: Report given to Bette RN. Endorsed plan of care.
--- NOTE | 2019-04-04 07:49 | NUR ---
NURSE NOTES: Received report from Jefry/RN, Patient is asleep, lying semi-loo, resting comfortably. On 3L nasal canula. No acute distress/SOB noted. Negron catheter draining well to gravity. Families at bedside awaiting on Dr. Armstrong. IV site intact, no bleeding or infiltration noted. Bed in lowest position and locked, Call light and personal belonging within reach. Will continue plan of care.
[2019-04-04 08:00] VITALS: BP 130/64
[2019-04-04] MEDS ORDERED: Acetaminophen 650 MG SUPP RECTAL PRN (10:42)
[2019-04-04] MEDS ORDERED: Sennosides 8.6mg tab ORAL PRN (10:45)
[2019-04-04] MEDS: NovoLOG Insulin Flexpen SUBQ SCH ×3 (11:26→21:44)
--- NOTE | 2019-04-04 11:45 | NUR ---
NURSE NOTES: Patient's blood sugar is 368, supposed to get 12 Units but only 6 Unit is given because patient is NPO.
[2019-04-04 11:47] LABS: BASOPHILS % (AUTO) 0.4 % (0.0-2.0); EOSINOPHILS % (AUTO) 0.1 % (0.0-3.0); HEMATOCRIT 37.5 % (37.0-47.0); HEMOGLOBIN 12.6 G/DL (12.0-16.0); LYMPHOCYTES % (AUTO) 20.1 % (20.0-45.0); MEAN CORPUSCULAR VOLUME 91 FL (80-99); MONOCYTES % (AUTO) 5.4 % (1.0-10.0); NEUTROPHILS % (AUTO) 74.1 % (45.0-75.0); PLATELET COUNT 229 K/UL (150-450); RED BLOOD COUNT 4.12 M/UL (4.20-5.40); RED CELL DISTRIBUTION WIDTH 13.8 % (11.6-14.8); WHITE BLOOD COUNT 6.9 K/UL (4.8-10.8)
[2019-04-04] MEDS: levETIRAcetam 500mg/NS100ml 100 ML IVPB SCH ×2 (11:52→18:32)
[2019-04-04] MEDS: Vancomycin 500mg/D5W 110ml IVPB SCH ×2 (11:53)
[2019-04-04 11:58] LABS: ALANINE AMINOTRANSFERASE 20 U/L (12-78); ALBUMIN/GLOBULIN RATIO 0.6 (1.0-2.7); ALKALINE PHOSPHATASE 80 U/L (46-116); ANION GAP 13 mmol/L (5-15); ASPARTATE AMINO TRANSFERASE 20 U/L (15-37); BILIRUBIN,TOTAL 0.3 MG/DL (0.2-1.0); BLOOD UREA NITROGEN 17 mg/dL (7-18); CALCIUM 8.7 MG/DL (8.5-10.1); CARBON DIOXIDE 23 MMOL/L (21-32); CHLORIDE 109 MMOL/L (98-107); CREATININE 0.5 MG/DL (0.55-1.30); POTASSIUM 3.3 MMOL/L (3.5-5.1); SODIUM 145 MMOL/L (136-145)
[2019-04-04 12:00] VITALS: BP 149/62
--- NOTE | 2019-04-04 13:11 | History & Physical ---
History and Physical History & Physicial seen and examined. Full dictation completed. Yaakov Soto MD Apr 04, 2019 13:11
[2019-04-04] MEDS: Piperacillin/Tazobactam 3.375 GM in NS 110 ML IVPB SCH ×2 (14:03→21:32)
--- NOTE | 2019-04-04 15:26 | Infectious Diseases Prog Note ---
Assessment/Plan Problems: (1) Pneumonia Assessment & Plan: suspect aspiration, continue zosyn and vancomycin for now with aspiration precaution (2) UTI (lower urinary tract infection) Assessment & Plan: already on zosyn , pending urine culture (3) Brain tumor Assessment & Plan: with recurrent meningioma which was resected before, agree on hospice care and comfort measures (4) Sepsis Assessment & Plan: suspect due to the above , continue wide spectrum antibiotics pending blood culture Subjective Allergies: Coded Allergies: No Known Allergies (Unverified , 01/20/15) Objective Vital Signs Last 24 Hour Vital Signs Date Time Temp Pulse Resp B/P (MAP) Pulse Ox O2 Delivery O2 Flow Rate FiO2 04/04/19 12:00 97.5 99 16 149/62 (91) 92 04/04/19 12:00 114 04/04/19 08:00 88 04/04/19 08:00 97.5 99 16 130/64 (86) 99 04/04/19 04:25 Nasal Cannula 3.0 04/04/19 04:01 3.0 04/04/19 04:00 80 04/04/19 04:00 98.0 84 16 109/64 (79) 100 04/04/19 03:30 83 04/04/19 02:05 98.2 102 28 122/76 98 Nasal Cannula 3.0 102 04/04/19 01:07 98.4 91 28 122/71 98 Room Air 04/03/19 23:25 98.2 91 30 126/70 98 Room Air 04/03/19 23:22 74 16 Room Air 96 04/03/19 23:22 98.2 70 16 108/58 (75) 98 Room Air Height (Feet): 5 Height (Inches): 3.00 Weight (Pounds): 115 Laboratory Tests Test 04/03/19 23:23 04/03/19 23:35 04/03/19 23:53 04/04/19 01:33 Arterial Blood pH 7.528 (7.350-7.450) Arterial Blood Partial Pressure CO2 23.5 mmHg (35.0-45.0) *L Arterial Blood Partial Pressure O2 158.5 mmHg (75.0-100.0) H Arterial Blood HCO3 19.1 mmol/L (22.0-26.0) L Arterial Blood Oxygen Saturation 98.2 % (95-100) Arterial Blood Base Excess -1.9 (-2-2) Bacilio Test Positive White Blood Count 6.1 K/UL (4.8-10.8) Red Blood Count 4.15 M/UL (4.20-5.40) L Hemoglobin 12.9 G/DL (12.0-16.0) Hematocrit 38.4 % (37.0-47.0) Mean Corpuscular Volume 92 FL (80-99) Mean Corpuscular Hemoglobin 31.1 PG (27.0-31.0) H Mean Corpuscular Hemoglobin Concent 33.7 G/DL (32.0-36.0) Red Cell Distribution Width 13.9 % (11.6-14.8) Platelet Count 205 K/UL (150-450) Mean Platelet Volume 5.4 FL (6.5-10.1) L Neutrophils (%) (Auto) 73.7 % (45.0-75.0) Lymphocytes (%) (Auto) 23.6 % (20.0-45.0) Monocytes (%) (Auto) 2.6 % (1.0-10.0) Eosinophils (%) (Auto) 0.0 % (0.0-3.0) Basophils (%) (Auto) 0.2 % (0.0-2.0) Prothrombin Time 10.9 SEC (9.30-11.50) Prothromb Time International Ratio 1.0 (0.9-1.1) Activated Partial Thromboplast Time 23 SEC (23-33) Sodium Level 141 MMOL/L (136-145) Potassium Level 2.7 MMOL/L (3.5-5.1) *L Chloride Level 107 MMOL/L (98-107) Carbon Dioxide Level 24 MMOL/L (21-32) Anion Gap 11 mmol/L (5-15) Blood Urea Nitrogen 16 mg/dL (7-18) Creatinine 1.0 MG/DL (0.55-1.30) Estimat Glomerular Filtration Rate mL/min (>60) Glucose Level 481 MG/DL (74-106) H Lactic Acid Level 4.40 mmol/L (0.4-2.0) H 4.00 mmol/L (0.66-2.22) H Calcium Level 8.8 MG/DL (8.5-10.1) Total Bilirubin 0.2 MG/DL (0.2-1.0) Aspartate Amino Transf (AST/SGOT) 21 U/L (15-37) Alanine Aminotransferase (ALT/SGPT) 21 U/L (12-78) Alkaline Phosphatase 92 U/L (46-116) Total Creatine Kinase 8 U/L (26-308) L Creatine Kinase MB 1.4 NG/ML (0.0-3.6) Creatine Kinase MB Relative Index 17.5 Troponin I 0.045 ng/mL (0.000-0.056) Pro-B-Type Natriuretic Peptide 1388 pg/mL (0-125) H Total Protein 5.4 G/DL (6.4-8.2) L Albumin 2.0 G/DL (3.4-5.0) L Globulin 3.4 g/dL Albumin/Globulin Ratio 0.6 (1.0-2.7) L Lipase 91 U/L (73-393) Urine Color Pale yellow Urine Appearance Clear Urine pH 6 (4.5-8.0) Urine Specific Parker 1.010 (1.005-1.035) Urine Protein 1+ (NEGATIVE) H Urine Glucose (UA) 4+ (NEGATIVE) H Urine Ketones 3+ (NEGATIVE) H Urine Blood 2+ (NEGATIVE) H Urine Nitrite Negative (NEGATIVE) Urine Bilirubin Negative (NEGATIVE) Urine Urobilinogen Normal MG/DL (0.0-1.0) Urine Leukocyte Esterase 1+ (NEGATIVE) H Urine RBC 2-4 /HPF (0 - 2) H Urine WBC 5-10 /HPF (0 - 2) H Urine Squamous Epithelial Cells Few /LPF (NONE/OCC) Urine Bacteria Few /HPF (NONE) Urine Yeast Few /HPF (NONE) H Test 04/04/19 10:50 White Blood Count 6.9 K/UL (4.8-10.8) Red Blood Count 4.12 M/UL (4.20-5.40) L Hemoglobin 12.6 G/DL (12.0-16.0) Hematocrit 37.5 % (37.0-47.0) Mean Corpuscular Volume 91 FL (80-99) Mean Corpuscular Hemoglobin 30.5 PG (27.0-31.0) Mean Corpuscular Hemoglobin Concent 33.5 G/DL (32.0-36.0) Red Cell Distribution Width 13.8 % (11.6-14.8) Platelet Count 229 K/UL (150-450) Mean Platelet Volume 5.3 FL (6.5-10.1) L Neutrophils (%) (Auto) 74.1 % (45.0-75.0) Lymphocytes (%) (Auto) 20.1 % (20.0-45.0) Monocytes (%) (Auto) 5.4 % (1.0-10.0) Eosinophils (%) (Auto) 0.1 % (0.0-3.0) Basophils (%) (Auto) 0.4 % (0.0-2.0) Sodium Level 145 MMOL/L (136-145) Potassium Level 3.3 MMOL/L (3.5-5.1) L Chloride Level 109 MMOL/L (98-107) H Carbon Dioxide Level 23 MMOL/L (21-32) Anion Gap 13 mmol/L (5-15) Blood Urea Nitrogen 17 mg/dL (7-18) Creatinine 0.5 MG/DL (0.55-1.30) L Estimat Glomerular Filtration Rate mL/min (>60) Glucose Level 425 MG/DL (74-106) H Hemoglobin A1c 9.9 % (4.3-6.0) H Calcium Level 8.7 MG/DL (8.5-10.1) Total Bilirubin 0.3 MG/DL (0.2-1.0) Aspartate Amino Transf (AST/SGOT) 20 U/L (15-37) Alanine Aminotransferase (ALT/SGPT) 20 U/L (12-78) Alkaline Phosphatase 80 U/L (46-116) Total Protein 5.2 G/DL (6.4-8.2) L Albumin 2.0 G/DL (3.4-5.0) L Globulin 3.2 g/dL Albumin/Globulin Ratio 0.6 (1.0-2.7) L Thyroid Stimulating Hormone (TSH) 0.929 uiU/mL (0.358-3.740) Current Medications Medications (Trade) Dose Ordered Sig/Stefano Route PRN Reason Start Time Stop Time Status Last Admin Dose Admin Acetaminophen (Tylenol) 650 mg Q4H PRN RECTAL Mild Pain (Pain Scale 1-3) 04/04/19 10:42 05/04/19 10:41 Bisacodyl (Dulcolax) 10 mg DAILYPRN PRN RECTAL Constipation 04/04/19 10:45 05/04/19 10:44 Dextrose (Dextrose 50%) 25 ml Q30M PRN IV Hypoglycemia 04/04/19 10:45 05/04/19 10:44 Dextrose (Dextrose 50%) 50 ml Q30M PRN IV Hypoglycemia 04/04/19 10:45 05/04/19 10:44 Insulin Aspart (NovoLOG) BEFORE MEALS AND HS SUBQ 04/04/19 11:30 05/04/19 11:29 04/04/19 11:26 Insulin Detemir (Levemir) 15 units QHS SUBQ 04/04/19 21:00 05/04/19 20:59 Levetiracetam 100 ml @ 400 mls/hr EVERY 6 HOURS IVPB 04/04/19 12:00 05/04/19 11:59 04/04/19 11:52 Ondansetron HCl (Zofran) 4 mg Q4H PRN IVP Nausea & Vomiting 04/04/19 10:45 05/04/19 10:44 Piperacillin Sod/ Tazobactam Sod 3.375 gm/Sodium Chloride 110 ml @ 27.5 mls/hr EVERY 8 HOURS IVPB 04/04/19 14:00 04/09/19 13:59 04/04/19 14:03 Sennosides (Senokot) 8.6 mg BIDPRN PRN ORAL Constipation 04/04/19 10:45 05/04/19 10:44 Sodium Chloride 1,000 ml @ 70 mls/hr [id number] IV 04/04/19 11:29 05/04/19 11:28 04/04/19 11:52 Vancomycin HCl (Vanco rx to dose) 1 ea DAILY MISC 04/05/19 09:00 05/05/19 08:59 Vancomycin HCl 500 mg/Dextrose 110 ml @ 110 mls/hr Q24H IVPB 04/04/19 12:00 04/09/19 11:59 04/04/19 11:53 Mikal Matos M.D. Apr 04, 2019 15:26
[2019-04-04 16:00] VITALS: BP 124/71
--- NOTE | 2019-04-04 16:45 | NUR ---
NURSE NOTES: Patient's blood sugar is 289, supposed to get 8 Units but only 4 Unit is given because patient is NPO.
--- NOTE | 2019-04-04 19:27 | NUR ---
HAND-OFF: Report given to Jefry/YUE, Patient is asleep, No acute distress/SOB noted. patient is in sable condition. Endorsed plan of care.
--- NOTE | 2019-04-04 19:30 | NUR ---
NURSE NOTES: Got report from Bette RN. Pt is resting in bed comfortably. No distress or discomfort noted. No facial grimacing or pain noted. Pt is unresponsive breathing unlabored on 2.5L nasal cannula. Family member in room. Pt on fluids iv line patent. Bed in low and locked position, call light within reach, bedside table within reach. Continue to monitor.
[2019-04-04 20:00] VITALS: BP 110/66
[2019-04-04] MEDS ORDERED: MULTIVITAMINS1 EAC8 ORAL (20:04)
[2019-04-04] MEDS ORDERED: PROTEIN SUPPLEMENT PO (20:09)
[2019-04-04] MEDS ORDERED: NOVOLOG100 UNIT/5 SUBQ (20:21)
[2019-04-04] MEDS ORDERED: METFORMIN HCL500 M1 ORAL (20:33)
[2019-04-04] MEDS ORDERED: DEXAMETHASONE2 MG PO (20:33)
[2019-04-04] MEDS ORDERED: FLEET ENEMA133 ML RECTAL (20:35)
[2019-04-04] MEDS ORDERED: CREON DR 6,0001 EACH PO (20:41)
--- NOTE | 2019-04-04 20:45 | Consultation ---
DATE OF CONSULTATION: 04/04/2019 INFECTIOUS DISEASE CONSULTATION CONSULTING PHYSICIAN: Mikal Matos M.D. REQUESTING PHYSICIAN: Yaakov Soto M.D. REASON FOR CONSULTATION: Pneumonia, urinary tract infection, possible sepsis, recommendation for antibiotics treatment. 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 She was brought in [facility] by her daughter for hypoxemia, shortness of breath, and hyperglycemia with increased weakness. The patient was short of breath yesterday and she was started on oxygen at the [facility], but her oxygen was not turned on as per the daughter. Later on, she was found to have hyperglycemia with blood sugar more than 400. Hospice nurse was called for that high level of blood sugar and she requested transfer to the emergency room. As per daughter, they signed up with hospice care this Saturday due to her brain mass tumor and other comorbidities. At this point, the patient is lethargic, unresponsive. She cannot provide good history. History was mainly obtained from the medical record and nursing staff. In the emergency room, the patient's chest x-ray showed right middle and lower lobe haziness, question pneumonia. Urinalysis showed evidence of infection. The patient was started on vancomycin and Zosyn to cover for sepsis. Infectious disease consultation was requested for antibiotics treatment and further management. REVIEW OF SYSTEMS: A 14-point of system were reviewed, all were negative apart from the one I mentioned above, as per discussion with the daughter. PAST MEDICAL HISTORY: Significant for diabetes, cancer on top of the head, hemangioma, CVA, and seizure disorder. PAST SURGICAL HISTORY: She had meningioma resection and skin cancer, biopsy on the top of her head. SOCIAL HISTORY: She lives [facility]. No recent drugs, tobacco, or alcohol. FAMILY HISTORY: Not contributory. ALLERGIES: No known drug allergy. MEDICATIONS: Currently, she is on vancomycin and Zosyn. For the rest of her medications, please refer to [facility]. LABORATORY AND DIAGNOSTIC DATA: Labs showed white count of 6.9, hemoglobin of 12.6, and platelet count of 229,000. BUN of 17 and creatinine of 0.5. AST of 20 and ALT of 20. Urinalysis showed +1 leukocyte esterase, wbc's 5 to 10, and few yeast. IMAGIN. Chest x-ray showed mild increased hazy opacity in the mid and lower lungs suggestive of edema or infiltrate, mild blunting of the costophrenic angles suggestive of small pleural effusion versus pleural thickening. Mild prominence of the cardiac silhout . 2. Head CT scan showed mass again noted in the right parieto-occipital region, decreased density in the right frontoparietal occipital region, adjacent to the mass, likely related to edema or encephalomalacia. Similar appearance compared to prior exam, cerebellar atrophy with probable small vessel ischemic change. PHYSICAL EXAMINATION: VITAL SIGNS: Temperature 97.5, pulse 99, respirations 16, blood pressure 149/62, and saturation 92% on nasal cannula. GENERAL: Elderly female, lying in bed, lethargic, barely responsive, not in acute distress. Daughter and nephew at the bedside. HEENT: Normocephalic and atraumatic. Pupils reactive to light. Pale sclerae. Unable to assess oral mucosa. NECK: Supple. No lymphadenopathy. CARDIOVASCULAR: Regular rate and rhythm. No murmur or gallop. LUNGS: She had diminished breathing sounds at the bases with crackles. No wheezing or rhonchi can be heard. Normal breathing efforts. ABDOMEN: Soft, nontender, and nondistended. Normal bowel sounds. No hepatosplenomegaly or ascites. EXTREMITY: No edema or cyanosis. SKIN: No rash. No hives. ASSESSMENT AND RECOMMENDATION: 1. Pneumonia, suspect aspiration. Continue Zosyn and vancomycin for now with aspiration precaution. Monitor chest x-ray. 2. Urinary tract infection, already on Zosyn, pending urine culture. 3. Brain tumor with recurrent meningioma, which was resected before. Agree on hospice care and comfort measure as per discussion with the daughter. The patient was already signed up with hospice this week. 4. Sepsis, suspect due to the above. Continue wide-spectrum antibiotics. Pending blood culture. Prognosis overall poor. Discussed with daughter plan of care in detail. 5. Thank you for the consult. ID will continue to follow. Mikal Matos M.D. DR: DAWNA JOB#: [id number] CC: SELVIN
[2019-04-04] MEDS ORDERED: Levemir Flexpen SUBQ SCH (21:00)
--- NOTE | 2019-04-04 21:30 | History and Physical Report ---
DATE OF ADMISSION: 04/04/2019 SOURCE OF INFORMATION: The patient and EMR. HISTORY OF PRESENT ILLNESS: The patient is an 88-year-old Yakut female. The patient initially was brought secondary to not feeling overall well and decreased appetite and weakness. The patient ____ has a brain tumor and is on hospice care at the location of the service. Initial evaluation in the emergency room shows the patient has respiratory rate of about 30 and ____ 105. Initial blood work shows abnormal blood sugar levels with the low serum potassium level. Initial hydration and treatment have been done in the hospital. At the time of evaluation, the patient was very drowsy, limited source of information. REVIEW OF SYSTEMS: Unobtainable. As above. PAST MEDICAL HISTORY: Including diabetes, brain tumor. FAMILY HISTORY: Reviewed and noncontributory. SOCIAL HISTORY: The patient's family lives in [place]. The patient is currently residing in the assisted living. No prior history of alcohol abuse or drug abuse have been noted. MEDICATIONS: Current hospital medications included, but not limited to sliding scale insulin, vancomycin. PAST SURGICAL HISTORY: Unobtainable. CURRENT LABS: Dated April 03, hemoglobin 12.9 and potassium of 3.7. IMAGING: Chest x-ray dated April 03, there is increased in the haziness in the lung. Head CT scan dated April 03 also reviewed showed a mass in the right frontotemporal occipital area. ASSESSMENT: 1. Sepsis, healthcare associated pneumonia. 2. Brain tumor, not a candidate for aggressive management. 3. Hypokalemia. 4. Hyperosmolar nonketotic acidosis. 5. Acute metabolic encephalopathy. 6. Gastrointestinal and DVT prophylaxis. PLAN OF CARE: We will start empiric antibiotic treatment. Infectious Disease consulted. Supplement potassium. Family requested DNR. Yaakov Soto M.D. DR: NAILA JOB#: [id number] CC:
[2019-04-04] MEDS: D5 1/2NS 1,000 ML IV SCH (21:32)
[2019-04-05] VITALS: BP 116/70
[2019-04-05] MEDS: levETIRAcetam 500mg/NS100ml 100 ML IVPB SCH ×4 (00:14→18:57)
--- NOTE | 2019-04-05 03:15 | Consultation ---
DATE OF CONSULTATION: "NOTE: POOR AUDIO QUALITY" ENDOCRINOLOGY CONSULTATION CONSULTING PHYSICIAN: Santana Wood M.D. REFERRING PHYSICIAN: Yaakov Soto M.D. REASON FOR CONSULTATION: I was asked to see this 88-year-old female referred by Dr. Yaakov Soto in Endocrinology consultation for evaluation and management of type 2 diabetes mellitus, uncontrolled. . MEDICATIONS: The patient is on IV Zosyn, Actos q.6 hours with sliding scale NovoLog. . The family request the patient to be DNR. REVIEW OF SYSTEMS: Unable to be determined. PHYSICAL EXAMINATION: GENERAL: The patient is currently in no acute distress. VITAL SIGNS: Blood pressure 130/86, pulse 104, respirations 18, and temperature 98 degrees. HEAD AND NECK: Unremarkable. LUNGS: Clear. HEART: Regular. ABDOMEN: Soft. Bowel sounds present. EXTREMITIES: No edema. NEUROLOGIC: Cranial nerves II through XII are grossly intact with toes downgoing to plantar stimulation. LABORATORY DATA: Blood glucose 129 . ASSESSMENT: Diabetes mellitus, control. . Santana Wood M.D. DR: GREGORIA JOB#: [id number] CC:
[2019-04-05 04:00] VITALS: BP 127/60
[2019-04-05] MEDS: Piperacillin/Tazobactam 3.375 GM in NS 110 ML IVPB SCH ×3 (05:41→21:49)
[2019-04-05] MEDS: NovoLOG Insulin Flexpen SUBQ SCH ×3 (06:07→21:00)
--- NOTE | 2019-04-05 07:30 | NUR ---
HAND-OFF: Report given to Kimberly TURNER. Endorsed plan of care.
[2019-04-05 08:00] VITALS: BP 116/62
--- NOTE | 2019-04-05 08:30 | NUR ---
NURSE NOTES: Pt is in bed resting, PT DNR DNI. Pt on satellite project site monitor no signs of cardiac or respiratory distress. Bed is locked and in lowest position. Call light is within reach. Will continue to monitor and reposition pt every 2hrs.
--- NOTE | 2019-04-05 10:15 | NUR ---
HAND-OFF: Pt daughter called to get updated on mother's condition.
--- NOTE | 2019-04-05 10:20 | NUR ---
NURSE NOTES: Pt. granddaughter called to ask about family condition very anxious to find out about if pt. is opening up her eyes and talking.
[2019-04-05] MEDS: D5 1/2NS 1,000 ML IV SCH (11:03)
[2019-04-05 12:00] VITALS: BP 109/60
[2019-04-05] MEDS: Vancomycin 500mg/D5W 110ml IVPB SCH ×2 (12:39)
--- NOTE | 2019-04-05 13:00 | NUR ---
NURSE NOTES: pt's family members (5 people) keep calling to ask questions about pt. and it is the same questions. Politely asked son to designate 1 person to call so update may be given without pulling me from pt care. Brother agreed with idea, however the rest of the family members are not in agreement. They claim that that is their mother and they will like to get information each time they call.
--- NOTE | 2019-04-05 13:50 | NUR ---
NURSE NOTES: called Dr. Soto to inform that pt's family is all gathered at beside to ask questions.
--- NOTE | 2019-04-05 14:22 | NUR ---
NURSE NOTES: ok to run zosyn together with D5 1/2 ns per Vincent/pharmacist.
[2019-04-05 16:00] VITALS: BP 104/57
--- NOTE | 2019-04-05 19:13 | General Progress Note ---
Assessment/Plan Assessment/Plan: S: Not verbal O: seems comfortable, son at bed side. Not verbal PHYSICAL EXAMINATION:GENERAL: Elderly female, lying in bed, lethargic, barely responsive, not in acute distress. Daughter and nephew at the bedside. HEENT: Normocephalic and atraumatic. Pupils reactive to light. Pale sclerae. Unable to assess oral mucosa.NECK: Supple. No lymphadenopathy. CARDIOVASCULAR: Regular rate and rhythm. No murmur or gallop. LUNGS: She had diminished breathing sounds at the bases with crackles. No wheezing or rhonchi can be heard. Normal breathing efforts. ABDOMEN: Soft, nontender, and nondistended. Normal bowel sounds. No hepatosplenomegaly or ascites.EXTREMITY: No edema or cyanosis. SKIN: No rash. No hives. Meds: reviewed and reconciled ASSESSMENT: 1. Sepsis, healthcare associated pneumonia. 2. Brain tumor, not a candidate for aggressive management. 3. Hypokalemia. 4. Hyperosmolar nonketotic acidosis. 5. Acute metabolic encephalopathy. 6. Gastrointestinal and DVT prophylaxis. Plan: Discussed the care at bed side with the son Agreed to limit lab draw to once daily Better control of diabetis Subjective Allergies: Coded Allergies: No Known Allergies (Unverified , 01/20/15) Objective Last 24 Hour Vital Signs Date Time Temp Pulse Resp B/P (MAP) Pulse Ox O2 Delivery O2 Flow Rate FiO2 04/05/19 16:00 70 04/05/19 16:00 98.0 91 19 104/57 (73) 99 04/05/19 12:00 88 04/05/19 12:00 97.0 86 20 109/60 (76) 99 04/05/19 09:00 Nasal Cannula 2.5 04/05/19 08:00 97.3 81 19 116/62 (80) 100 04/05/19 08:00 81 04/05/19 04:00 88 04/05/19 04:00 97.7 61 18 127/60 (82) 97 04/05/19 00:00 97.6 60 18 116/70 (85) 98 04/05/19 00:00 81 04/04/19 21:00 Nasal Cannula 2.5 04/04/19 20:00 98.0 104 18 110/66 (81) 98 Intake and Output 04/04/19 04/05/19 18:59 06:59 Output Total 400 ml 500 ml Balance -400 ml -500 ml Output Urine Total 400 ml 500 ml # Bowel Movements 1 1 Height (Feet): 5 Height (Inches): 3.00 Weight (Pounds): 115 Yaakov Soto MD Apr 05, 2019 19:13
--- NOTE | 2019-04-05 19:30 | NUR ---
NURSE NOTES: per Doctor TOMASZ Gonzalez Pt is NPO. order case management consult because pt. family needs to have a clear idea of what hospice can do for pt. Also continue insuline on the lowest scale, and keep D5 1/2 Ns running at 70ml/hr.
--- NOTE | 2019-04-05 19:58 | NUR ---
NURSE NOTES: Pt labs should only be done once per day at 9am per family request and Doctor's Menazvani order endorsed that to charge nurse and night nurse Jimmie.
[2019-04-05 20:00] VITALS: BP 98/52
--- NOTE | 2019-04-05 20:00 | NUR ---
HAND-OFF: Report given Jimmie/RN, pt in stable condition.
--- NOTE | 2019-04-05 20:00 | NUR ---
NURSE NOTES: Report received from YUE Harris. Observed pt lying in bed. A/O x1. A-Fib with HR of 100s noted. On 2L NC with no sob. Abd soft and round. F/C intact and draining well. IV on R W 20G running D5 1/2 NS at 75cc/hr. Bed in the lowest position. Side rails up x3. Will continue to monitor.
--- NOTE | 2019-04-05 20:28 | NUR ---
HAND-OFF: Report given to Gabrielle/RN pt DNR/ DNI pt is in stable condition. Endorsed to RN pt to only have labs drawn at 9am, no other labs to be drawn at all;This is to KEEP pt. as comfortable as possible.
--- NOTE | 2019-04-05 22:59 | Infectious Diseases Prog Note ---
Assessment/Plan Problems: (1) Pneumonia Assessment & Plan: suspect aspiration, continue zosyn and vancomycin for now with aspiration precaution (2) UTI (lower urinary tract infection) Assessment & Plan: already on zosyn , pending urine culture (3) Brain tumor Assessment & Plan: with recurrent meningioma which was resected before, agree on hospice care and comfort measures (4) Sepsis Assessment & Plan: suspect due to the above , continue wide spectrum antibiotics pending blood culture Subjective ROS Limited/Unobtainable: Yes Allergies: Coded Allergies: No Known Allergies (Unverified , 01/20/15) Subjective she was lying in bed, comfortable, unresponsive, afebrile, nephew at bedside Objective Vital Signs Last 24 Hour Vital Signs Date Time Temp Pulse Resp B/P (MAP) Pulse Ox O2 Delivery O2 Flow Rate FiO2 04/05/19 16:00 70 04/05/19 16:00 98.0 91 19 104/57 (73) 99 04/05/19 12:00 88 04/05/19 12:00 97.0 86 20 109/60 (76) 99 04/05/19 09:00 Nasal Cannula 2.5 04/05/19 08:00 97.3 81 19 116/62 (80) 100 04/05/19 08:00 81 04/05/19 04:00 88 04/05/19 04:00 97.7 61 18 127/60 (82) 97 04/05/19 00:00 97.6 60 18 116/70 (85) 98 04/05/19 00:00 81 Height (Feet): 5 Height (Inches): 3.00 Weight (Pounds): 115 General Appearance: no acute distress, cachetic HEENT: normocephalic, atraumatic, anicteric, mucous membranes moist, supple, no JVD Respiratory/Chest: chest wall non-tender, no respiratory distress, no accessory muscle use, decreased breath sounds, crackles/rales Cardiovascular: normal peripheral pulses, normal rate, regular rhythm, no gallop/murmur, no JVD Abdomen: normal bowel sounds, soft, non tender, no organomegaly, non distended , no mass, no scars Extremities: no cyanosis, no clubbing Skin: no rash, no lesions Neurologic/Psychiatric: unresponsiveness Lymphatic: no neck adenopathy, no groin adenopathy Musculoskeletal: normal muscle bulk, no effusion Microbiology Date/Time Source Procedure Growth Status 04/03/19 23:40 Blood Blood Culture - Preliminary NO GROWTH AFTER 24 HOURS Resulted 04/03/19 23:25 Blood Blood Culture - Preliminary NO GROWTH AFTER 24 HOURS Resulted 04/03/19 23:53 Urine,Clean Catch Urine Culture - Preliminary NO GROWTH AFTER 24 HOURS Resulted Current Medications Medications (Trade) Dose Ordered Sig/Stefano Route PRN Reason Start Time Stop Time Status Last Admin Dose Admin Acetaminophen (Tylenol) 650 mg Q4H PRN RECTAL Mild Pain (Pain Scale 1-3) 04/04/19 10:42 05/04/19 10:41 Bisacodyl (Dulcolax) 10 mg DAILYPRN PRN RECTAL Constipation 04/04/19 10:45 05/04/19 10:44 Dextrose (Dextrose 50%) 25 ml Q30M PRN IV Hypoglycemia 04/05/19 17:15 05/05/19 17:14 Dextrose (Dextrose 50%) 50 ml Q30M PRN IV Hypoglycemia 04/05/19 17:15 05/05/19 17:14 Dextrose/Sodium Chloride 1,000 ml @ 70 mls/hr [id number] IV 04/04/19 20:45 05/04/19 20:44 04/04/19 21:32 Insulin Aspart (NovoLOG) BEFORE MEALS AND HS SUBQ 04/05/19 21:00 05/05/19 20:59 Levetiracetam 100 ml @ 400 mls/hr EVERY 6 HOURS IVPB 04/04/19 12:00 05/04/19 11:59 04/05/19 18:57 Ondansetron HCl (Zofran) 4 mg Q4H PRN IVP Nausea & Vomiting 04/04/19 10:45 05/04/19 10:44 Piperacillin Sod/ Tazobactam Sod 3.375 gm/Sodium Chloride 110 ml @ 27.5 mls/hr EVERY 8 HOURS IVPB 04/04/19 14:00 04/09/19 13:59 04/05/19 21:49 Sennosides (Senokot) 8.6 mg BIDPRN PRN ORAL Constipation 04/04/19 10:45 05/04/19 10:44 Vancomycin HCl (Vanco rx to dose) 1 ea DAILY MISC 04/05/19 09:00 05/05/19 08:59 Vancomycin HCl 500 mg/Dextrose 110 ml @ 110 mls/hr Q24H IVPB 04/04/19 12:00 04/09/19 11:59 04/05/19 12:39 Mikal Matos M.D. Apr 05, 2019 22:59
[2019-04-06] VITALS: BP 102/54
--- NOTE | 2019-04-06 | NUR ---
NURSE NOTES: Observed pt sleeping in the bed. Afib with HR of 70s noted. No signs of pain. On O2 2L N with no SOB. IVF going at R W, asymptomatic. Reposition done. Will continue to monitor.
[2019-04-06] MEDS: D5 1/2NS 1,000 ML IV SCH ×2 (00:32→15:56)
[2019-04-06] MEDS: levETIRAcetam 500mg/NS100ml 100 ML IVPB SCH ×4 (00:33→17:59)
--- NOTE | 2019-04-06 03:30 | Geriatric Medicine Prog Note ---
DATE: 04/05/2019 NOTE: POOR AUDIO. SUBJECTIVE: The patient currently complains of . The patient is currently responsive, comfortable on mL/hr. OBJECTIVE: VITAL SIGNS: Blood pressure 104/57, pulse 91, respiratory rate 19, and temperature 98. RESPIRATORY: Clear. CARDIOVASCULAR: Regular. stable to . ____ continued the patient hospice DNR/DNI status. Santana Wood M.D. DR: RASHEED JOB#: [id number] CC:
[2019-04-06 04:00] VITALS: BP 92/55
[2019-04-06] MEDS: Piperacillin/Tazobactam 3.375 GM in NS 110 ML IVPB SCH ×3 (05:13→22:50)
[2019-04-06] MEDS: NovoLOG Insulin Flexpen SUBQ SCH ×4 (06:30→23:00)
--- NOTE | 2019-04-06 06:41 | General Progress Note ---
Assessment/Plan Problem List: (1) Brain tumor ICD Codes: D49.6 - Neoplasm of unspecified behavior of brain SNOMED: 218642553 (2) Lactic acidosis ICD Codes: E87.2 - Acidosis SNOMED: 65597937 (3) History of meningioma of the brain ICD Codes: Z86.011 - Personal history of benign neoplasm of the brain SNOMED: 525787786 (4) Encephalopathy due to metabolic factor or toxin SNOMED: 604117372 (5) Hypokalemia ICD Codes: E87.6 - Hypokalemia SNOMED: 65392447 (6) Pneumonia ICD Codes: J18.9 - Pneumonia, unspecified organism SNOMED: 816915143 (7) UTI (lower urinary tract infection) ICD Codes: N39.0 - Urinary tract infection, site not specified SNOMED: 2866820 (8) Hypothyroid ICD Codes: E03.9 - Hypothyroidism, unspecified SNOMED: 06836107 Assessment/Plan: glucose values are stable no need for scheduled insulin dose continue NISS ac / hs Subjective ROS Limited/Unobtainable: Yes Allergies: Coded Allergies: No Known Allergies (Unverified , 01/20/15) Subjective events noted glucose values stable without hypoglycemia Item Value Date Time Bedside Blood Glucose 96 mg/dl 04/05/19 2100 Bedside Blood Glucose 111 mg/dl 04/05/19 1630 Bedside Blood Glucose 120 mg/dl 04/05/19 1130 Bedside Blood Glucose 170 mg/dl H 04/05/19 0615 Objective Last 24 Hour Vital Signs Date Time Temp Pulse Resp B/P (MAP) Pulse Ox O2 Delivery O2 Flow Rate FiO2 04/06/19 04:00 68 04/06/19 04:00 98.3 86 18 92/55 (67) 98 04/06/19 00:00 98.0 68 16 102/54 (70) 100 04/06/19 00:00 56 04/05/19 21:00 Nasal Cannula 2.5 04/05/19 20:00 97.8 73 15 98/52 (67) 100 04/05/19 20:00 82 04/05/19 16:00 70 04/05/19 16:00 98.0 91 19 104/57 (73) 99 04/05/19 12:00 88 04/05/19 12:00 97.0 86 20 109/60 (76) 99 04/05/19 09:00 Nasal Cannula 2.5 04/05/19 08:00 97.3 81 19 116/62 (80) 100 04/05/19 08:00 81 Intake and Output 04/05/19 04/06/19 19:00 07:00 Intake Total 70 ml 980.0 ml Output Total 375 ml 600 ml Balance -305 ml 380.0 ml IV Total 70 ml 980.0 ml Output Urine Total 375 ml 600 ml # Voids 1 # Bowel Movements 1 Height (Feet): 5 Height (Inches): 3.00 Weight (Pounds): 115 General Appearance: lethargic EENT: pale conjunctivae Neck: normal alignment Cardiovascular: bradycardia Respiratory/Chest: decreased breath sounds Abdomen: normal bowel sounds Pelvis: normal external exam Objective Current Medications Medications (Trade) Dose Ordered Sig/Stefano Route PRN Reason Start Time Stop Time Status Last Admin Dose Admin Acetaminophen (Tylenol) 650 mg Q4H PRN RECTAL Mild Pain (Pain Scale 1-3) 04/04/19 10:42 05/04/19 10:41 Bisacodyl (Dulcolax) 10 mg DAILYPRN PRN RECTAL Constipation 04/04/19 10:45 05/04/19 10:44 Dextrose (Dextrose 50%) 25 ml Q30M PRN IV Hypoglycemia 04/05/19 17:15 05/05/19 17:14 Dextrose (Dextrose 50%) 50 ml Q30M PRN IV Hypoglycemia 04/05/19 17:15 05/05/19 17:14 Dextrose/Sodium Chloride 1,000 ml @ 70 mls/hr [id number] IV 04/04/19 20:45 05/04/19 20:44 04/06/19 00:32 Insulin Aspart (NovoLOG) BEFORE MEALS AND HS SUBQ 04/05/19 21:00 05/05/19 20:59 Levetiracetam 100 ml @ 400 mls/hr EVERY 6 HOURS IVPB 04/04/19 12:00 05/04/19 11:59 04/06/19 05:04 Ondansetron HCl (Zofran) 4 mg Q4H PRN IVP Nausea & Vomiting 04/04/19 10:45 05/04/19 10:44 Piperacillin Sod/ Tazobactam Sod 3.375 gm/Sodium Chloride 110 ml @ 27.5 mls/hr EVERY 8 HOURS IVPB 04/04/19 14:00 04/09/19 13:59 04/06/19 05:13 Sennosides (Senokot) 8.6 mg BIDPRN PRN ORAL Constipation 04/04/19 10:45 05/04/19 10:44 Vancomycin HCl (Vanco rx to dose) 1 ea DAILY MISC 04/05/19 09:00 05/05/19 08:59 Vancomycin HCl 500 mg/Dextrose 110 ml @ 110 mls/hr Q24H IVPB 04/04/19 12:00 04/09/19 11:59 04/05/19 12:39 Christian Cruz MD Apr 06, 2019 06:41
--- NOTE | 2019-04-06 07:37 | NUR ---
HAND-OFF: Report given to YUE Marrero. No acute distress noted at this time.
--- NOTE | 2019-04-06 07:55 | NUR ---
NURSE NOTES: Received report from YUE Samuel. Patient in bed resting, no active s/s cardiac, respiratory distress noticed at this time. Patient AOx1, open eyes on light touch, patient on 2.5 oxygen via NC. Negron Catheter draining well to gravity. IV on right wrist 20G, asymptomatic, patent, intact, IV fluid running as prescribed rate. Bed in lowest position, side rails upx2, call light within reach. Will continue to monitor.
[2019-04-06 08:00] VITALS: BP 92/43
[2019-04-06 10:20] LABS: EOSINOPHILS % (AUTO) 0.4 % (0.0-3.0); HEMATOCRIT 34.7 % (37.0-47.0); HEMOGLOBIN 11.6 G/DL (12.0-16.0); LYMPHOCYTES % (AUTO) 32.3 % (20.0-45.0); MEAN CORPUSCULAR VOLUME 93 FL (80-99); NEUTROPHILS % (AUTO) 61.4 % (45.0-75.0); PLATELET COUNT 167 K/UL (150-450); RED BLOOD COUNT 3.74 M/UL (4.20-5.40); RED CELL DISTRIBUTION WIDTH 13.9 % (11.6-14.8); WHITE BLOOD COUNT 6.9 K/UL (4.8-10.8)
[2019-04-06 10:30] LABS: ALANINE AMINOTRANSFERASE 20 U/L (12-78); ALBUMIN 1.5 G/DL (3.4-5.0); ALBUMIN/GLOBULIN RATIO 0.7 (1.0-2.7); ALKALINE PHOSPHATASE 70 U/L (46-116); ANION GAP 6 mmol/L (5-15); ASPARTATE AMINO TRANSFERASE 33 U/L (15-37); BILIRUBIN,TOTAL 0.4 MG/DL (0.2-1.0); BLOOD UREA NITROGEN 9 mg/dL (7-18); CALCIUM 7.7 MG/DL (8.5-10.1); CARBON DIOXIDE 29 MMOL/L (21-32); CHLORIDE 109 MMOL/L (98-107); CREATININE 0.4 MG/DL (0.55-1.30); SODIUM 143 MMOL/L (136-145)
--- NOTE | 2019-04-06 10:30 | General Progress Note ---
Assessment/Plan Assessment/Plan: S: Not verbal O: seems comfortable, son at bed side. Not verbal PHYSICAL EXAMINATION:GENERAL: Elderly female, lying in bed, lethargic, barely responsive, not in acute distress. Daughter and nephew at the bedside. HEENT: Normocephalic and atraumatic. Pupils reactive to light. Pale sclerae. Unable to assess oral mucosa.NECK: Supple. No lymphadenopathy. CARDIOVASCULAR: Regular rate and rhythm. No murmur or gallop. LUNGS: She had diminished breathing sounds at the bases with crackles. No wheezing or rhonchi can be heard. Normal breathing efforts. ABDOMEN: Soft, nontender, and nondistended. Normal bowel sounds. No hepatosplenomegaly or ascites.EXTREMITY: No edema or cyanosis. SKIN: No rash. No hives. Meds: reviewed and reconciled Labs: dated April 06 are pending ASSESSMENT: 1. Sepsis, healthcare associated pneumonia. 2. Brain tumor, not a candidate for aggressive management. 3. Hypokalemia. 4. Hyperosmolar nonketotic acidosis. 5. Acute metabolic encephalopathy. 6. Gastrointestinal and DVT prophylaxis. Plan: Discussed the care at bed side with the son, yesterday Agreed to limit lab draw to once daily Better control of diabetes VRE colonized of the rectum Subjective Allergies: Coded Allergies: No Known Allergies (Unverified , 01/20/15) Objective Last 24 Hour Vital Signs Date Time Temp Pulse Resp B/P (MAP) Pulse Ox O2 Delivery O2 Flow Rate FiO2 04/06/19 09:00 Nasal Cannula 2.5 04/06/19 08:00 72 04/06/19 08:00 97.0 78 22 92/43 (59) 100 04/06/19 04:00 68 04/06/19 04:00 98.3 86 18 92/55 (67) 98 04/06/19 00:00 98.0 68 16 102/54 (70) 100 04/06/19 00:00 56 04/05/19 21:00 Nasal Cannula 2.5 04/05/19 20:00 97.8 73 15 98/52 (67) 100 04/05/19 20:00 82 04/05/19 16:00 70 04/05/19 16:00 98.0 91 19 104/57 (73) 99 04/05/19 12:00 88 04/05/19 12:00 97.0 86 20 109/60 (76) 99 Intake and Output 04/05/19 04/06/19 19:00 07:00 Intake Total 70 ml 980.0 ml Output Total 375 ml 600 ml Balance -305 ml 380.0 ml IV Total 70 ml 980.0 ml Output Urine Total 375 ml 600 ml # Voids 1 # Bowel Movements 1 Laboratory Tests 04/06/19 09:00: White Blood Count 6.9, Red Blood Count 3.74L, Hemoglobin 11.6L, Hematocrit 34.7L , Mean Corpuscular Volume 93, Mean Corpuscular Hemoglobin 30.9, Mean Corpuscular Hemoglobin Concent 33.4, Red Cell Distribution Width 13.9, Platelet Count 167, Mean Platelet Volume 5.5L, Neutrophils (%) (Auto) 61.4, Lymphocytes ( %) (Auto) 32.3, Monocytes (%) (Auto) 5.0, Eosinophils (%) (Auto) 0.4, Basophils (%) (Auto) 1.0, Sodium Level [Pending], Potassium Level [Pending], Chloride Level [Pending], Carbon Dioxide Level [Pending], Blood Urea Nitrogen [Pending], Creatinine [Pending], Estimat Glomerular Filtration Rate [Pending], Glucose Level [Pending], Calcium Level [Pending], Total Bilirubin [Pending], Aspartate Amino Transf (AST/SGOT) [Pending], Alanine Aminotransferase (ALT/SGPT) [Pending] , Alkaline Phosphatase [Pending], Total Protein [Pending], Albumin [Pending], Globulin [Pending] Height (Feet): 5 Height (Inches): 3.00 Weight (Pounds): 115 Yaakov Soto MD Apr 06, 2019 10:30
[2019-04-06 10:31] LABS: POTASSIUM 2.6 MMOL/L (3.5-5.1)
--- NOTE | 2019-04-06 10:38 | NUR ---
NURSE NOTES: Dr. Soto made aware of K level of 2.6 today. No order given at this time. Will continue to monitor.
--- NOTE | 2019-04-06 11:05 | NUR ---
NURSE NOTES: Called Dr. Soto second time for K level, per Dr. Soto, 40 mEq KCl now once, and 6 hour later 20 mEq KCl. Order noted, entered, carried out. Will continue to monitor.
--- NOTE | 2019-04-06 11:06 | NUR ---
NURSE NOTES: Per Dr. Brittany MD consult with Dr. Davis and inform Dr. Davis for K level today. Order noted, entered, carried out.
[2019-04-06 12:00] VITALS: BP 96/55
--- NOTE | 2019-04-06 12:00 | NUR ---
NURSE NOTES: Dr. Davis made aware of K level today. Per Dr. Davis continue order as Dr. Soto ordered, and check K level before 20 mEq KCl. Order noted, entered, carried out. Will continue to monitor.
[2019-04-06] MEDS: Vancomycin 500mg/D5W 110ml IVPB SCH ×2 (12:03)
--- NOTE | 2019-04-06 12:43 | NUR ---
Brand DirectorLeveler 88 Y/O Female ALISA from [facility] CC: Altered mental status, BS too high SI: Pneumonia, encephalopathy VS: BP: 108/58 HR: 70 RR 16 02 Sat 99% (RA) T: 98.2 NT: Mean platelet 5.4 Urine erythrocy 2+ UR RBC 2-4 UR WBC 5-10 UR Yeast Few Potassium 2.7 Glucose Random 481 Creatine Kinase 8 Total Protein 5.4 Albumin 2.0 NT-proBNP 1388 Lactic Acid 4.40 Arterial blood 7.528; 23.5; 158.5; 19.1 CT Head: Mass in E-ihathnj-xeyqjwubj region, decreased density in R-frontoparietal occipital region to the mass which is likely related to edema and/or encephalomalacia. Cerebral atrophy with probably small vessel ischemic changes. CXR: Mild increased hazy opacities in the mid and lower lungs suggestive of edema and/or infiltrate. Mild blunting of the costophrenic angles suggestive of small pleural effusions versus pleural thickening. Mild prominence of the cardiac silhouette. IS: NS 1000ml cefTRIAXone KCl NovoLIN R Admitted to Telemetry Telemetry status DCP: Pending Hospital Stay
--- NOTE | 2019-04-06 15:48 | Infectious Diseases Prog Note ---
Assessment/Plan Problems: (1) Pneumonia Assessment & Plan: suspect aspiration, continue zosyn and vancomycin for now with aspiration precaution (2) UTI (lower urinary tract infection) Assessment & Plan: already on zosyn , pending urine culture (3) Brain tumor Assessment & Plan: with recurrent meningioma which was resected before, agree on hospice care and comfort measures (4) Sepsis Assessment & Plan: suspect due to the above , continue wide spectrum antibiotics pending blood culture Subjective ROS Limited/Unobtainable: Yes Allergies: Coded Allergies: No Known Allergies (Unverified , 01/20/15) Subjective she was lying in bed, comfortable, unresponsive, afebrile, nephew at bedside Objective Vital Signs Last 24 Hour Vital Signs Date Time Temp Pulse Resp B/P (MAP) Pulse Ox O2 Delivery O2 Flow Rate FiO2 04/06/19 12:00 97.0 76 22 96/55 (69) 97 04/06/19 12:00 61 04/06/19 09:00 Nasal Cannula 2.5 04/06/19 08:00 72 04/06/19 08:00 97.0 78 22 92/43 (59) 100 04/06/19 04:00 68 04/06/19 04:00 98.3 86 18 92/55 (67) 98 04/06/19 00:00 98.0 68 16 102/54 (70) 100 04/06/19 00:00 56 04/05/19 21:00 Nasal Cannula 2.5 04/05/19 20:00 97.8 73 15 98/52 (67) 100 04/05/19 20:00 82 04/05/19 16:00 70 04/05/19 16:00 98.0 91 19 104/57 (73) 99 Height (Feet): 5 Height (Inches): 3.00 Weight (Pounds): 115 General Appearance: no acute distress, cachetic HEENT: normocephalic, atraumatic, anicteric, mucous membranes moist, PERRL Respiratory/Chest: chest wall non-tender, no respiratory distress, no accessory muscle use, decreased breath sounds, crackles/rales Cardiovascular: normal peripheral pulses, normal rate, regular rhythm, no gallop/murmur, no JVD Abdomen: normal bowel sounds, soft, non tender, no organomegaly, non distended , no mass, no scars Genitourinary: normal external genitalia Extremities: no cyanosis, no clubbing Skin: no rash, no lesions Neurologic/Psychiatric: alert, unresponsiveness Lymphatic: no neck adenopathy, no groin adenopathy Musculoskeletal: normal muscle bulk, no effusion Microbiology Date/Time Source Procedure Growth Status 04/04/19 11:25 Blood Blood Culture - Preliminary NO GROWTH AFTER 24 HOURS Resulted 04/04/19 10:50 Blood Blood Culture - Preliminary NO GROWTH AFTER 24 HOURS Resulted 04/03/19 23:40 Blood Blood Culture - Preliminary NO GROWTH AFTER 48 HOURS Resulted 04/03/19 23:25 Blood Blood Culture - Preliminary NO GROWTH AFTER 48 HOURS Resulted 04/04/19 01:15 Nasal Nares MRSA Culture - Final NO METHICILLIN RESISTANT STAPH AUREUS... Complete 04/03/19 23:53 Urine,Clean Catch Urine Culture - Preliminary Resulted 04/04/19 01:15 Rectum VRE Culture - Final Enterococcus Faecalis - Vre Complete Laboratory Tests Test 04/06/19 09:00 White Blood Count 6.9 K/UL (4.8-10.8) Red Blood Count 3.74 M/UL (4.20-5.40) L Hemoglobin 11.6 G/DL (12.0-16.0) L Hematocrit 34.7 % (37.0-47.0) L Mean Corpuscular Volume 93 FL (80-99) Mean Corpuscular Hemoglobin 30.9 PG (27.0-31.0) Mean Corpuscular Hemoglobin Concent 33.4 G/DL (32.0-36.0) Red Cell Distribution Width 13.9 % (11.6-14.8) Platelet Count 167 K/UL (150-450) Mean Platelet Volume 5.5 FL (6.5-10.1) L Neutrophils (%) (Auto) 61.4 % (45.0-75.0) Lymphocytes (%) (Auto) 32.3 % (20.0-45.0) Monocytes (%) (Auto) 5.0 % (1.0-10.0) Eosinophils (%) (Auto) 0.4 % (0.0-3.0) Basophils (%) (Auto) 1.0 % (0.0-2.0) Sodium Level 143 MMOL/L (136-145) Potassium Level 2.6 MMOL/L (3.5-5.1) *L Chloride Level 109 MMOL/L (98-107) H Carbon Dioxide Level 29 MMOL/L (21-32) Anion Gap 6 mmol/L (5-15) Blood Urea Nitrogen 9 mg/dL (7-18) Creatinine 0.4 MG/DL (0.55-1.30) L Estimat Glomerular Filtration Rate mL/min (>60) Glucose Level 153 MG/DL (74-106) H Calcium Level 7.7 MG/DL (8.5-10.1) L Total Bilirubin 0.4 MG/DL (0.2-1.0) Aspartate Amino Transf (AST/SGOT) 33 U/L (15-37) Alanine Aminotransferase (ALT/SGPT) 20 U/L (12-78) Alkaline Phosphatase 70 U/L (46-116) Total Protein 3.8 G/DL (6.4-8.2) L Albumin 1.5 G/DL (3.4-5.0) L Globulin 2.3 g/dL Albumin/Globulin Ratio 0.7 (1.0-2.7) L Current Medications Medications (Trade) Dose Ordered Sig/Stefano Route PRN Reason Start Time Stop Time Status Last Admin Dose Admin Acetaminophen (Tylenol) 650 mg Q4H PRN RECTAL Mild Pain (Pain Scale 1-3) 04/04/19 10:42 05/04/19 10:41 Bisacodyl (Dulcolax) 10 mg DAILYPRN PRN RECTAL Constipation 04/04/19 10:45 05/04/19 10:44 Dextrose (Dextrose 50%) 25 ml Q30M PRN IV Hypoglycemia 04/05/19 17:15 05/05/19 17:14 Dextrose (Dextrose 50%) 50 ml Q30M PRN IV Hypoglycemia 04/05/19 17:15 05/05/19 17:14 Dextrose/Sodium Chloride 1,000 ml @ 70 mls/hr [id number] IV 04/04/19 20:45 05/04/19 20:44 04/06/19 00:32 Insulin Aspart (NovoLOG) BEFORE MEALS AND HS SUBQ 04/05/19 21:00 05/05/19 20:59 Levetiracetam 100 ml @ 400 mls/hr EVERY 6 HOURS IVPB 04/04/19 12:00 05/04/19 11:59 04/06/19 12:48 Ondansetron HCl (Zofran) 4 mg Q4H PRN IVP Nausea & Vomiting 04/04/19 10:45 05/04/19 10:44 Piperacillin Sod/ Tazobactam Sod 3.375 gm/Sodium Chloride 110 ml @ 27.5 mls/hr EVERY 8 HOURS IVPB 04/04/19 14:00 04/09/19 13:59 04/06/19 14:13 Potassium Chloride 100 ml @ 100 mls/hr Q1HR IVPB 04/06/19 12:00 04/06/19 15:59 04/06/19 14:13 Sennosides (Senokot) 8.6 mg BIDPRN PRN ORAL Constipation 04/04/19 10:45 05/04/19 10:44 Vancomycin HCl (Vanco rx to dose) 1 ea DAILY PRN MISC . 04/06/19 09:45 05/05/19 08:59 Vancomycin HCl 500 mg/Dextrose 110 ml @ 110 mls/hr Q24H IVPB 04/04/19 12:00 04/09/19 11:59 04/06/19 12:03 Mikal Matos M.D. Apr 06, 2019 15:48
[2019-04-06 16:00] VITALS: BP 101/62
--- NOTE | 2019-04-06 18:10 | NUR ---
NURSE NOTES: Dr. Davis made aware patient's family member strongly disagree drawing lab, only allow once a daily at 0900. Per Dr. Davis okay to administer 20 mEq without lab. Order noted, entered, carried out. Will continue to monitor.
--- NOTE | 2019-04-06 19:45 | Consultation ---
DATE OF CONSULTATION: 04/06/2019 CONSULTING PHYSICIAN: Robert Davis M.D. REFERRING PHYSICIAN: Yaakov Soto M.D. REASON FOR CONSULTATION: Hypokalemia. HISTORY OF PRESENT ILLNESS: The patient is a pleasant 88-year-old [place] female who was admitted two days prior for further evaluation and care of deconditioning, decreased appetite and weakness. Noted to be hypokalemic with a potassium level of 2.6, creatinine 0.4. The patient is resting comfortably, in no overt distress. No nausea, vomiting, or diarrhea. The patient does have a known brain tumor and is on hospice comfort care service. PAST MEDICAL HISTORY: 1. Diabetes. 2. Brain tumor. PAST SURGICAL HISTORY: Unknown. FAMILY HISTORY: Noncontributory. SOCIAL HISTORY: The patient lives in [place] in assisted living facility. No tobacco, alcohol, or illicit drug use. REVIEW OF SYSTEMS: Cannot obtain as the patient is resting comfortably and does not speak Liberian. PHYSICAL EXAMINATION: VITAL SIGNS: Blood pressure 92/43, respiratory rate 22, pulse 72, and temperature 97. GENERAL: The patient is somnolent, but arousable, in no overt distress. HEENT: Extraocular muscles intact. No lymphadenopathy noted. Oropharyngeal mucosa is clear and dry. CARDIOVASCULAR: S1, S2. No rubs or gallops. PULMONARY: Mild upper rhonchi. Fair air movement in all perrin. ABDOMEN: Nondistended and nontender. EXTREMITIES: No edema. LABORATORY DATA: Labs dated April 06, 2019, sodium 143, potassium 2.6, creatinine 0.4. Albumin 1.5. Calcium 7.7. White cell count 6.9, hemoglobin 11.6, and platelet count 167,000. ASSESSMENT AND PLAN: 1. Hypokalemia secondary to poor oral nutrition intake. At this time, agree with potassium supplementation. We will check magnesium and phosphorus in the morning after 40 mEq IV given. We will recheck potassium and give another 20 IV if necessary. 2. Diabetes mellitus. Continue home dose insulin with insulin sliding scale. 3. Deconditioned. Hospice care due to brain tumor. We will check magnesium and phosphorus and replace electrolytes as deemed appropriate. Robert Davis MD DR: HERI JOB#: [id number] CC:
--- NOTE | 2019-04-06 19:47 | NUR ---
HAND-OFF: Report given to YUE Mora.
--- NOTE | 2019-04-06 19:50 | NUR ---
NURSE NOTES: Received report from YUE Marrero. Patient in bed asleep showing no signs of acute distress. Respiration even and non labored on 2.5L NC O2. No sob noted. IV on Right wrist 20g running D5 0.45NS @70ml/hr, patent and intact. Negron patent, intact and draining. HOB elevated 45deg. Seizure precaution observed, Side rails padded, side rails up x2. Call light within reach. Bed in lowest position, wheels locked and alarm on. All needs attended and met. Will continue plan of care.
[2019-04-06 20:00] VITALS: BP 113/88
[2019-04-07] VITALS: BP 143/79
[2019-04-07 04:00] VITALS: BP 116/79
[2019-04-07] MEDS: Piperacillin/Tazobactam 3.375 GM in NS 110 ML IVPB SCH ×3 (05:09→22:00)
[2019-04-07] MEDS: levETIRAcetam 500mg/NS100ml 100 ML IVPB SCH ×4 (05:09→17:49)
[2019-04-07] MEDS: D5 1/2NS 1,000 ML IV SCH ×2 (05:11→10:38)
[2019-04-07] MEDS: NovoLOG Insulin Flexpen SUBQ SCH ×4 (05:38→21:00)
--- NOTE | 2019-04-07 05:55 | General Progress Note ---
Assessment/Plan Problem List: (1) Brain tumor ICD Codes: D49.6 - Neoplasm of unspecified behavior of brain SNOMED: 303222394 (2) Lactic acidosis ICD Codes: E87.2 - Acidosis SNOMED: 74980294 (3) History of meningioma of the brain ICD Codes: Z86.011 - Personal history of benign neoplasm of the brain SNOMED: 659261437 (4) Encephalopathy due to metabolic factor or toxin SNOMED: 354627309 (5) Hypokalemia ICD Codes: E87.6 - Hypokalemia SNOMED: 16450719 (6) Pneumonia ICD Codes: J18.9 - Pneumonia, unspecified organism SNOMED: 937875592 (7) UTI (lower urinary tract infection) ICD Codes: N39.0 - Urinary tract infection, site not specified SNOMED: 9202817 (8) Hypothyroid ICD Codes: E03.9 - Hypothyroidism, unspecified SNOMED: 67331736 Assessment/Plan: tight glycemic control is NOT indicated no need for scheduled insulin dose continue NISS ac / hs hypoglycemia protocol in order discussed with RN Subjective ROS Limited/Unobtainable: Yes Allergies: Coded Allergies: No Known Allergies (Unverified , 01/20/15) Subjective events noted glucose values are fairly stable without hypoglycemia Item Value Date Time Bedside Blood Glucose 138 mg/dl H 04/07/19 0538 Bedside Blood Glucose 219 mg/dl H 04/06/19 2300 Bedside Blood Glucose 219 mg/dl H 04/06/19 2100 Bedside Blood Glucose 171 mg/dl H 04/06/19 1630 Bedside Blood Glucose 150 mg/dl H 04/06/19 1130 Objective Last 24 Hour Vital Signs Date Time Temp Pulse Resp B/P (MAP) Pulse Ox O2 Delivery O2 Flow Rate FiO2 04/07/19 04:00 97.4 60 18 116/79 (91) 100 04/07/19 04:00 84 04/07/19 00:00 97.2 77 18 143/79 (100) 99 04/07/19 00:00 88 04/06/19 21:00 Nasal Cannula 2.5 04/06/19 20:00 98.0 66 18 113/88 (96) 98 04/06/19 20:00 73 04/06/19 16:00 80 04/06/19 16:00 97.1 89 21 101/62 (75) 94 04/06/19 12:00 97.0 76 22 96/55 (69) 97 04/06/19 12:00 61 04/06/19 09:00 Nasal Cannula 2.5 04/06/19 08:00 72 04/06/19 08:00 97.0 78 22 92/43 (59) 100 Intake and Output 04/06/19 04/07/19 19:00 07:00 Output Total 200 ml Balance -200 ml Output Urine Total 200 ml Laboratory Tests 04/06/19 09:00: White Blood Count 6.9, Red Blood Count 3.74L, Hemoglobin 11.6L, Hematocrit 34.7L , Mean Corpuscular Volume 93, Mean Corpuscular Hemoglobin 30.9, Mean Corpuscular Hemoglobin Concent 33.4, Red Cell Distribution Width 13.9, Platelet Count 167, Mean Platelet Volume 5.5L, Neutrophils (%) (Auto) 61.4, Lymphocytes ( %) (Auto) 32.3, Monocytes (%) (Auto) 5.0, Eosinophils (%) (Auto) 0.4, Basophils (%) (Auto) 1.0, Sodium Level 143, Potassium Level 2.6*L, Chloride Level 109H, Carbon Dioxide Level 29, Anion Gap 6, Blood Urea Nitrogen 9, Creatinine 0.4L, Estimat Glomerular Filtration Rate , Glucose Level 153H, Calcium Level 7.7L, Total Bilirubin 0.4, Aspartate Amino Transf (AST/SGOT) 33, Alanine Aminotransferase (ALT/SGPT) 20, Alkaline Phosphatase 70, Total Protein 3.8L, Albumin 1.5L, Globulin 2.3, Albumin/Globulin Ratio 0.7L Height (Feet): 5 Height (Inches): 3.00 Weight (Pounds): 115 General Appearance: lethargic Neck: normal alignment Cardiovascular: normal rate Respiratory/Chest: decreased breath sounds Abdomen: normal bowel sounds Pelvis: normal external exam Edema: 1+ Arm (L), 1+ Arm (R), 1+ Leg (L), 1+ Leg (R), 1+ Pedal (L), 1+ Pedal ( R), 1+ Generalized Objective Current Medications Medications (Trade) Dose Ordered Sig/Stefano Route PRN Reason Start Time Stop Time Status Last Admin Dose Admin Acetaminophen (Tylenol) 650 mg Q4H PRN RECTAL Mild Pain (Pain Scale 1-3) 04/04/19 10:42 05/04/19 10:41 Bisacodyl (Dulcolax) 10 mg DAILYPRN PRN RECTAL Constipation 04/04/19 10:45 05/04/19 10:44 Dextrose (Dextrose 50%) 25 ml Q30M PRN IV Hypoglycemia 04/05/19 17:15 05/05/19 17:14 Dextrose (Dextrose 50%) 50 ml Q30M PRN IV Hypoglycemia 04/05/19 17:15 05/05/19 17:14 Dextrose/Sodium Chloride 1,000 ml @ 70 mls/hr [id number] IV 04/04/19 20:45 05/04/19 20:44 04/06/19 15:56 Insulin Aspart (NovoLOG) BEFORE MEALS AND HS SUBQ 04/05/19 21:00 05/05/19 20:59 04/06/19 23:00 Levetiracetam 100 ml @ 400 mls/hr EVERY 6 HOURS IVPB 04/04/19 12:00 05/04/19 11:59 04/07/19 05:09 Ondansetron HCl (Zofran) 4 mg Q4H PRN IVP Nausea & Vomiting 04/04/19 10:45 05/04/19 10:44 Piperacillin Sod/ Tazobactam Sod 3.375 gm/Sodium Chloride 110 ml @ 27.5 mls/hr EVERY 8 HOURS IVPB 04/04/19 14:00 04/09/19 13:59 04/07/19 05:09 Sennosides (Senokot) 8.6 mg BIDPRN PRN ORAL Constipation 04/04/19 10:45 05/04/19 10:44 Vancomycin HCl (Vanco rx to dose) 1 ea DAILY PRN MISC . 04/06/19 09:45 05/05/19 08:59 Vancomycin HCl 500 mg/Dextrose 110 ml @ 110 mls/hr Q24H IVPB 04/04/19 12:00 04/09/19 11:59 04/06/19 12:03 Christian Cruz MD Apr 07, 2019 05:55
--- NOTE | 2019-04-07 07:05 | NUR ---
NURSE NOTES: Received report from YUE Mora. Patient is in bed asleep. Respiration are even and non labored on 2.5L NC O2. IV on Right wrist 20g running D5 0.45NS @70ml/hr, patent and intact. Negron patent, intact and draining. HOB elevated 45deg. Seizure precaution observed, Side rails padded, side rails up x2. Call light within reach. Bed in lowest position, wheels locked and alarm on. Will continue plan of care.
--- NOTE | 2019-04-07 07:16 | NUR ---
HAND-OFF: Report given to YUE Tatum.
[2019-04-07 08:00] VITALS: BP 110/53
--- NOTE | 2019-04-07 08:31 | Nephrology Progress Note ---
Assessment/Plan Assessment/Plan: A/P 1) Hypokalemia- replaced yesterday - AM labs pending post replacement yesterday 2) Brain Tumor- hospice Subjective Date patient seen: Apr 07, 2019 Time patient seen: 08:27 ROS Limited/Unobtainable: No Allergies: Coded Allergies: No Known Allergies (Unverified , 01/20/15) Subjective Patient resting, somnolent but arousable Objective Last 24 Hour Vital Signs Date Time Temp Pulse Resp B/P (MAP) Pulse Ox O2 Delivery O2 Flow Rate FiO2 04/07/19 08:00 96.8 78 18 110/53 (72) 100 04/07/19 04:00 97.4 60 18 116/79 (91) 100 04/07/19 04:00 84 04/07/19 00:00 97.2 77 18 143/79 (100) 99 04/07/19 00:00 88 04/06/19 21:00 Nasal Cannula 2.5 04/06/19 20:00 98.0 66 18 113/88 (96) 98 04/06/19 20:00 73 04/06/19 16:00 80 04/06/19 16:00 97.1 89 21 101/62 (75) 94 04/06/19 12:00 97.0 76 22 96/55 (69) 97 04/06/19 12:00 61 04/06/19 09:00 Nasal Cannula 2.5 Intake and Output 04/06/19 04/07/19 19:00 07:00 Output Total 200 ml Balance -200 ml Output Urine Total 200 ml Laboratory Tests 04/06/19 09:00: White Blood Count 6.9, Red Blood Count 3.74L, Hemoglobin 11.6L, Hematocrit 34.7L , Mean Corpuscular Volume 93, Mean Corpuscular Hemoglobin 30.9, Mean Corpuscular Hemoglobin Concent 33.4, Red Cell Distribution Width 13.9, Platelet Count 167, Mean Platelet Volume 5.5L, Neutrophils (%) (Auto) 61.4, Lymphocytes ( %) (Auto) 32.3, Monocytes (%) (Auto) 5.0, Eosinophils (%) (Auto) 0.4, Basophils (%) (Auto) 1.0, Sodium Level 143, Potassium Level 2.6*L, Chloride Level 109H, Carbon Dioxide Level 29, Anion Gap 6, Blood Urea Nitrogen 9, Creatinine 0.4L, Estimat Glomerular Filtration Rate , Glucose Level 153H, Calcium Level 7.7L, Total Bilirubin 0.4, Aspartate Amino Transf (AST/SGOT) 33, Alanine Aminotransferase (ALT/SGPT) 20, Alkaline Phosphatase 70, Total Protein 3.8L, Albumin 1.5L, Globulin 2.3, Albumin/Globulin Ratio 0.7L Height (Feet): 5 Height (Inches): 3.00 Weight (Pounds): 115 General Appearance: no apparent distress EENT: normal ENT inspection Neck: normal alignment Cardiovascular: normal rate, regular rhythm Respiratory/Chest: lungs clear Abdomen: non tender, soft Edema: no edema noted Arm (L), no edema noted Arm (R), no edema noted Leg (L), no edema noted Leg (R), no edema noted Pedal (L), no edema noted Pedal (R), no edema noted Generalized Robert Davis MD Apr 07, 2019 08:31
[2019-04-07 09:19] LABS: ALANINE AMINOTRANSFERASE 16 U/L (12-78); ALBUMIN 1.5 G/DL (3.4-5.0); ALBUMIN/GLOBULIN RATIO 0.5 (1.0-2.7); ALKALINE PHOSPHATASE 81 U/L (46-116); ANION GAP 6 mmol/L (5-15); ASPARTATE AMINO TRANSFERASE 28 U/L (15-37); BILIRUBIN,TOTAL 0.5 MG/DL (0.2-1.0); BLOOD UREA NITROGEN 5 mg/dL (7-18); CALCIUM 7.8 MG/DL (8.5-10.1); CARBON DIOXIDE 27 MMOL/L (21-32); CHLORIDE 106 MMOL/L (98-107); CREATININE 0.4 MG/DL (0.55-1.30); PHOSPHORUS 1.9 MG/DL (2.5-4.9); POTASSIUM 3.1 MMOL/L (3.5-5.1); SODIUM 139 MMOL/L (136-145)
[2019-04-07 09:22] LABS: BASOPHILS % (AUTO) 1.2 % (0.0-2.0); EOSINOPHILS % (AUTO) 0.8 % (0.0-3.0); HEMATOCRIT 36.3 % (37.0-47.0); HEMOGLOBIN 12.5 G/DL (12.0-16.0); LYMPHOCYTES % (AUTO) 32.4 % (20.0-45.0); MEAN CORPUSCULAR VOLUME 92 FL (80-99); MONOCYTES % (AUTO) 3.7 % (1.0-10.0); NEUTROPHILS % (AUTO) 61.9 % (45.0-75.0); PLATELET COUNT 148 K/UL (150-450); RED BLOOD COUNT 3.94 M/UL (4.20-5.40); RED CELL DISTRIBUTION WIDTH 13.8 % (11.6-14.8); WHITE BLOOD COUNT 6.6 K/UL (4.8-10.8)
--- NOTE | 2019-04-07 10:16 | General Progress Note ---
Assessment/Plan Assessment/Plan: S: Not verbal O: seems comfortable, son at bed side. Not verbal PHYSICAL EXAMINATION:GENERAL: Elderly female, lying in bed, lethargic, barely responsive, not in acute distress. Daughter and nephew at the bedside. HEENT: Normocephalic and atraumatic. Pupils reactive to light. Pale sclerae. Unable to assess oral mucosa.NECK: Supple. No lymphadenopathy. CARDIOVASCULAR: Regular rate and rhythm. No murmur or gallop. LUNGS: She had diminished breathing sounds at the bases with crackles. No wheezing or rhonchi can be heard. Normal breathing efforts. ABDOMEN: Soft, nontender, and nondistended. Normal bowel sounds. No hepatosplenomegaly or ascites.EXTREMITY: No edema or cyanosis. SKIN: No rash. No hives. Meds: reviewed and reconciled Labs: dated April 06 are pending ASSESSMENT: 1. Sepsis, healthcare associated pneumonia. 2. Brain tumor, not a candidate for aggressive management. 3. Hypokalemia. 4. Hyperosmolar nonketotic acidosis. 5. Acute metabolic encephalopathy. 6. Gastrointestinal and DVT prophylaxis. Plan: Discussed the care at bed side with the son, over the phone last night Agreed to limit lab draw to once daily Better control of diabetes VRE colonized of the rectum consulted Nephrology Subjective Allergies: Coded Allergies: No Known Allergies (Unverified , 01/20/15) Objective Last 24 Hour Vital Signs Date Time Temp Pulse Resp B/P (MAP) Pulse Ox O2 Delivery O2 Flow Rate FiO2 04/07/19 09:00 Nasal Cannula 2.5 04/07/19 08:00 96.8 78 18 110/53 (72) 100 04/07/19 04:00 97.4 60 18 116/79 (91) 100 04/07/19 04:00 84 04/07/19 00:00 97.2 77 18 143/79 (100) 99 04/07/19 00:00 88 04/06/19 21:00 Nasal Cannula 2.5 04/06/19 20:00 98.0 66 18 113/88 (96) 98 04/06/19 20:00 73 04/06/19 16:00 80 04/06/19 16:00 97.1 89 21 101/62 (75) 94 04/06/19 12:00 97.0 76 22 96/55 (69) 97 8/12/19 12:00 61 Intake and Output 04/06/19 04/07/19 19:00 07:00 Output Total 200 ml Balance -200 ml Output Urine Total 200 ml Laboratory Tests 04/07/19 08:45: White Blood Count 6.6, Red Blood Count 3.94L, Hemoglobin 12.5, Hematocrit 36.3L , Mean Corpuscular Volume 92, Mean Corpuscular Hemoglobin 31.7H, Mean Corpuscular Hemoglobin Concent 34.3, Red Cell Distribution Width 13.8, Platelet Count 148L, Mean Platelet Volume 4.9L, Neutrophils (%) (Auto) 61.9, Lymphocytes (%) (Auto) 32.4, Monocytes (%) (Auto) 3.7, Eosinophils (%) (Auto) 0.8, Basophils (%) (Auto) 1.2, Sodium Level 139, Potassium Level 3.1L, Chloride Level 106, Carbon Dioxide Level 27, Anion Gap 6, Blood Urea Nitrogen 5L, Creatinine 0.4L, Estimat Glomerular Filtration Rate , Glucose Level 151H, Calcium Level 7.8L, Phosphorus Level 1.9L, Magnesium Level 1.4L, Total Bilirubin 0.5, Aspartate Amino Transf (AST/SGOT) 28, Alanine Aminotransferase ( ALT/SGPT) 16, Alkaline Phosphatase 81, Total Protein 4.3L, Albumin 1.5L, Globulin 2.8, Albumin/Globulin Ratio 0.5L Height (Feet): 5 Height (Inches): 3.00 Weight (Pounds): 115 Yaakov Soto MD Apr 07, 2019 10:16
[2019-04-07 12:00] VITALS: BP 118/75
[2019-04-07] MEDS: Vancomycin 500mg/D5W 110ml IVPB SCH ×2 (12:00)
[2019-04-07] MEDS ORDERED: Potassium Phosphate 20 MM in NS 275 ML IV SCH (12:00)
--- NOTE | 2019-04-07 13:00 | NUR ---
NURSE NOTES: Patient IV on right wrist was leaking. IV was removed. Notified Dr. Soto about the need of IV access. Dr. Soto spoke with family. Dr. Soto spoke to the daughter. The doctor discussed about the posibility of picc line or other care. Will follow up.
--- NOTE | 2019-04-07 13:40 | NUR ---
NURSE NOTES: Dr. Soto is aware about patient loss of IV access. Spoke with pharmacy about medications not given for loss of IV access.
--- NOTE | 2019-04-07 14:39 | NUR ---
NURSE NOTES: DR GEIGER CALLED AND RECEIVED ORDER TO CM CONSULT FOR COMFORT CARE AND TRANSITION T ASSISTED LIVING WITH HOSPICE CARE AND NO BLOOD WORKS.
--- NOTE | 2019-04-07 14:49 | NUR ---
CELL ROOM OPERATOR NOTES SPOKE WITH IVAN FROM [facility], PT ACCEPTED TO ROOM 16 BED B. AWAITING OFFICIAL DC ORDER.
--- NOTE | 2019-04-07 15:00 | NUR ---
NURSE NOTES: Spoke to Dr. Soto. Possible discharge to facility tomorrow if family agrees.
[2019-04-07 16:00] VITALS: BP 114/54
--- NOTE | 2019-04-07 19:10 | NUR ---
HAND-OFF: Report given to YUE Mora. A daughter states they want PICC Line placement. States to talk with her brother.
--- NOTE | 2019-04-07 19:15 | NUR ---
NURSE NOTES: Received report from YUE Tatum. Patient in bed asleep showing no signs of acute distress. Respiration even and non labored on 2.5L NC O2. No sob noted. No IV noted, MD aware. Spoke with the son and daughter, and agreed for an attempt to insert IV by someone well experienced with IV insertion. Negron patent, intact and draining. HOB elevated 45deg for aspiration precaution. Seizure precaution observed, Side rails padded, side rails up x2. Call light within reach. Bed in lowest position, wheels locked and alarm on. All needs attended and met. Will continue plan of care.
[2019-04-07 20:00] VITALS: BP 125/64
--- NOTE | 2019-04-07 21:24 | Infectious Diseases Prog Note ---
Assessment/Plan Problems: (1) Pneumonia Assessment & Plan: suspect aspiration, continue zosyn and vancomycin for now with aspiration precaution (2) UTI (lower urinary tract infection) Assessment & Plan: culture grew small colony of yeast , most likely contaminants. (3) Brain tumor Assessment & Plan: with recurrent meningioma which was resected before, agree on hospice care and comfort measures (4) Sepsis Assessment & Plan: suspect due to the above , continue wide spectrum antibiotics pending blood culture Subjective ROS Limited/Unobtainable: Yes Allergies: Coded Allergies: No Known Allergies (Unverified , 01/20/15) Subjective she was lying in bed, comfortable, unresponsive, afebrile, nephew at bedside Objective Vital Signs Last 24 Hour Vital Signs Date Time Temp Pulse Resp B/P (MAP) Pulse Ox O2 Delivery O2 Flow Rate FiO2 04/07/19 20:00 98.1 73 16 125/64 (84) 100 04/07/19 16:00 98.6 64 18 114/54 (74) 100 04/07/19 15:09 48 04/07/19 12:31 63 04/07/19 12:00 98.3 71 18 118/75 (89) 100 04/07/19 09:00 Nasal Cannula 2.5 04/07/19 08:00 96.8 78 18 110/53 (72) 100 04/07/19 07:59 81 04/07/19 04:00 97.4 60 18 116/79 (91) 100 04/07/19 04:00 84 04/07/19 00:00 97.2 77 18 143/79 (100) 99 04/07/19 00:00 88 Height (Feet): 5 Height (Inches): 3.00 Weight (Pounds): 115 General Appearance: WD/WN, no acute distress HEENT: normocephalic, atraumatic, anicteric, mucous membranes moist Respiratory/Chest: chest wall non-tender, no respiratory distress, no accessory muscle use, decreased breath sounds, crackles/rales Cardiovascular: normal peripheral pulses, normal rate, regular rhythm, no gallop/murmur, no JVD Abdomen: normal bowel sounds, soft, non tender, no organomegaly, non distended , no mass, no scars Genitourinary: normal external genitalia Extremities: no cyanosis, no clubbing Skin: no rash, no lesions Neurologic/Psychiatric: alert, unresponsiveness Lymphatic: no neck adenopathy, no groin adenopathy Musculoskeletal: normal muscle bulk, no effusion Laboratory Tests Test 04/07/19 08:45 04/07/19 11:00 White Blood Count 6.6 K/UL (4.8-10.8) Red Blood Count 3.94 M/UL (4.20-5.40) L Hemoglobin 12.5 G/DL (12.0-16.0) Hematocrit 36.3 % (37.0-47.0) L Mean Corpuscular Volume 92 FL (80-99) Mean Corpuscular Hemoglobin 31.7 PG (27.0-31.0) H Mean Corpuscular Hemoglobin Concent 34.3 G/DL (32.0-36.0) Red Cell Distribution Width 13.8 % (11.6-14.8) Platelet Count 148 K/UL (150-450) L Mean Platelet Volume 4.9 FL (6.5-10.1) L Neutrophils (%) (Auto) 61.9 % (45.0-75.0) Lymphocytes (%) (Auto) 32.4 % (20.0-45.0) Monocytes (%) (Auto) 3.7 % (1.0-10.0) Eosinophils (%) (Auto) 0.8 % (0.0-3.0) Basophils (%) (Auto) 1.2 % (0.0-2.0) Sodium Level 139 MMOL/L (136-145) Potassium Level 3.1 MMOL/L (3.5-5.1) L Chloride Level 106 MMOL/L (98-107) Carbon Dioxide Level 27 MMOL/L (21-32) Anion Gap 6 mmol/L (5-15) Blood Urea Nitrogen 5 mg/dL (7-18) L Creatinine 0.4 MG/DL (0.55-1.30) L Estimat Glomerular Filtration Rate mL/min (>60) Glucose Level 151 MG/DL (74-106) H Calcium Level 7.8 MG/DL (8.5-10.1) L Phosphorus Level 1.9 MG/DL (2.5-4.9) L Magnesium Level 1.4 MG/DL (1.8-2.4) L Total Bilirubin 0.5 MG/DL (0.2-1.0) Aspartate Amino Transf (AST/SGOT) 28 U/L (15-37) Alanine Aminotransferase (ALT/SGPT) 16 U/L (12-78) Alkaline Phosphatase 81 U/L (46-116) Total Protein 4.3 G/DL (6.4-8.2) L Albumin 1.5 G/DL (3.4-5.0) L Globulin 2.8 g/dL Albumin/Globulin Ratio 0.5 (1.0-2.7) L Vancomycin Level Trough 3.4 ug/mL (5.0-12.0) L Current Medications Medications (Trade) Dose Ordered Sig/Stefano Route PRN Reason Start Time Stop Time Status Last Admin Dose Admin Acetaminophen (Tylenol) 650 mg Q4H PRN RECTAL Mild Pain (Pain Scale 1-3) 04/04/19 10:42 05/04/19 10:41 Bisacodyl (Dulcolax) 10 mg DAILYPRN PRN RECTAL Constipation 04/04/19 10:45 05/04/19 10:44 Dextrose (Dextrose 50%) 25 ml Q30M PRN IV Hypoglycemia 04/05/19 17:15 05/05/19 17:14 Dextrose (Dextrose 50%) 50 ml Q30M PRN IV Hypoglycemia 04/05/19 17:15 05/05/19 17:14 Dextrose/Sodium Chloride 1,000 ml @ 50 mls/hr Q20H IV 04/07/19 10:16 05/07/19 10:15 04/07/19 10:38 Insulin Aspart (NovoLOG) BEFORE MEALS AND HS SUBQ 04/05/19 21:00 05/05/19 20:59 04/06/19 23:00 Levetiracetam 100 ml @ 400 mls/hr EVERY 6 HOURS IVPB 04/04/19 12:00 05/04/19 11:59 04/07/19 05:09 Ondansetron HCl (Zofran) 4 mg Q4H PRN IVP Nausea & Vomiting 04/04/19 10:45 05/04/19 10:44 Piperacillin Sod/ Tazobactam Sod 3.375 gm/Sodium Chloride 110 ml @ 27.5 mls/hr EVERY 8 HOURS IVPB 04/04/19 14:00 04/09/19 13:59 04/07/19 05:09 Sennosides (Senokot) 8.6 mg BIDPRN PRN ORAL Constipation 04/04/19 10:45 05/04/19 10:44 Vancomycin HCl (Vanco rx to dose) 1 ea DAILY PRN MISC . 04/06/19 09:45 05/05/19 08:59 Vancomycin HCl 500 mg/Dextrose 110 ml @ 110 mls/hr Q12HR@0000,1200 IVPB 04/07/19 12:00 04/12/19 11:59 Mikal Matos M.D. Apr 07, 2019 21:24
--- NOTE | 2019-04-07 22:36 | NUR ---
NURSE NOTES: Per Son Lenin and daughter Shereen, nyla to attempt to start IV but only on left arm. Charge Nurse attempted but not successful, family nargis aware and considered another experienced nurse/personnel to attempt another IV access. Will continue to monitor
[2019-04-08] VITALS: BP 120/57
[2019-04-08 04:00] VITALS: BP 139/54
[2019-04-08] MEDS: levETIRAcetam 500mg/NS100ml 100 ML IVPB SCH ×3 (06:00→12:00)
[2019-04-08] MEDS: Piperacillin/Tazobactam 3.375 GM in NS 110 ML IVPB SCH ×2 (06:00→14:00)
[2019-04-08] MEDS: D5 1/2NS 1,000 ML IV SCH (06:16)
[2019-04-08] MEDS: NovoLOG Insulin Flexpen SUBQ SCH ×3 (06:24→12:57)
--- NOTE | 2019-04-08 06:24 | General Progress Note ---
Assessment/Plan Problem List: (1) Brain tumor ICD Codes: D49.6 - Neoplasm of unspecified behavior of brain SNOMED: 875882446 (2) Lactic acidosis ICD Codes: E87.2 - Acidosis SNOMED: 54004793 (3) History of meningioma of the brain ICD Codes: Z86.011 - Personal history of benign neoplasm of the brain SNOMED: 614585692 (4) Encephalopathy due to metabolic factor or toxin SNOMED: 763130320 (5) Hypokalemia ICD Codes: E87.6 - Hypokalemia SNOMED: 47480821 (6) Pneumonia ICD Codes: J18.9 - Pneumonia, unspecified organism SNOMED: 764234156 (7) UTI (lower urinary tract infection) ICD Codes: N39.0 - Urinary tract infection, site not specified SNOMED: 1569614 (8) Hypothyroid ICD Codes: E03.9 - Hypothyroidism, unspecified SNOMED: 31300340 Assessment/Plan: tight glycemic control is NOT indicated no need for scheduled insulin dose continue NISS ac / hs hypoglycemia protocol in order Subjective ROS Limited/Unobtainable: Yes Allergies: Coded Allergies: No Known Allergies (Unverified , 01/20/15) Subjective events noted no IV access glucose values are fairly stable without hypoglycemia Item Value Date Time Bedside Blood Glucose 141 mg/dl H 04/07/19 2100 Bedside Blood Glucose 220 mg/dl H 04/07/19 1620 Bedside Blood Glucose 141 mg/dl H 04/07/19 1130 Bedside Blood Glucose 138 mg/dl H 04/07/19 0630 Bedside Blood Glucose 219 mg/dl H 04/06/19 2300 Objective Last 24 Hour Vital Signs Date Time Temp Pulse Resp B/P (MAP) Pulse Ox O2 Delivery O2 Flow Rate FiO2 04/08/19 04:00 97.3 54 16 139/54 (82) 99 04/08/19 04:00 66 04/08/19 00:00 98.6 57 16 120/57 (78) 99 04/07/19 21:00 Nasal Cannula 2.5 04/07/19 20:00 98.1 73 16 125/64 (84) 100 04/07/19 20:00 74 04/07/19 16:00 98.6 64 18 114/54 (74) 100 04/07/19 15:09 48 04/07/19 12:31 63 04/07/19 12:00 98.3 71 18 118/75 (89) 100 04/07/19 09:00 Nasal Cannula 2.5 04/07/19 08:00 96.8 78 18 110/53 (72) 100 04/07/19 07:59 81 Intake and Output 04/07/19 04/08/19 19:00 07:00 Output Total 800 ml Balance -800 ml Output Urine Total 800 ml Laboratory Tests 04/07/19 08:45: White Blood Count 6.6, Red Blood Count 3.94L, Hemoglobin 12.5, Hematocrit 36.3L , Mean Corpuscular Volume 92, Mean Corpuscular Hemoglobin 31.7H, Mean Corpuscular Hemoglobin Concent 34.3, Red Cell Distribution Width 13.8, Platelet Count 148L, Mean Platelet Volume 4.9L, Neutrophils (%) (Auto) 61.9, Lymphocytes (%) (Auto) 32.4, Monocytes (%) (Auto) 3.7, Eosinophils (%) (Auto) 0.8, Basophils (%) (Auto) 1.2, Sodium Level 139, Potassium Level 3.1L, Chloride Level 106, Carbon Dioxide Level 27, Anion Gap 6, Blood Urea Nitrogen 5L, Creatinine 0.4L, Estimat Glomerular Filtration Rate , Glucose Level 151H, Calcium Level 7.8L, Phosphorus Level 1.9L, Magnesium Level 1.4L, Total Bilirubin 0.5, Aspartate Amino Transf (AST/SGOT) 28, Alanine Aminotransferase ( ALT/SGPT) 16, Alkaline Phosphatase 81, Total Protein 4.3L, Albumin 1.5L, Globulin 2.8, Albumin/Globulin Ratio 0.5L 04/07/19 11:00: Vancomycin Level Trough 3.4L Height (Feet): 5 Height (Inches): 3.00 Weight (Pounds): 115 General Appearance: lethargic Neck: normal alignment Cardiovascular: normal rate Respiratory/Chest: decreased breath sounds Abdomen: normal bowel sounds Edema: 2+ Arm (L), 2+ Arm (R), 2+ Leg (L), 2+ Leg (R), 2+ Pedal (L), 2+ Pedal ( R), 2+ Generalized Objective Current Medications Medications (Trade) Dose Ordered Sig/Stefano Route PRN Reason Start Time Stop Time Status Last Admin Dose Admin Acetaminophen (Tylenol) 650 mg Q4H PRN RECTAL Mild Pain (Pain Scale 1-3) 04/04/19 10:42 05/04/19 10:41 Bisacodyl (Dulcolax) 10 mg DAILYPRN PRN RECTAL Constipation 04/04/19 10:45 05/04/19 10:44 Dextrose (Dextrose 50%) 25 ml Q30M PRN IV Hypoglycemia 04/05/19 17:15 05/05/19 17:14 Dextrose (Dextrose 50%) 50 ml Q30M PRN IV Hypoglycemia 04/05/19 17:15 05/05/19 17:14 Dextrose/Sodium Chloride 1,000 ml @ 50 mls/hr Q20H IV 04/07/19 10:16 05/07/19 10:15 04/07/19 10:38 Insulin Aspart (NovoLOG) BEFORE MEALS AND HS SUBQ 04/05/19 21:00 05/05/19 20:59 04/06/19 23:00 Levetiracetam 100 ml @ 400 mls/hr EVERY 6 HOURS IVPB 04/04/19 12:00 05/04/19 11:59 04/07/19 05:09 Ondansetron HCl (Zofran) 4 mg Q4H PRN IVP Nausea & Vomiting 04/04/19 10:45 05/04/19 10:44 Piperacillin Sod/ Tazobactam Sod 3.375 gm/Sodium Chloride 110 ml @ 27.5 mls/hr EVERY 8 HOURS IVPB 04/04/19 14:00 04/09/19 13:59 04/07/19 05:09 Sennosides (Senokot) 8.6 mg BIDPRN PRN ORAL Constipation 04/04/19 10:45 05/04/19 10:44 Vancomycin HCl (Vanco rx to dose) 1 ea DAILY PRN MISC . 04/06/19 09:45 05/05/19 08:59 Vancomycin HCl 500 mg/Dextrose 110 ml @ 110 mls/hr Q12HR@0000,1200 IVPB 04/07/19 12:00 04/12/19 11:59 Christian Cruz MD Apr 08, 2019 06:24
--- NOTE | 2019-04-08 07:46 | NUR ---
HAND-OFF: Report given to YUE Lopez.
--- NOTE | 2019-04-08 07:47 | NUR ---
NURSE NOTES: Received patient in bed. In no apparent distress. On nasal cannula at 2LPM. Contact isolation observed. No facial grimace. Will continue plan of care.
[2019-04-08 08:00] VITALS: BP 124/63
--- NOTE | 2019-04-08 08:16 | Nephrology Progress Note ---
Assessment/Plan Assessment/Plan: A/P 1) Hypokalemia- replaced yesterday again - AM labs pending - Mg/Phos replaced 2) Brain Tumor- hospice Subjective Date patient seen: Apr 08, 2019 Time patient seen: 08:14 ROS Limited/Unobtainable: Yes Allergies: Coded Allergies: No Known Allergies (Unverified , 01/20/15) Subjective Patient resting, [employer] at bedside Objective Last 24 Hour Vital Signs Date Time Temp Pulse Resp B/P (MAP) Pulse Ox O2 Delivery O2 Flow Rate FiO2 04/08/19 04:00 97.3 54 16 139/54 (82) 99 04/08/19 04:00 66 04/08/19 00:00 98.6 57 16 120/57 (78) 99 04/07/19 21:00 Nasal Cannula 2.5 04/07/19 20:00 98.1 73 16 125/64 (84) 100 04/07/19 20:00 74 04/07/19 16:00 98.6 64 18 114/54 (74) 100 04/07/19 15:09 48 04/07/19 12:31 63 04/07/19 12:00 98.3 71 18 118/75 (89) 100 04/07/19 09:00 Nasal Cannula 2.5 Intake and Output 04/07/19 04/08/19 18:59 06:59 Output Total 800 ml 150 ml Balance -800 ml -150 ml Output Urine Total 800 ml 150 ml Laboratory Tests 04/07/19 08:45: White Blood Count 6.6, Red Blood Count 3.94L, Hemoglobin 12.5, Hematocrit 36.3L , Mean Corpuscular Volume 92, Mean Corpuscular Hemoglobin 31.7H, Mean Corpuscular Hemoglobin Concent 34.3, Red Cell Distribution Width 13.8, Platelet Count 148L, Mean Platelet Volume 4.9L, Neutrophils (%) (Auto) 61.9, Lymphocytes (%) (Auto) 32.4, Monocytes (%) (Auto) 3.7, Eosinophils (%) (Auto) 0.8, Basophils (%) (Auto) 1.2, Sodium Level 139, Potassium Level 3.1L, Chloride Level 106, Carbon Dioxide Level 27, Anion Gap 6, Blood Urea Nitrogen 5L, Creatinine 0.4L, Estimat Glomerular Filtration Rate , Glucose Level 151H, Calcium Level 7.8L, Phosphorus Level 1.9L, Magnesium Level 1.4L, Total Bilirubin 0.5, Aspartate Amino Transf (AST/SGOT) 28, Alanine Aminotransferase ( ALT/SGPT) 16, Alkaline Phosphatase 81, Total Protein 4.3L, Albumin 1.5L, Globulin 2.8, Albumin/Globulin Ratio 0.5L 04/07/19 11:00: Vancomycin Level Trough 3.4L 04/08/19 07:50: Sodium Level [Pending], Potassium Level [Pending], Chloride Level [Pending], Carbon Dioxide Level [Pending], Blood Urea Nitrogen [Pending], Creatinine [ Pending], Estimat Glomerular Filtration Rate [Pending], Glucose Level [Pending] , Calcium Level [Pending] Height (Feet): 5 Height (Inches): 3.00 Weight (Pounds): 114 General Appearance: no apparent distress EENT: normal ENT inspection Neck: normal alignment Cardiovascular: normal rate, regular rhythm Respiratory/Chest: lungs clear, normal breath sounds Abdomen: non tender, soft Edema: no edema noted Arm (L), no edema noted Arm (R), no edema noted Leg (L), no edema noted Leg (R), no edema noted Pedal (L), no edema noted Pedal (R), no edema noted Generalized Robert Davis MD Apr 08, 2019 08:15
[2019-04-08 08:20] LABS: ANION GAP 5 mmol/L (5-15); BLOOD UREA NITROGEN 8 mg/dL (7-18); CALCIUM 8.2 MG/DL (8.5-10.1); CARBON DIOXIDE 28 MMOL/L (21-32); CHLORIDE 108 MMOL/L (98-107); CREATININE 0.3 MG/DL (0.55-1.30); POTASSIUM 2.8 MMOL/L (3.5-5.1); SODIUM 140 MMOL/L (136-145)
--- NOTE | 2019-04-08 10:57 | General Progress Note ---
Assessment/Plan Assessment/Plan: S: Not verbal O: seems comfortable, Not verbal .MAKES EYE CONTACT PHYSICAL EXAMINATION:GENERAL: Elderly female, lying in bed, lethargic, barely responsive, not in acute distress. Daughter and nephew at the bedside. HEENT: Normocephalic and atraumatic. Pupils reactive to light. Pale sclerae. Unable to assess oral mucosa.NECK: Supple. No lymphadenopathy. CARDIOVASCULAR: Regular rate and rhythm. No murmur or gallop. LUNGS: She had diminished breathing sounds at the bases with crackles. No wheezing or rhonchi can be heard. Normal breathing efforts. ABDOMEN: Soft, nontender, and nondistended. Normal bowel sounds. No hepatosplenomegaly or ascites.EXTREMITY: No edema or cyanosis. SKIN: No rash. No hives. Meds: reviewed and reconciled Labs: dated April 06 are pending ASSESSMENT: 1. Sepsis, healthcare associated pneumonia. 2. Brain tumor, not a candidate for aggressive management. 3. Hypokalemia. 4. Hyperosmolar nonketotic acidosis. 5. Acute metabolic encephalopathy. 6. Gastrointestinal and DVT prophylaxis. Plan: Better control of diabetes VRE colonized of the rectum consulted Nephrology I SPOKE TO THE SON YESTERDAY AFTERNOON: PER FAMILY REQUEST, WILL STOP ALL LAB DRAW. I WILL STOP IV MEDICATIONS PROCEED WITH COMFORT CARE OK TO DC TO PLAN OF CARE Subjective Allergies: Coded Allergies: No Known Allergies (Unverified , 01/20/15) Objective Last 24 Hour Vital Signs Date Time Temp Pulse Resp B/P (MAP) Pulse Ox O2 Delivery O2 Flow Rate FiO2 04/08/19 08:00 97.2 53 21 124/63 (83) 100 04/08/19 07:34 66 04/08/19 04:00 97.3 54 16 139/54 (82) 99 04/08/19 04:00 66 04/08/19 00:00 98.6 57 16 120/57 (78) 99 04/07/19 21:00 Nasal Cannula 2.5 04/07/19 20:00 98.1 73 16 125/64 (84) 100 04/07/19 20:00 74 04/07/19 16:00 98.6 64 18 114/54 (74) 100 04/07/19 15:09 48 04/07/19 12:31 63 8/13/19 12:00 98.3 71 18 118/75 (89) 100 Intake and Output 04/07/19 04/08/19 19:00 07:00 Output Total 800 ml 150 ml Balance -800 ml -150 ml Output Urine Total 800 ml 150 ml Laboratory Tests 04/07/19 11:00: Vancomycin Level Trough 3.4L 04/08/19 07:50: Sodium Level 140, Potassium Level 2.8L, Chloride Level 108H, Carbon Dioxide Level 28, Anion Gap 5, Blood Urea Nitrogen 8, Creatinine 0.3L, Estimat Glomerular Filtration Rate , Glucose Level 143H, Calcium Level 8.2L Height (Feet): 5 Height (Inches): 3.00 Weight (Pounds): 114 Yaakov Soto MD Apr 08, 2019 10:57
--- NOTE | 2019-04-08 11:58 | NUR ---
NURSE NOTES: Order obtained from Dr. Soto to stop accucheck ac and hs, and to discontinue insulin order.
[2019-04-08 12:00] VITALS: BP 116/50
[2019-04-08] MEDS: Vancomycin 500mg/D5W 110ml IVPB SCH ×4 (12:00)
--- NOTE | 2019-04-08 12:57 | NUR ---
DISCHARGE PLANNING DISCHARGE ORDER NOTED Patient has been accepted to; [facility] [address], [place] [address] Bed:16-B [phone] for Nurse to Nurse report [facility] ETA for transportation: 14:00 Addendum: 04/08/19 at 1315 by RON BAUM Patients updated bed: 201
[2019-04-08] MEDS ORDERED: D5 1/2NS 1000ml IV ONE (14:09)
[2019-04-08] MEDS ORDERED: Tubing IV Secondary IV ONE (14:09)
[2019-04-08] MEDS ORDERED: NS 275ml ONE (14:09)
--- NOTE | 2019-04-08 14:10 | NUR ---
INTER-FACILITY TRANSFER: Patient transferred to [facility], per Dr. Soto. Report given to Janett Soto LVN via telephone and [facility] ambulance staff. Patient transferred with no valuables and no medications. No Belongings verified upon transfer. Family/S.O. notified of transfer. Patient's private caregiver at bedside at time of transfer.
--- NOTE | 2019-04-09 09:12 | Discharge Summary ---
Discharge Summary Discharge Summary _ DATE OF ADMISSION: 04/04/2019 DATE OF DISCHARGE: 04/08/2019 DISCHARGED BY: Dr Soto REASON FOR ADMISSION: 88 years old female with past medical history of diabetes mellitus, brain tumor , status post surgery in 2011, seizure disorder, skin cancer, dementia, on hospice care at the long-term facility, was sent for evaluation due to decreased oral intake and increased weakness. Per family report , over the past several days patient was rapidly deteriorating. Glucose level was elevated. Upon evaluation in emergency room ABG on 2 L of nasal cannula revealed low CO2. Laboratory work-up revealed no leukocytosis , stable hemoglobin and hematocrit . Lactic acid 4.4. Potassium 2.7 , stable renal parameters and other electrolytes. Glucose 481 9. Troponin negative. Pro BNP 1388. CK-MB 1.4. Stable LFT and lipase. Urinalysis revealed pyuria, +1 protein , +4 glucose and few bacteria. Chest x-ray revealed mild increased hazy opacities in the mid and lower lung suggestive of edema and/or infiltrate. CT of the head demonstrated a mass in the right parieto-occipital region. Mass appeared to be decreased in size compared to the prior exam. Decreased density in the right frontoparietal occipital region adjacent to mass , likely related to edema and/or encephalomalacia. Similar appearance compared to the prior exam. Cerebral atrophy with probable small vessel ischemic changes. EKG revealed atrial flutter with controlled ventricular rate. Patient subsequently admitted to telemetry floor for further management. CONSULTANTS: ID specialist Dr. Matos combined rail operator Dr.De Maurer rn team leader Dr. Cruz [facility] HOSPITAL COURSE: Patient admitted to telemetry floor. Patient started on empiric antibiotic as per ID specialist recommendation. Blood cultures were negative. Urine culture revealed small colony of Bianka, likely contaminant as per ID specialist. Repeated blood cultures were negative. According to ID specialist, patient likely had aspiration . Patient was on empiric vancomycin and Zosyn. Strict aspiration precaution maintained. Hypokalemia was repleted. Roving Hauler followed. Renal parameters and electrolytes were closely monitored. Electrolytes were corrected as needed. Nephrotoxics were avoided. Further phosphorus and magnesium were repleted as well. TSH within normal limits. Stunner followed. Per rn team leader, tight glycemic control was not indicated in this situation. No need for scheduled insulin dose. Patient was continued with sliding scale of insulin as needed. Hypoglycemia protocol was on board as needed. DVT and GI prophylaxis provided. Seizure precaution maintained. Keppra continued. No evidence of seizure activity while in the hospital. Further discussion regarding future goals of care was held with the patient's son. Per family request, all the blood work and IV medications were stopped . Family expressed wishes to proceed with comfort care. Comfort care provided. Pain management was addressed as needed. Skin protocol was in place. Bowel regimen instituted. Patient was subsequently discharged to long-term facility for comfort care. FINAL DIAGNOSES: Sepsis Healthcare associated pneumonia Probably aspiration Hypokalemia Hyperosmolar nonketotic acidosis Acute metabolic encephalopathy Brain tumor Hypothyroidism Diabetes mellitus Comfort care DISCHARGE MEDICATIONS: See Medication Reconciliation list. DISCHARGE INSTRUCTIONS: Patient was discharged to the long-term facility, continue with hospice services . I have been assigned to dictate discharge summary for this account. I was not involved in the patient's management. Imelda Palacios NP Apr 09, 2019 09:12
== END 2019-04-08 14:10 | DRG 871 ==
LOC: EDBD 23:22 → EMR 04-04 00:20 → 2E 04-04 00:48 → EDBEDREQ 04-04 01:11 → 2E 04-04 06:24
DX: A41.9 Sepsis, unspecified organism (principal); E13.00 Other specified diabetes mellitus with hyperosmolarity without nonketotic hyperglycemic-hyperosmolar coma (NKHHC); G93.41 Metabolic encephalopathy; J69.0 Pneumonitis due to inhalation of food and vomit; N39.0 Urinary tract infection, site not specified; Z51.5 Encounter for palliative care; Z66 Do not resuscitate; Y95 Nosocomial condition; E87.6 Hypokalemia; D49.6 Neoplasm of unspecified behavior of brain; E03.9 Hypothyroidism, unspecified; E11.9 Type 2 diabetes mellitus without complications; Z85.828 Personal history of other malignant neoplasm of skin; E11.65 Type 2 diabetes mellitus with hyperglycemia; Z79.4 Long term (current) use of insulin; G40.909 Epilepsy, unspecified, not intractable, without status epilepticus; F03.90 Unspecified dementia, unspecified severity, without behavioral disturbance, psychotic disturbance, mood disturbance, and anxiety
CPT/HCPCS: 36415; 36600; 70450; 71045; 80048; 80053; 80202; 81003; 82550; 82553; 82803; 82962; 83036; 83605; 83690; 83735; 83880; 84100; 84443; 84484; 85025; 85610; 85730; 87040; 87081; 87086; 93005; 96361; 96365; 96375; 99285; J1815; S5561